=== PATIENT | male | born 1970 | race Caucasian/White ===

== ENCOUNTER 2020-02-14 10:33 | Emergency (ER) | payer MEDICAID, SELFPAY ==
[2020-02-14] VITALS (7 sets, daily range): BP systolic 137–175; BP diastolic 82–101; PULSE 62–85; RESP 18–20; TEMP 36.4; O2SAT 97–99; BMI 35.7
[2020-02-14] MEDS: sodium chloride 0.9% 1,000 ML 999 ML IV (11:02)
--- NOTE | 2020-02-14 11:11 | XR_ITS ---
WS: [id number] PORTABLE CHEST HISTORY: cough COMPARISON: None available. Lungs are clear and well expanded. No pleural effusion or pneumothorax. Cardiac size: Normal. Mediastinum/Aorta: Normal mediastinum. No osseous abnormality seen. XR/XR chest 1V portable [id number] IMPRESSION: Unremarkable portable chest.
--- NOTE | 2020-02-14 11:11 | CT_ITS ---
WS: [id number] CT ABDOMEN AND PELVIS WITH CONTRAST HISTORY: Abdominal pain TECHNIQUE: Imaging performed of the abdomen and pelvis with IV contrast. Single phase imaging of the abdomen. Coronal and sagittal reformats are submitted. All CT scans at [facility] use at least one of these dose optimization techniques: automated exposure control; mA and/or kV adjustment per patient size (includes targeted exams where dose is matched to clinical indication); or iterativ e reconstruction. IV CONTRAST: Visipaque 320; 95 mL IV. Oral contrast: No DLP: 1578.79 mGy.cm COMPARISON: None available. Lower thorax: Lung bases are clear. Heart is normal size. Small hiatal hernia. Liver/biliary system: Normal size liver with mild hepatic steatosis. No metastatic lesions. No intrah epatic dilatation. Gallbladder: Prior cholecystectomy. Pancreas: Normal. Spleen: Normal. Adrenal glands: Normal. Right kidney: Horseshoe shaped kidney. No obstruction or mass. Left kidney: Horseshoe shaped kidney with no obstruction or mass. Aorta: A few scattered calcified plaques within the aorta. No aneurysm. Bilateral accessory renal art eries. Several accessory renal arteries on the RIGHT. Lymphadenopathy: None. Free fluid: None. GI tract: Moderate fecal retention throughout the entire colon. The appendix is normal. There are sev eral sigmoid diverticula without acute diverticulitis. Motion artifact in the RIGHT colon obscuring d etail. May be from peristalsis. There are several overlapping loops of colon. Abdominal wall: Abdominal hernia repair with mesh attachment. No recurrent hernia. Pelvis: Well-distended urinary bladder. Bladder diverticulum from the posterior LEFT urinary bladder measures 13 mm in the ureter may insert into the diverticulum. Bones: Unremarkable. CT/CT abdomen pelvis w con* [id number] IMPRESSION: 1. No acute abdominal or pelvic abnormalities are identified. 2. Diffuse constipation. 3. Horseshoe-shaped kidneys. 4. Normal appendix. 5. Sigmoid diverticulosis without acute diverticulitis. 6. Small hiatal hernia. 7. Posterior LEFT lateral urinary bladder diverticulum.
--- NOTE | 2020-02-14 11:15 | W.ED.ABDPA2 ---
HPI - Abdominal Pain General: Chief Complaint: Abdominal Pain Stated Complaint: ABDOMINAL SWELLING AND MESH ISSUES Time Seen by Provider: 02/14/20 11:06 History of Present Illness: HPI narrative: Mr. Arteaga is a nice 49-year-old male who comes in complaining of prolonged abdominal pain. He is a difficult historian and has a hard time answering questions directly. He has a tendency to want to ramble off all of his total medical problems and has a hard time focusing on answering the questions I have asked. What I can gather is he has had a prolonged issue with abdominal pain, multiple abdominal surgeries and because of his ongoing abdominal pain his surgeon in [facility] is requesting that he have some outpatient lab work and a CT scan. He states he has had a prolonged problem with constipation and may not be vomiting as well. He denies any urinary symptoms, fever, chest pain, shortness of breath or other issues. Associated Symptoms: Reports nausea and vomiting; Denies chills, coffee ground emesis, GI cramping, diarrhea, dysuria, fever(s), heartburn, hematochezia, hematuria, hematemesis, melena and syncope Review of Systems Const: Denies: fever(s), chills, body aches, fatigue, malaise, night sweats or diaphoresis Eyes: Denies: change in vision, blurry vision or blind spots ENMT: Denies: throat pain, odynophagia, hoarseness, ear or mastoid pain, ear discharge, change in hearing or nasal discharge Card: Denies: chest pain, palpitations, irregular heart rhythm, lightheadedness, syncope, pre-syncope, dyspnea on exertion or orthopnea Resp: Denies: dyspnea, productive cough, non-productive cough, wheezing, hemoptysis or chest congestion GI: Reports: abdominal pain, nausea and vomiting; Denies: hematemesis, coffee ground emesis, heartburn, diarrhea, GI cramping, hematochezia or melena : Denies: flank pain, dysuria, urinary frequency, urinary urgency, oliguria, urinary incontinence or hematuria Musc: Denies: neck pain, back pain, extremity pain, extremity swelling, joint pain, joint swelling, joint redness, joint warmth or joint stiffness Skin/Breast: Denies: rash, pruritus, erythema, skin tenderness or jaundice Neuro: Denies: headache(s), numbness in extremities, weakness in extremities, sensory changes, lack of coordination, difficulty walking, dizziness, vertigo, confusion or Slurred speech present Endo: Denies: polyuria, polydipsia, tired all the time, cold intolerance, excessive sweating, flushing, hot flashes or heat intolerance Jordin/Lymph: Denies: easy bruising, easy bleeding, petechiae, purpura or enlarged lymph nodes All/Imm: Denies: urticaria, throat swelling, tongue swelling, facial swelling or acute wheezing PFSH ED PFSH: Medical History COPD (chronic obstructive pulmonary disease) Degenerative disc disease Hypertension Obstructive sleep apnea Rheumatoid arthritis Surgical History (Updated 02/14/20 @ 11:18 by Angie Rodriguez) H/O abdominal surgery H/O colonoscopy H/O sinus surgery History of esophagogastroduodenoscopy (EGD) Social History Smoking and tobacco status: never smoked Physical Exam Const: COMMON NORMALS: no acute distress, patient oriented x3, no limitations, healthy appearing and well nourished EXAM LIMITATIONS: no altered mental status GENERAL APPEARANCE: cooperative, well kempt and well developed HENMT: COMMON NORMALS: normocephalic, atraumatic, hearing grossly normal bilaterally, external ears normal, EAC's normal, Normal external nose present and moist oral mucous membranes HEAD & SCALP: normal to inspection, normocephalic and atraumatic FACE & SINUS: normal facial exam and face symmetric NOSE: Normal external nose present and Normal nares present EXTERNAL EAR: Yes external ears normal EXTERNAL AUDITORY CANAL: EAC's normal MOUTH: Normal oral and palatal mucosa present, lip normal and tongue normal Eye: COMMON NORMALS: Equal, round and reactive pupils present, EOMs intact bilaterally, conjunctivae normal and no scleral icterus GENERAL EYE: appearance normal, both eyes and all related structures and normal light reflex ALIGNMENT: Yes alignment normal PERIORBITAL: periorbital findings normal EYELID: eyelids normal CONJUNCTIVA: Yes conjunctivae normal SCLERA: sclerae normal PUPIL: Yes Equal, round and reactive pupils present DIRECT OPHTHALMOSCOPY: Yes normal light reflex Neck/C-Spine: COMMON NORMALS: full ROM, no lymphadenopathy, supple, no meningeal signs and no JVD GENERAL: Yes normal visual inspection and Yes trachea midline CERVICAL SPINE: Yes cervical ROM normal Chest: COMMONS NORMALS: normal inspection of the chest and normal palpation of entire chest wall Resp: COMMON NORMALS: normal respiratory effort, No retractions and No use of accessory muscles EFFORT & INSPECTION: Yes able to speak in complete sentences and Yes audible wheezes AUSCULTATION: no crackles, no rales, no rhonchi and wheezes Cardio: COMMON NORMALS: no JVD, regular rate, regular rhythm, S1 normal heart sound present, S2 normal heart sound present, No gallops present (Cardio), No clicks present (Cardio), No murmurs present (Cardio) and No rub (Cardio) RATE: regular rate RHYTHM: regular rhythm HEART SOUNDS: S1 normal heart sound present, S2 normal heart sound present, no click, no gallops, no murmurs and no rubs GI: COMMON NORMALS: Soft to palpation, No hepatosplenomegaly present and no masses PALPATION: Yes Soft to palpation, Yes Tenderness to palpation present (GI) (Mild diffusely without rebound, guarding or rigidity.), No Guarding due to palpation present (GI), No Rigid due to palpation, Yes No hepatosplenomegaly present, No Hernia present, No Palpable mass present and No Pulsatile mass present : COMMON NORMALS: Yes no CVA tenderness BLADDER/KIDNEY EXAM: Yes no CVA tenderness Back/Pelvis: COMMON NORMALS: no CVA tenderness, thoracic and lumbar spine normal to inspection, no thoracic nor lumbar tenderness and thoraco-lumbar ROM normal Extremity: COMMON NORMALS: normal to inspection, full ROM, capillary refill normal, no joint enlargement, no clubbing, cyanosis or edema and no calf tenderness Neuro: ARINA COMA SCALE: document GCS findings Shoshoni coma scale eye opening: Spontaneous Shoshoni coma scale verbal response: Orientated Arina coma scale motor response: Obey commands Arina coma scale total score: 15 COMMON NORMALS: patient oriented x3, CN's II-XII intact bilaterally, moves all extremities, no focal motor deficits and no sensory deficits noted MENINGEAL SIGNS: Yes no meningeal signs SPEECH: speech normal Psych: COMMON NORMALS: mental status grossly normal, Normal thought process present, cooperative, normal affect, speech normal and activity/motor behavior normal APPEARANCE: Yes well kempt SPEECH: Yes normal speech THOUGHT PROCESS: Normal thought process present Skin: COMMON NORMALS: no rashes or lesions noted, turgor normal, no jaundice, no petechiae and no mottling GENERAL SKIN EXAM: no rashes or lesions noted and turgor normal Course Vital Signs: Vital signs: Vital Signs Temperature 97.6 F 02/14/20 11:08 Pulse Rate 85 02/14/20 14:00 Respiratory Rate 18 02/14/20 14:00 Blood Pressure 144/93 02/14/20 14:00 Pulse Oximetry 97 02/14/20 14:00 MDM - Abdominal Pain MDM Narrative: Medical decision making narrative: Arrival -Mr. Arteaga is a 49-year-old male he comes in complaining of primarily abdominal pain with associated constipation and vomiting. His vital signs are stable and his exam does not reveal any evidence of a surgical abdomen. Differential is considerable including AAA, bowel obstruction, appendicitis, colitis, ascites among many others. I will proceed with investigation primary toward this but I will also check a chest x-ray and give the patient breathing treatments for his wheezing which I believe his COPD is just mildly exacerbated. He is in no respiratory distress. Discharge -Mr. Gomez CT scan is unremarkable except for constipation. His lactic is negative and by exam he does not have pain out of proportion so believe this rules out mesenteric ischemia. There is no sign of appendicitis. I believe the patient has a long ongoing functional bowel issue. I did discuss the case with his surgeon that he is going to see Wednesday Dr. Miguel, and he agrees with the work-up today and the discharge to follow-up with him. Patient understands to return should his symptoms change or worsen. At this time I see no acute life or limb threatening illness. His lungs are cleared after his breathing treatments. He agrees to follow-up as directed or return if needed. Lab Data: Attestation: I reviewed the patient's lab results. Labs: Lab Results 02/14/20 02/14/20 02/14/20 Range/Units 11:45 11:45 11:45 WBC 6.9 (4.0-10.0) 10^3/ uL RBC 4.52 (4.1-5.3) 10^6/u L Hgb 13.5 (11.7-16.6) g/dL Hct 40.0 L (42.0-52.0) % MCV 88.5 (80-94) fL MCH 29.9 (28.0-34.0) pg MCHC 33.8 (30.0-36.0) g/dL RDW 12.3 (12.1-15.1) % Plt Count 251 (130-400) 10^3/c mm MPV 11.9 H (7.4-10.4) fL Nucleated RBC % (a uto) 0 % Total Counted 100 (0-100) Segmented Neutroph ils 37 % Band Neutrophils 4.0 % Lymphocytes (Manua l) 43 % Monocytes (Manual) 9.0 % Absolute Monocytes 0.6 (0.1-0.6) 10^3/c mm Eosinophils (Manua l) 4 % Absolute Eosinophi ls 0.2 (0.0-0.7) 10^3/c mm Myelocytes 3.0 % Nucleated RBCs # 0.0 /100WBC Platelet Estimate Normal (Normal) Specimen Type Sample Site ABG pH (7.35-7.45) ABG pCO2 (35-45) mmHg ABG HCO3 (22-26) mmol/L ABG Base Excess (-2.0-2.0) mmol/ L David Test Hematocrit (42-52) % O2 Delivery Device O2 Liters/Min % FiO2 % Educational Institution Curator ID Sodium 137 (136-145) mmol/L Potassium 3.8 (3.5-5.1) mmol/L Chloride 102 (98-107) mmol/L Carbon Dioxide 25 (22-29) mmol/L Anion Gap 13.8 (5-19) BUN 6 (6-20) mg/dL Creatinine 0.7 (0.7-1.2) mg/dL GFR Calculation 119.9 (90-130) mL/min Glucose 121 H (65-115) mg/dL Calculated Osmolal ity 281 L (285-295) mOsm/k g Lactic Acid (0.5-2.2) mmol/L Calcium 10.1 (8.5-10.5) mg/dL Magnesium 2.2 (1.7-2.3) mg/dL Total Bilirubin 0.2 (0.15-1.2) mg/dL AST 32 (0-40) U/L ALT 57 H (0-41) U/L Alkaline Phosphata se 65 (40-130) IU/L Troponin T Baselin e (0-15) ng/mL Troponin T 120 Min kashia (0-15) ng/mL Delta Troponin T (0-10) ABS# Total Protein 7.6 (6.6-8.7) g/dL Albumin 4.4 (3.5-5.2) g/dL Globulin 3.2 (1.3-4.6) g/dL Lipase 27 (13-60) U/L Urine Color Yellow (Yellow) Urine Appearance Sl hazy (CLEAR) Urine pH 8 H (5-7) Ur Specific Gravit y 1.010 (1.005-1.030) Urine Protein Neg (Negative) Urine Glucose (UA) Norm (Normal) Urine Ketones Negative (Negative) Urine Blood Neg (Negative) Urine Nitrate Negative (Negative) Urine Bilirubin Neg (NEGATIVE) Urine Urobilinogen Norm (Negative) mg/dL Ur Leukocyte Angeline ase Negative (Negative) Urine RBC None (0-2) /hpf Urine WBC None (0-5) /hpf Ur Squamous Epith Cells 0-4 H (0-5) Urine Bacteria 1+ H (NONE) 02/14/20 02/14/20 02/14/20 Range/Units 11:45 12:20 12:48 WBC (4.0-10.0) 10^3/ uL RBC (4.1-5.3) 10^6/u L Hgb (11.7-16.6) g/dL Hct (42.0-52.0) % MCV (80-94) fL MCH (28.0-34.0) pg MCHC (30.0-36.0) g/dL RDW (12.1-15.1) % Plt Count (130-400) 10^3/c mm MPV (7.4-10.4) fL Nucleated RBC % (a uto) % Total Counted (0-100) Segmented Neutroph ils % Band Neutrophils % Lymphocytes (Manua l) % Monocytes (Manual) % Absolute Monocytes (0.1-0.6) 10^3/c mm Eosinophils (Manua l) % Absolute Eosinophi ls (0.0-0.7) 10^3/c mm Myelocytes % Nucleated RBCs # /100WBC Platelet Estimate (Normal) Specimen Type Not specified Sample Site Radial, right ABG pH 7.37 (7.35-7.45) ABG pCO2 51.3 H (35-45) mmHg ABG HCO3 29.4 H (22-26) mmol/L ABG Base Excess 3.0 H (-2.0-2.0) mmol/ L David Test Pos Hematocrit 39.8 L (42-52) % O2 Delivery Device Nc O2 Liters/Min 1.0 % FiO2 24.0 % Educational Institution Curator ID amh Sodium (136-145) mmol/L Potassium (3.5-5.1) mmol/L Chloride (98-107) mmol/L Carbon Dioxide (22-29) mmol/L Anion Gap (5-19) BUN (6-20) mg/dL Creatinine (0.7-1.2) mg/dL GFR Calculation (90-130) mL/min Glucose (65-115) mg/dL Calculated Osmolal ity (285-295) mOsm/k g Lactic Acid 1.2 (0.5-2.2) mmol/L Calcium (8.5-10.5) mg/dL Magnesium (1.7-2.3) mg/dL Total Bilirubin (0.15-1.2) mg/dL AST (0-40) U/L ALT (0-41) U/L Alkaline Phosphata se (40-130) IU/L Troponin T Baselin e 6 (0-15) ng/mL Troponin T 120 Min kashia (0-15) ng/mL Delta Troponin T (0-10) ABS# Total Protein (6.6-8.7) g/dL Albumin (3.5-5.2) g/dL Globulin (1.3-4.6) g/dL Lipase (13-60) U/L Urine Color (Yellow) Urine Appearance (CLEAR) Urine pH (5-7) Ur Specific Gravit y (1.005-1.030) Urine Protein (Negative) Urine Glucose (UA) (Normal) Urine Ketones (Negative) Urine Blood (Negative) Urine Nitrate (Negative) Urine Bilirubin (NEGATIVE) Urine Urobilinogen (Negative) mg/dL Ur Leukocyte Angeline ase (Negative) Urine RBC (0-2) /hpf Urine WBC (0-5) /hpf Ur Squamous Epith Cells (0-5) Urine Bacteria (NONE) 05/13/20 Range/Units 13:40 WBC (4.0-10.0) 10^3/ uL RBC (4.1-5.3) 10^6/u L Hgb (11.7-16.6) g/dL Hct (42.0-52.0) % MCV (80-94) fL MCH (28.0-34.0) pg MCHC (30.0-36.0) g/dL RDW (12.1-15.1) % Plt Count (130-400) 10^3/c mm MPV (7.4-10.4) fL Nucleated RBC % (a uto) % Total Counted (0-100) Segmented Neutroph ils % Band Neutrophils % Lymphocytes (Manua l) % Monocytes (Manual) % Absolute Monocytes (0.1-0.6) 10^3/c mm Eosinophils (Manua l) % Absolute Eosinophi ls (0.0-0.7) 10^3/c mm Myelocytes % Nucleated RBCs # /100WBC Platelet Estimate (Normal) Specimen Type Sample Site ABG pH (7.35-7.45) ABG pCO2 (35-45) mmHg ABG HCO3 (22-26) mmol/L ABG Base Excess (-2.0-2.0) mmol/ L David Test Hematocrit (42-52) % O2 Delivery Device O2 Liters/Min % FiO2 % Educational Institution Curator ID Sodium (136-145) mmol/L Potassium (3.5-5.1) mmol/L Chloride (98-107) mmol/L Carbon Dioxide (22-29) mmol/L Anion Gap (5-19) BUN (6-20) mg/dL Creatinine (0.7-1.2) mg/dL GFR Calculation (90-130) mL/min Glucose (65-115) mg/dL Calculated Osmolal ity (285-295) mOsm/k g Lactic Acid (0.5-2.2) mmol/L Calcium (8.5-10.5) mg/dL Magnesium (1.7-2.3) mg/dL Total Bilirubin (0.15-1.2) mg/dL AST (0-40) U/L ALT (0-41) U/L Alkaline Phosphata se (40-130) IU/L Troponin T Baselin e (0-15) ng/mL Troponin T 120 Min kashia 6.74 (0-15) ng/mL Delta Troponin T 0.74 (0-10) ABS# Total Protein (6.6-8.7) g/dL Albumin (3.5-5.2) g/dL Globulin (1.3-4.6) g/dL Lipase (13-60) U/L Urine Color (Yellow) Urine Appearance (CLEAR) Urine pH (5-7) Ur Specific Gravit y (1.005-1.030) Urine Protein (Negative) Urine Glucose (UA) (Normal) Urine Ketones (Negative) Urine Blood (Negative) Urine Nitrate (Negative) Urine Bilirubin (NEGATIVE) Urine Urobilinogen (Negative) mg/dL Ur Leukocyte Angeline ase (Negative) Urine RBC (0-2) /hpf Urine WBC (0-5) /hpf Ur Squamous Epith Cells (0-5) Urine Bacteria (NONE) Imaging Data ^: CT Abd/Pel: Radiologist's impression: [place] [address] CT Scan Report Signed Patient: OMAR GOMEZ Unit #: [id number] : 1970 Age/Sex: 49 / M ADM Date: 02/14/20 Loc: ER Room/Bed: Attending Dr: Ordering Provider/Ordering MD: Angie Rodriguez DO Date of Service: 02/14/20 Procedure(s): CT abdomen pelvis w con* [id number] Accession Number(s): [id number] Report Number: [id number] WS: [id number] CT ABDOMEN AND PELVIS WITH CONTRAST HISTORY: Abdominal pain TECHNIQUE: Imaging performed of the abdomen and pelvis with IV contrast. Single phase imaging of the abdomen. Coronal and sagittal reformats are submitted. All CT scans at [facility] use at least one of these dose optimization techniques: automated exposure control; mA and/or kV adjustment per patient size (includes targeted exams where dose is matched to clinical indication); or iterative reconstruction. IV CONTRAST: Visipaque 320; 95 mL IV. Oral contrast: No DLP: 1578.79 mGy.cm COMPARISON: None available. Lower thorax: Lung bases are clear. Heart is normal size. Small hiatal hernia. Liver/biliary system: Normal size liver with mild hepatic steatosis. No metastatic lesions. No intrahepatic dilatation. Gallbladder: Prior cholecystectomy. Pancreas: Normal. Spleen: Normal. Adrenal glands: Normal. Right kidney: Horseshoe shaped kidney. No obstruction or mass. Left kidney: Horseshoe shaped kidney with no obstruction or mass. Aorta: A few scattered calcified plaques within the aorta. No aneurysm. Bilateral accessory renal arteries. Several accessory renal arteries on the RIGHT. Lymphadenopathy: None. Free fluid: None. GI tract: Moderate fecal retention throughout the entire colon. The appendix is normal. There are several sigmoid diverticula without acute diverticulitis. Motion artifact in the RIGHT colon obscuring detail. May be from peristalsis. There are several overlapping loops of colon. Abdominal wall: Abdominal hernia repair with mesh attachment. No recurrent hernia. Pelvis: Well-distended urinary bladder. Bladder diverticulum from the posterior LEFT urinary bladder measures 13 mm in the ureter may insert into the diverticulum. Bones: Unremarkable. CT/CT abdomen pelvis w con* [id number] IMPRESSION: 1. No acute abdominal or pelvic abnormalities are identified. 2. Diffuse constipation. 3. Horseshoe-shaped kidneys. 4. Normal appendix. 5. Sigmoid diverticulosis without acute diverticulitis. 6. Small hiatal hernia. 7. Posterior LEFT lateral urinary bladder diverticulum. Dictated By: Cindy Coates DO Signed By: Cindy Coates DO Signed Date/Time: 02/14/20 1250 DD/ 1243 EKG Data ^: EKG 1: Attestation: I personally reviewed and interpreted this EKG as follows: EKG interpretation date: 02/14/20 EKG interpretation time: 13:52 Interpretation: Normal sinus rhythm at 76 beats a minute, no blocks, normal intervals, no acute ST or T wave changes. Discharge Plan Discharge Patient Disposition: Home, Self-Care Clinical Impression: Abdominal pain Qualifiers: Abdominal location: generalized Qualified Code(s): R10.84 - Generalized abdominal pain Constipation Qualifiers: Constipation type: unspecified constipation type Qualified Code(s): K59.00 - Constipation, unspecified Condition: Stable Prescriptions: New Zofran 4 mg tablet 4 mg PO Q6H PRN (Reason: nausea and vomiting) Qty: 20 RF: 0 lactulose 20 gram packet 20 gm PO DAILY Qty: 30 RF: 0 No Action ipratropium-albuterol 0.5 mg-3 mg(2.5 mg base)/3 mL Solution For Nebulization 3 ml INHALATION TID PRN (Reason: Shortness Of Breath) RF: 0 Topamax 25 mg Tablet 25 mg PO BID RF: 0 omeprazole 40 mg Capsule,Delayed Release(Dr/Ec) 40 mg PO DAILY RF: 0 sildenafil 100 mg Tablet 100 mg PO DAILY PRN (Reason: Sexual Activity) RF: 0 meloxicam 7.5 mg Tablet 7.5 mg PO DAILY RF: 0 alprazolam 0.5 mg Tablet 0.5 mg PO TID PRN (Reason: Anxiety) RF: 0 Flomax 0.4 mg Capsule 0.4 mg PO DAILY RF: 0 amlodipine 10 mg Tablet 10 mg PO DAILY RF: 0 esomeprazole magnesium 40 mg Capsule,Delayed Release(Dr/Ec) 40 mg PO DAILY RF: 0 promethazine 25 mg Tablet 25 mg PO Q6H PRN (Reason: Nausea) RF: 0 DOK 100 mg Capsule 100 mg PO BID RF: 0 albuterol sulfate 90 mcg/actuation Hfa Aerosol Inhaler 2 puff INHALATION TID PRN (Reason: Shortness Of Breath) RF: 0 metoclopramide HCl 10 mg Tablet 10 mg PO DAILY RF: 0 hydroxyzine pamoate 25 mg Capsule 25 mg PO TID PRN (Reason: Anxiety) RF: 0 tizanidine 4 mg Capsule 4 mg PO Q6H PRN (Reason: Muscle Pain) RF: 0 Symbicort 80-4.5 mcg/actuation Hfa Aerosol Inhaler 2 puff INHALATION BID RF: 0 Mucinex 1,200 mg Tablet Extended Release 12hr 1,200 mg PO BID RF: 0 Butrans 7.5 mcg/hour Patch Weekly 1 patch TRANSDERMAL Q7D RF: 0 Discharge Orders: Discharge Order (Routine); Ordered 02/14/20 Ordered By: Angie Rodriguez Discharge Diet: Advance as tolerated and Clear Liquid Discharge Activity: Resume usual activity Patient Instructions: Abdominal Pain (ED) Activity Restrictions/Additional Instructions: Please return to the ER immediately for any of the signs or symptoms listed on your discharge instruction sheets, worsening/changing of your symptoms, you are not getting better as quickly as expected, or for ANY other cause or concerns. Return tomorrow to get a copy of your medical records. Take these with you to your appointment on Wednesday with Dr. Miguel. If your pain becomes worse, you develop a fever, you began to vomit, or have any other problems please return to the ER immediately for recheck. Coding Level of Care Code ED Clothes Separator for Rob Fwd Exam Comprehensive
[2020-02-14] MEDS: ondansetron 2 mg/ML SDV 2 mL 4 MG IVP (11:35)
[2020-02-14] MEDS: sodium chloride 0.9% 1,000 ML 100 ML IV (11:35)
[2020-02-14 12:09] LABS: Hemoglobin 13.5 g/dL (11.7-16.6); Mean Corpuscular HGB Conc 33.8 g/dL (30.0-36.0); Mean Corpuscular Hemoglobin 29.9 pg (28.0-34.0); Mean Corpuscular Volume 88.5 fL (80-94); Mean Platelet Volume 11.9 fL (7.4-10.4); Nucleated Red Blood Cells % 0 %; Platelet Count 251 10^3/cmm (130-400); Red Blood Count 4.52 10^6/uL (4.1-5.3); Red Cell Distribution Width 12.3 % (12.1-15.1); White Blood Count 6.9 10^3/uL (4.0-10.0)
[2020-02-14] MEDS: iodixanol 320 mg/mL 100mL Btl IV (12:16)
[2020-02-14] MEDS: ipratropium-albuterol 3 mL Neb 9 ML INHALATION (12:21)
[2020-02-14 12:22] LABS: Alanine Aminotransferase 57 U/L (0-41); Albumin Level 4.4 g/dL (3.5-5.2); Alkaline Phosphatase 65 IU/L (40-130); Anion Gap 13.8 (5-19); Aspartate Amino Transferase 32 U/L (0-40); Blood Urea Nitrogen 6 mg/dL (6-20); Calcium 10.1 mg/dL (8.5-10.5); Carbon Dioxide 25 mmol/L (22-29); Chloride 102 mmol/L (98-107); Creatinine Clr Calc Pharmacy 151.0846; Globulin 3.2 g/dL (1.3-4.6); Glomerular Filtration Rate 119.9 mL/min (90-130); Glucose 121 mg/dL (65-115); Lipase 27 U/L (13-60); Magnesium 2.2 mg/dL (1.7-2.3); Osmolality Calculated 281 mOsm/kg (285-295); Potassium 3.8 mmol/L (3.5-5.1); Sodium 137 mmol/L (136-145); Total Bilirubin 0.2 mg/dL (0.15-1.2); Total Protein 7.6 g/dL (6.6-8.7)
[2020-02-14 12:31] LABS: Urine Appearance SL Hazy (CLEAR); Urine Color Yellow (Yellow)
[2020-02-14 12:31] LABS: ABG PCO2 51.3 mmHg (35-45); ABG PH Result 7.37 (7.35-7.45); Arterial Blood Gas Hematocrit 39.8 % (42-52); Blood Gas Allen Test Pos; Blood Gas Operator Identificat amh; Blood Gas Sample Site Radial, right; HCO3 ABG 29.4 mmol/L (22-26); Oxygen Device NC; PO2 ABG 39.6 mmHg (80.0-100.0)
[2020-02-14 12:32] LABS: Blood Gas Sample Type Not specified
[2020-02-14 12:32] LABS: pH Urine 8 (5-7)
[2020-02-14 12:33] LABS: Bilirubin Urine Neg (NEGATIVE); Blood Urine Neg (Negative); Glucose Urine UA Norm (Normal); Ketones Urine Negative (Negative); Leukocyte Esterase Urine Negative (Negative); Nitrate Urine Negative (Negative); Protein Urine Neg (Negative); Urobilinogen Urine Norm (Negative)
--- NOTE | 2020-02-14 12:33 | ECG_ITS ---
Measurements Intervals [place] Rate: 73 P: 62 NV: 181 QRS: -5 QRSD: 106 T: 14 QT: 398 QTc: 440 SINUS RHYTHM No previous ECG available for comparison Electronically Signed On 02-14-2020 20:33:17 CDT by Sharlene Becerra M.D. [email or web address]
[2020-02-14 12:34] LABS: Bacteria Urine 1+; Squamous Epithelial Cell Urine 0-4 (0-5)
[2020-02-14 12:35] LABS: Add Urine Culture? No
[2020-02-14 13:06] LABS: Lactic Sepsis W/Reflex 1.2 mmol/L (0.5-2.2)
[2020-02-14 13:06] LABS: Slide Review Slide Review Perform; Troponin(5th) Baseline 6 ng/mL (0-15)
[2020-02-14 13:09] LABS: Absolute Eosinophils 0.2 10^3/cmm (0.0-0.7); Absolute Segmented Neutrophil 2.5 10/cmm (1.6-7.1); Band Neutrophils Absolute 0.3 10^3/cmm (0.0-1.2); Eosinophils 4 %; Lymphocytes 43 %; Monocytes Absolute 0.6 10^3/cmm (0.1-0.6); Platelet Estimate Normal (Normal); Segmented Neutrophils 37 %; Total Cells Counted 100 (0-100)
[2020-02-14 14:04] LABS: Troponin 5 2HR 6.74 ng/mL (0-15); Troponin 5 2HR Delta 0.74 ABS# (0-10)
[2020-02-14] MEDS: metoclopramide 5 mg/mL SDV 2 mL 10 MG IV (14:10)
== END 2020-02-14 15:02 | disposition home or self-care (01) ==
PROVIDERS: Emergency Provider Emergency Medicine
DX: K59.00 Constipation, unspecified (principal); J44.9 Chronic obstructive pulmonary disease, unspecified; I10 Essential (primary) hypertension; M06.9 Rheumatoid arthritis, unspecified
CPT/HCPCS: 12345; 36415; 36600; 71045; 74177; 80053; 81001; 82803; 83605; 83690; 83735; 84484; 85007; 85025; 93005; 94640; 96361; 96374; 96375; 96376; 99284; J0131; J2405; J2765; J7030; Q9967

== ENCOUNTER 2020-06-03 08:59 | Outpatient (CLI) | payer MEDICAID, SELFPAY ==
--- NOTE | 2020-06-03 09:05 | US_ITS ---
WS: [id number] Complete ABDOMINAL ULTRASOUND HISTORY: CARCINOMA R GROIN/ABD PAIN/N/V/COLON CA/PROSTATE CA COMPARISON: 02/14/2020 Disc examination is significantly limited by body habitus. Liver: 18.7 cm in length. Moderate enlargement with hepatic steatosis. No mass identified. No bile du ct dilatation. Gallbladder: Prior cholecystectomy. Pancreas: Hypoechoic area near the pancreatic head. The entire pancreas is poorly visualized. This hy poechoic area may impart be related to the IVC, portal vein or stomach. Patient's body habitus makes this examination is adequate. CBD: 0.3 cm. Right kidney: 11.4 cm x 5.7 cm x 5.1 cm. No mass, cortical thickening or hydronephrosis. Patient has a known horseshoe kidney. Left kidney: 10.6 cm x 3.9 cm x 5.5 cm. No mass, cortical thickening or hydronephrosis. Spleen: Normal size and echogenicity. Aorta and IVC are not well visualized. No ascites. US/US abdomen complete* [id number] IMPRESSION: 1. Technically very limited evaluation of the abdominal structures due to body habitus. 2. Prior cholecystectomy. 3. Horseshoe kidney. 4. Abnormal appearance of the pancreas. Pancreas is poorly visualized. Recent CT from 02/14/2020 demonstrated a normal pancreas. May need follow-up imaging of the pancreas and abdominal structures by CT with contrast to better evaluate f or abnormalities. 5. Hepatic steatosis and hepatomegaly. 6. No ascites.
== END 2020-06-03 09:00 | disposition home or self-care (01) ==
LOC: RAD 08:59
PROVIDERS: PCP Nurse Practitioner Family; Visit Provider Nurse Practitioner Family
DX: C76.3 Malignant neoplasm of pelvis (principal); R10.9 Unspecified abdominal pain; C18.9 Malignant neoplasm of colon, unspecified; C61 Malignant neoplasm of prostate; Q63.1 Lobulated, fused and horseshoe kidney; K76.0 Fatty (change of) liver, not elsewhere classified; R16.0 Hepatomegaly, not elsewhere classified
CPT/HCPCS: 76700

== ENCOUNTER 2020-11-02 20:37 | Observation (INO) | payer MEDICAID, SELFPAY ==
[2020-11-02 20:56] VITALS: BP 152/81; PULSE 94; RESP 14; TEMP 36.6; O2SAT 98; BMI 33.1
[2020-11-02 21:15] VITALS: BP 141/81; PULSE 88; RESP 18; O2SAT 98
--- NOTE | 2020-11-02 21:15 | ECG_ITS ---
[facility] Test Date: 2020-11-02 Pat Name: Paco Escobedo Department: Room: 103 Gender: Male Clinical Pharmacologist: JAZZY CAMPBELLB: 1970 Requested By: Kimani Rowe Order Number: [id number] Shawna MD: Darwin Hand M.D. Measurements Intervals [place] Rate: 89 P: 48 AL: 157 QRS: -14 QRSD: 106 T: 59 QT: 355 QTc: 433 Interpretive Statements SINUS RHYTHM Compared to ECG 02/14/2020 13:51:14 No significant changes Electronically Signed On 11-03-2020 17:03:58 ROLL PLUGGER MACHINE OPERATOR by Darwin Hand M.D. [id number]
--- NOTE | 2020-11-02 21:15 | XRR_ITS ---
PROCEDURE INFORMATION: Exam: XR Chest, 1 View Exam date and time: 11/02/2020 9:19 PM Age: 50 years old Clinical indication: Chest pain; Additional info: Cp TECHNIQUE: Imaging protocol: XR of the chest Views: 1 view. COMPARISON: CR XR chest 1V portable [id number] 02/14/2020 11:53 AM FINDINGS: Lungs: Unremarkable. No consolidation. Pleural spaces: Unremarkable. No pleural effusion. No pneumothorax. Heart/Mediastinum: Unremarkable. No cardiomegaly. Bones/joints: Unremarkable. XR/XR chest 1V portable [id number] IMPRESSION: No acute findings.
[2020-11-02 21:37] VITALS: BP 154/81; PULSE 108; RESP 18; O2SAT 97
[2020-11-02 21:37] LABS: Basophils # 0.1 10^3/uL (0.0-0.1); Basophils % 0.6 %; Eosinophils # 0.3 10^3/uL (0.0-0.8); Eosinophils % 3.3 %; Hematocrit 41.3 % (42.0-52.0); Hemoglobin 13.7 g/dL (11.7-16.6); Lymphocytes # 2.8 10^3/uL (0.8-4.8); Lymphocytes % 33.5 %; Mean Corpuscular HGB Conc 33.2 g/dL (30.0-36.0); Mean Corpuscular Hemoglobin 29.5 pg (28.0-34.0); Mean Corpuscular Volume 88.8 fL (80-94); Mean Platelet Volume 11.1 fL (7.4-10.4); Monocytes # 0.6 10^3/uL (0.2-0.9); Monocytes % 6.8 %; Neutrophils # 4.67 10^3/uL (1.8-7.7); Neutrophils % 55.2 %; Nucleated Red Blood Cells % 0 %; Platelet Count 275 10^3/cmm (130-400); Red Blood Count 4.65 10^6/uL (4.1-5.3); Red Cell Distribution Width 13.1 % (12.1-15.1); White Blood Count 8.5 10^3/uL (4.0-10.0)
[2020-11-02 21:50] LABS: D Dimer <= 0.27 ug/mIFEU (0-0.59)
[2020-11-02] MEDS: aspirin 81 mg Chew Tablet 324 MG PO (21:54)
[2020-11-02 21:55] LABS: Troponin(5th) Baseline 8 ng/L (0-15)
[2020-11-02 21:59] LABS: Add Urine Microscopic? NO
[2020-11-02 22:00] VITALS: BP 114/49; PULSE 91; RESP 18; O2SAT 98
[2020-11-02 22:03] LABS: Alanine Aminotransferase 43 U/L (0-41); Albumin Level 4.4 g/dL (3.5-5.2); Alkaline Phosphatase 74 IU/L (40-130); Anion Gap 14.4 (5-19); Aspartate Amino Transferase 27 U/L (0-40); Blood Urea Nitrogen 18 mg/dL (6-20); Calcium 9.6 mg/dL (8.5-10.5); Carbon Dioxide 24 mmol/L (22-29); Chloride 103 mmol/L (98-107); Globulin 2.4 g/dL (1.3-4.6); Glomerular Filtration Rate 89.3 mL/min (90-130); Glucose 119 mg/dL (65-115); NT Pro B Type Natriuretic Pept 8 pg/mL (0-125); Osmolality Calculated 289 mOsm/kg (285-295); Potassium 3.4 mmol/L (3.5-5.1); Sodium 138 mmol/L (136-145); Total Bilirubin 0.4 mg/dL (0.15-1.2); Total Protein 6.8 g/dL (6.6-8.7)
[2020-11-02 22:38] LABS: Bilirubin Urine Neg (Negative); Blood Urine Neg (Negative); Glucose Urine UA Norm (Normal); Ketones Urine 1+ (Negative); Leukocyte Esterase Urine Negative (Negative); Nitrate Urine Negative (Negative); Protein Urine Neg (Negative); Urine Appearance Clear (CLEAR); Urine Color Yellow (Yellow); Urobilinogen Urine 1 mg/dL (Negative); pH Urine 5 (5-7)
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
[2020-11-02 23:00] VITALS: BP 103/56; PULSE 79; RESP 18; O2SAT 98
--- NOTE | 2020-11-02 23:15 | ECG_ITS ---
[facility] Test Date: 2020-11-02 Pat Name: Paco Escobedo Department: Room: 103 Gender: Male Wall And Floor Tiler: : 1970 Requested By: Kimani Rowe Order Number: [id number] Matos MD: Darwin Hand M.D. Measurements Intervals [place] Rate: 78 P: 55 MI: 171 QRS: -18 QRSD: 100 T: 51 QT: 392 QTc: 447 Interpretive Statements SINUS RHYTHM INCOMPLETE RIGHT BUNDLE BRANCH BLOCK [90+ ms QRS DURATION, TERMINAL R IN V1/V2, 40+ ms S IN I/aVL/V4/V5/V6] Compared to ECG 02/14/2020 13:51:14 Incomplete right bundle-branch block now present Electronically Signed On 11-03-2020 17:06:48 PSYCHIATRIC RN by Darwin Hand M.D. [id number]
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
[2020-11-02] MEDS: nitroglycerin 0.4 mg sublingual Tablet SUBLINGUAL (23:48)
[2020-11-03] VITALS (60 sets, daily range): BP systolic 118–142; BP diastolic 54–89; PULSE 62–95; RESP 14–25; TEMP 36.7; O2SAT 95–99
[2020-11-03 00:16] LABS: Troponin 5 2HR 7.54 ng/L (0-15)
[2020-11-03] MEDS: acetaminophen 325 mg Tablet 650 MG PO (00:19)
[2020-11-03 00:26] LABS: Troponin 5 2HR Delta -0.46 ABS# (0-10)
[2020-11-03] MEDS: LORazepam 0.5 mg Tablet PO (01:10)
[2020-11-03] MEDS: LORazepam 1 mg Tablet PO (02:33)
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
--- NOTE | 2020-11-03 03:15 | ECG_ITS ---
[facility] Test Date: 2020-11-03 Pat Name: Paco Escobedo Department: Room: 103 Gender: Male Process Consultant: keyon KILPATRICK: 1970 Requested By: Kimani Rowe Order Number: [id number] Shawna MD: Darwin Hand M.D. Measurements Intervals [place] Rate: 77 P: 45 NV: 148 QRS: -27 QRSD: 112 T: 52 QT: 400 QTc: 454 Interpretive Statements SINUS RHYTHM BORDERLINE LEFT AXIS DEVIATION [QRS AXIS < -20] INCOMPLETE RIGHT BUNDLE BRANCH BLOCK [90+ ms QRS DURATION, TERMINAL R IN V1/V2, 40+ ms S IN I/aVL/V4/V5/V6] Compared to ECG 11/02/2020 23:34:21 No significant changes Electronically Signed On 11-03-2020 17:05:46 SHOVELER by Darwin Hand M.D. [id number]
--- NOTE | 2020-11-03 03:22 | USCV_ITS ---
Paco Escobedo Age: 50 Gender: M : 1970 Exam Date: 11/03/2020 06:54 Ordering Phys: Raphael Brandon MD Technologist: Zoey Saini Exam Location: [facility] [place] Indication: Angina BP: 137 / 89 HR: 69 Rhythm: Sinus Technical Quality: Adequate MEASUREMENTS (Male / Female) Normal Values 2D ECHO LV Diastolic Diameter PLAX 4.0 cm 4.2 - 5.9 / 3.9 - 5.3 cm LV Systolic Diameter PLAX 2.4 cm LV Chamber Size 4.4 cm IVS Diastolic Thickness 1.7 cm 0.6 - 1.0 / 0.6 - 0.9 cm IVS Systolic Thickness 1.9 cm LVPW Diastolic Thickness 1.3 cm 0.6 - 1.0 / 0.6 - 0.9 cm LVPW Systolic Thickness 2.0 cm RV Chamber Size 2.7 cm LVOT Diameter 2.1 cm LV Ejection Fraction 2D Teich 70.5 % LV Ejection Fraction MOD 2C 66.4 % LV Ejection Fraction 2C AL 70.9 % LA Diameter 3.2 cm LA Width 3.2 cm LA Height 4.2 cm RA Width 2.5 cm RA Height 4.5 cm Aorta at Sinotubular Diameter 3.4 cm M-MODE LV Diastolic Diameter MM 5.3 cm 4.2 - 5.9 / 3.9 - 5.3 cm LV Systolic Diameter MM 3.5 cm LV Ejection Fraction MM Teich 62.7 % IVS Diastolic Thickness MM 1.1 cm 0.6 - 1.0 / 0.6 - 0.9 cm IVS Systolic Thickness MM 1.5 cm LVPW Diastolic Thickness MM 1.3 cm 0.6 - 1.0 / 0.6 - 0.9 cm LVPW Systolic Thickness MM 1.9 cm RV Diastolic Diameter MM 1.4 cm Aortic Annulus Diameter 3.6 cm LA Ao Ratio MM 1.1 MV E Point Septal Separation 0.6 cm DOPPLER AV Peak Velocity 123.0 cm/s LVOT Peak Velocity 93.0 cm/s AV Area Cont Eq vti 3.3 cm squared AV Area Cont Eq pk 2.7 cm squared MV Area PHT 3.5 cm squared Mitral E to A Ratio 1.3 MV E' Velocity 51.5 cm/s Mitral E to MV E' Ratio 12.0 Mitral E to LV E' Lateral Ratio 12.2 Mitral E to LV E' Septal Ratio 11.9 TR Peak Velocity 219.0 cm/s TR Peak Gradient 19.2 mmHg TV Peak E Velocity 82.0 cm/s Right Atrial Pressure 3.0 mmHg Pulmonary Artery Systolic Pressu 22.2 mmHg PV Peak Velocity 75.0 cm/s RV Acceleration Time 0.1 s RV Ejection Time 0.3 s RV AcT/ET 0.3 FINDINGS Left Ventricle Normal left ventricular size and systolic function with no regional wall motion abnormalities. LVEF is 60 to 65%. Normal diastolic filling pattern. Right Ventricle The right ventricle is normal in size and function. Right Atrium The right atrium is normal in size. Left Atrium The left atrium is normal in size. Mitral Valve Structurally normal mitral valve without significant stenosis or prolapse. There is trace mitral regurgitation. Aortic Valve Structurally normal aortic valve without significant sclerosis or stenosis. There is no aortic regurgitation. Tricuspid Valve Structurally normal tricuspid valve without significant stenosis or regurgitation. Insufficient TR jet to calculate RVSP. Pulmonic Valve Structurally normal pulmonic valve without significant stenosis. There is no pulmonic regurgitation. Pericardium Trivial pericardial effusion is seen. Aorta Normal ascending aorta dimension. CONCLUSIONS LV systolic function is normal with EF of 60 to 65%. Normal diastolic function Trace mitral regurgitation is seen. Trivial pericardial effusion is seen. No comparison studies are available. Darwin Hand MD (Electronically Signed) Final Date: 03 November 2020 17:13 S
[2020-11-03] MEDS: enoxaparin 40 mg/0.4 mL Syringe SUBCUT (03:38)
[2020-11-03] MEDS: ondansetron 2 mg/ML SDV 2 mL 4 MG IVP (03:38)
--- NOTE | 2020-11-03 03:44 | PC.NURSE ---
Patient continues to complain of chest pain at this time however he continues to refuse to take the sublingual nitroglcerin.
[2020-11-03] MEDS: pantoprazole DR 40 mg Tablet PO (09:15)
[2020-11-03] MEDS: tamsulosin 0.4 mg Capsule PO (09:15)
[2020-11-03] MEDS: amlodipine 10 mg Tablet PO (09:15)
[2020-11-03] MEDS: ALPRAZolam 0.5 mg Tablet PO (09:15)
[2020-11-03] MEDS: ipratropium-albuterol 3 mL Neb INHALATION (10:01)
[2020-11-03 10:09] LABS: Chol HDL Ratio 5.87 mg/dL (1.0-5.00); Cholesterol 229 mg/dL (0-200); HDL Cholesterol 39 mg/dL (60-100); LDL Cholesterol Calculated 152 mg/dL (50-129); Triglycerides 191 mg/dL (0-150); VLDL Cholestrol Calculation 38 mg/dL (0-30)
[2020-11-03 10:23] LABS: Amphetamines Screen Urine Negative (Negative); Barbiturates Screen Urine Negative (Negative); Benzodiazepines Screen Urine Negative (Negative); Cocaine Screen Urine Negative (Negative); Opiate Screen Urine Negative (Negative); PCP Screen Urine Negative (Negative); THC Screen Urine Positive (Negative)
[2020-11-03 10:48] LABS: Estmated Average Glucose 103; Hemoglobin A1C 5.2 % (4.0-6.0)
[2020-11-03 10:55] LABS: Troponin T (5th) Once 6 ng/L (0-15)
[2020-11-03] MEDS: metoprolol tartrate 25 mg Tablet PO (11:29)
[2020-11-03] MEDS: aspirin 81 mg EC Tablet PO (11:29)
[2020-11-03] MEDS: topiramate 25 mg Tablet PO (11:29)
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
--- NOTE | 2020-11-03 14:08 | PC.NURSE ---
discharge instructions given and explained.pt verb understanding of instructions.discharged via w/c to exit.medicaid transport to drive pt home.
--- NOTE | 2020-11-04 16:08 | PC.RESP ---
Pulmonary Rehab information sent to patient.
== END 2020-11-03 14:11 | disposition home or self-care (01) ==
LOC: ER 23:48 → CSU 11-03 00:45
PROVIDERS: Admitting Provider Internal Medicine; Emergency Provider Family Medicine; PCP Family Medicine; Visit Provider Student in an Organized Health Care Education/Training Program
DX: R07.89 Other chest pain (principal); F41.9 Anxiety disorder, unspecified; F15.11 Other stimulant abuse, in remission; F12.21 Cannabis dependence, in remission; F19.21 Other psychoactive substance dependence, in remission; J44.9 Chronic obstructive pulmonary disease, unspecified; G47.33 Obstructive sleep apnea (adult) (pediatric); M19.90 Unspecified osteoarthritis, unspecified site; Z85.01 Personal history of malignant neoplasm of esophagus; I10 Essential (primary) hypertension; Z85.048 Personal history of other malignant neoplasm of rectum, rectosigmoid junction, and anus; Z85.828 Personal history of other malignant neoplasm of skin; N40.0 Benign prostatic hyperplasia without lower urinary tract symptoms; K21.9 Gastro-esophageal reflux disease without esophagitis
CPT/HCPCS: 12345; 36415; 71045; 80053; 80061; 80306; 81003; 83036; 83880; 84484; 85025; 85378; 93005; 93306; 94640; 96372; 96374; 99283; 99285; G0378; J1650; J2405

== ENCOUNTER 2020-11-12 14:25 | Emergency (ER) | payer MEDICAID, SELFPAY ==
[2020-11-12 14:38] VITALS: BP 183/97; PULSE 85; RESP 18; TEMP 37; O2SAT 97; BMI 32.8
[2020-11-12 15:05] VITALS: BP 162/110; PULSE 84; O2SAT 99
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
--- NOTE | 2020-11-12 15:17 | XRR_ITS ---
PROCEDURE INFORMATION: Exam: XR Left Shoulder Exam date and time: 11/12/2020 3:28 PM Age: 50 years old Clinical indication: Pain; Shoulder; Left TECHNIQUE: Imaging protocol: XR Left shoulder. Views: 2 or more views. COMPARISON: No relevant prior studies available. FINDINGS: Bones/joints: No fractures. Unremarkable joint alignment. Mild osseous spurring across the acromioclavicular articulation. No aggressive bone lesion. Soft tissues: Normal. XR/XR shoulder LT min 2V* [id number] IMPRESSION: Negative for acute left shoulder abnormality.
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
--- NOTE | 2020-11-12 15:26 | PC.PHAR ---
PT STATES HE HAS HOME HEALTH WITH [facility]. I CALLED THEM AND THEY STATED THAT THEY DO NOT HAVE A CURRENT MEDICATION LIST. THE PT STATE HE DOES TAKE ALL THESE MEDICATIONS, BUT ISN'T SURE WHETHER HE TAKES THEM IN THE MORNING OR EVENING. I AM GOING BY HIS MEDICATION HISTORY AND PHARMACY LIST.
[2020-11-12 15:44] LABS: Add Urine Microscopic? NO
[2020-11-12 15:50] LABS: Basophils # 0.1 10^3/uL (0.0-0.1); Basophils % 0.8 %; Eosinophils # 0.2 10^3/uL (0.0-0.8); Eosinophils % 2.6 %; Hematocrit 40.5 % (42.0-52.0); Hemoglobin 13.8 g/dL (11.7-16.6); Lymphocytes % 27.2 %; Mean Corpuscular HGB Conc 34.1 g/dL (30.0-36.0); Mean Corpuscular Hemoglobin 29.5 pg (28.0-34.0); Mean Corpuscular Volume 86.5 fL (80-94); Mean Platelet Volume 11.1 fL (7.4-10.4); Monocytes # 0.6 10^3/uL (0.2-0.9); Monocytes % 7.5 %; Neutrophils # 4.51 10^3/uL (1.8-7.7); Neutrophils % 61.5 %; Nucleated Red Blood Cells % 0 %; Platelet Count 262 10^3/cmm (130-400); Red Blood Count 4.68 10^6/uL (4.1-5.3); Red Cell Distribution Width 12.8 % (12.1-15.1); White Blood Count 7.3 10^3/uL (4.0-10.0)
[2020-11-12 16:03] VITALS: BP 146/98; PULSE 81; RESP 14; O2SAT 98
[2020-11-12 16:08] LABS: Bilirubin Urine Neg (Negative); Blood Urine Neg (Negative); Glucose Urine UA Norm (Normal); Ketones Urine Negative (Negative); Leukocyte Esterase Urine Negative (Negative); Nitrate Urine Negative (Negative); Protein Urine Neg (Negative); Specific Gravity, Urine 1.005 (1.005-1.030); Urine Appearance Clear (CLEAR); Urine Color Yellow (Yellow); Urobilinogen Urine Norm (Negative); pH Urine 6.5 (5-7)
[2020-11-12 16:19] LABS: Anion Gap 12.8 (5-19); Blood Urea Nitrogen 12 mg/dL (6-20); Calcium 9.5 mg/dL (8.5-10.5); Carbon Dioxide 25 mmol/L (22-29); Chloride 108 mmol/L (98-107); Glomerular Filtration Rate 142.6 mL/min (90-130); Glucose 90 mg/dL (65-115); Osmolality Calculated 293 mOsm/kg (285-295); Potassium 3.8 mmol/L (3.5-5.1); Sodium 142 mmol/L (136-145)
== END 2020-11-12 16:04 | disposition home or self-care (01) ==
PROVIDERS: Emergency Provider Family Medicine; PCP Family Medicine
DX: S06.0X9A Concussion with loss of consciousness of unspecified duration, initial encounter (principal); Y04.8XXA Assault by other bodily force, initial encounter; J44.9 Chronic obstructive pulmonary disease, unspecified; Z85.01 Personal history of malignant neoplasm of esophagus; I10 Essential (primary) hypertension; Z85.048 Personal history of other malignant neoplasm of rectum, rectosigmoid junction, and anus
CPT/HCPCS: 12345; 70450; 72125; 73030; 80048; 81003; 85025; 99281; 99283

== ENCOUNTER 2021-09-22 20:00 | Outpatient (CLI) | payer MEDICAID, SELFPAY | END 2021-09-22 20:01 | disposition home or self-care (01) | LOC: SLEEP 09-23 06:33 | PROVIDERS: PCP Family Medicine; Visit Provider Family Medicine | DX: G47.39 Other sleep apnea (principal) | CPT/HCPCS: 95811 ==

== ENCOUNTER 2021-10-07 16:39 | Emergency (ER) | payer MEDICAID, SELFPAY ==
[2021-10-07 16:47] VITALS: BP 156/116; PULSE 60; RESP 16; TEMP 36.7; O2SAT 97
--- NOTE | 2021-10-07 16:53 | XRR_ITS ---
PROCEDURE INFORMATION: Exam: XR Right Hand Exam date and time: 10/07/2021 4:53 PM Age: 51 years old Clinical indication: Pain and injury or trauma; Other: Metal beam fell on hand; Blunt trauma (contusions or hematomas); Injury details: Reports metal beam falling on right hand 4-5th digits unable to move and hand swelling; Additional info: Pain, trauma TECHNIQUE: Imaging protocol: XR Right hand. Views: 3 or more views. COMPARISON: No relevant prior studies available. FINDINGS: Bones/joints: There is minimally displaced oblique fracture of the distal right 5th metacarpal. Soft tissues: Soft tissue swelling. XR/XR hand RT min 3V* [id number] IMPRESSION: Fracture distal right 5th metacarpal.
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
[2021-10-07] MEDS: ondansetron 4 MG Tablet PO (18:17)
[2021-10-07] MEDS: HYDROcodone-acetaminophen 7.5-325 mg Tablet 1 TAB PO (18:17)
[2021-10-07 18:43] VITALS: PULSE 77; RESP 16; O2SAT 97
--- NOTE | 2021-10-08 09:33 | DCPLANNER ---
telemarketing manager had message to schedule a follow up appointment for patient with ortho. telemarketing manager called the ortho clinic, spoke with [facility], gave clinic patients information. telemarketing manager was told that patients information would be printed and reviewed. Clinic will call patient with appointment information.
--- NOTE | 2021-10-16 09:04 | DCPLANNER ---
Patient had a follow up appointment scheduled for 10.09.21 with Orlin BAUTISTA at ortho - patient did attend appointment.
== END 2021-10-07 18:44 | disposition home or self-care (01) ==
PROVIDERS: Emergency Provider Physician Assistant; PCP Family Medicine
DX: S62.396A Other fracture of fifth metacarpal bone, right hand, initial encounter for closed fracture (principal); J44.9 Chronic obstructive pulmonary disease, unspecified; I10 Essential (primary) hypertension; Z85.01 Personal history of malignant neoplasm of esophagus; Z85.048 Personal history of other malignant neoplasm of rectum, rectosigmoid junction, and anus; Z85.828 Personal history of other malignant neoplasm of skin; Z87.891 Personal history of nicotine dependence; W22.8XXA Striking against or struck by other objects, initial encounter
CPT/HCPCS: 29125; 73130; 99283; Q0162

== ENCOUNTER → 2021-10-10 10:44 | Outpatient (BNVA) | payer MEDICAID, SELFPAY | PROVIDERS: PCP Family Medicine; Visit Provider Family Medicine | DX: Z01.812 Encounter for preprocedural laboratory examination (principal); Z20.822 Contact with and (suspected) exposure to COVID-19 | CPT/HCPCS: 87635 ==

== ENCOUNTER 2021-10-15 14:30 | Outpatient (CLI) | payer MEDICAID, SELFPAY ==
--- NOTE | 2021-10-15 14:56 | PFTS_ITS ---
Date of Study:10/15/21 Date of Dictation: MECHANICS: Forced vital capacity (FVC) is reduced. Forced expiratory volume in one second (FEV1) is reduced. FEV1/FVC is reduced. FLOW VOLUME LOOP: Reduced lateral lung volumes. LUNG VOLUMES: Not measured DIFFUSING CAPACITY FOR CARBON MONOXIDE: Not measured. INTERPRETATION: The postbronchodilator spirometry is consistent with moderate airflow obstruction. There is a significant postbronchodilator response. A component of restriction cannot be ruled out in the absence of lung volume assessment. Gastric change was not measured. MTDD
== END 2021-10-15 14:31 | disposition home or self-care (01) ==
LOC: RT 14:32
PROVIDERS: PCP Family Medicine; Visit Provider Family Medicine
DX: J44.9 Chronic obstructive pulmonary disease, unspecified (principal); J45.909 Unspecified asthma, uncomplicated
CPT/HCPCS: 94060; J7611

== ENCOUNTER → 2021-10-21 14:31 | Outpatient (BNVA) | payer MEDICAID, SELFPAY | PROVIDERS: PCP Family Medicine; Visit Provider Physician Assistant | DX: S62.306A Unspecified fracture of fifth metacarpal bone, right hand, initial encounter for closed fracture (principal); W19.XXXA Unspecified fall, initial encounter; M25.522 Pain in left elbow; M19.022 Primary osteoarthritis, left elbow | CPT/HCPCS: 73080; 73120 ==

== ENCOUNTER 2021-10-24 13:38 | Outpatient (CLI) | payer MEDICAID, SELFPAY ==
--- NOTE | 2021-10-24 13:49 | USCV_ITS ---
Paco Escobedo Age: 51 Gender: M : 1970 Exam Date: 10/24/2021 13:59 Ordering Phys: Cecil Flood MD Technologist: KORIN Exam Location: [facility] [place] Indication: Trauma / RT Leg pain HISTORY: Trauma/ RT Leg pain PROCEDURES: Venous duplex imaging was performed in only the right lower extremity. The following venous structures were evaluated: common femoral vein, profunda vein, proximal portion of the greater saphenous vein, superficial femoral vein, and the popliteal vein. In addition, the posterior tibial and peroneal trunk were evaluated. Serial compression, augmentation maneuvers, and spectral Doppler flow evaluation were performed. FINDINGS: Normal 2-D Doppler and augmentation and compressibility throughout the lower extremity venous structures. Additional imaging through the proximal calf veins also reveals no thrombus. Limited evaluation of the greater saphenous vein is patent with no thrombus. CONCLUSIONS No DVT right lower extremity. Dr. Cindy Coates DO (Electronically Signed) Final Date: 24 October 2021 15:48 S
--- NOTE | 2021-10-24 14:02 | CT_ITS ---
WS: [id number] CT HEAD NONCONTRAST HISTORY: HEADACHE TECHNIQUE: Contiguous axial imaging performed through the brain in 2.5 mm imaging. Bone and soft tiss ue windows. Sagittal and coronal reformats reviewed. All CT scans at [facility] use at least one of these dose optimization techniques: automated exposure control; mA and/or kV adjustment per pa tient size (includes targeted exams where dose is matched to clinical indication); or iterative recon struction. DLP: 823.79 mGy.cm COMPARISON: 11/12/2020 No acute intracranial hemorrhage, midline shift or mass effect. No atrophy or prior infarcts or herniation. Ventricles: Normal size with no hydrocephalus. No inferior displacement of cerebellar tonsils. There is asymmetric soft tissue in the RIGHT supracli noid region. The distal RIGHT intracranial ICA is a slightly more bulbous as compared to the LEFT. Th is area should be further evaluated for possible aneurysm. Paranasal sinuses: There is extensive mucoperiosteal thickening throughout the sinus cavities, greate st involving the ethmoid and maxillary sinuses. Mastoid air cells: Well pneumatized. Calvarium and scalp: Skull is intact with no soft tissue edema or swelling. Small scalp lipoma over t he RIGHT frontal bone. CT/CT head wo con* [id number] IMPRESSION: 1. No acute intracranial hemorrhage or edema. 2. Asymmetric soft tissue in the RIGHT supraclinoid region with a bulbous tip of the distal RIGHT ICA. Ectatic artery versus aneurysm. Recommend follow-up CT angiogram or MR angiogram of the cerebral arteries. 3. Extensive paranasal sinus disease.
== END 2021-10-24 13:39 | disposition home or self-care (01) ==
PROVIDERS: Visit Provider Family Medicine
DX: M79.604 Pain in right leg (principal); R51.9 Headache, unspecified
CPT/HCPCS: 70450; 93971

== ENCOUNTER → 2021-11-11 14:25 | Outpatient (BNVA) | payer MEDICAID, SELFPAY | PROVIDERS: PCP Family Medicine; Visit Provider Physician Assistant | DX: S62.396D Other fracture of fifth metacarpal bone, right hand, subsequent encounter for fracture with routine healing (principal); X58.XXXD Exposure to other specified factors, subsequent encounter | CPT/HCPCS: 73130 ==

== ENCOUNTER 2021-12-10 15:46 | Outpatient (CLI) | payer MEDICAID, SELFPAY ==
--- NOTE | 2021-12-10 15:52 | US_ITS ---
NOTE: Report was unsigned for reason: Ordering provider was edited. Original Signature date and time was: 12/10/21 @ 4691 WS: [id number] SCROTAL ULTRASOUND EXAMINATION CLINICAL INFORMATION: TESTICULAR PAIN, UNSPECIFIED COMPARISON: None. FINDINGS: TESTES Normal in size and echotexture, without focal lesion. Color Doppler: Normal color Doppler flow pattern. Right testes size: 4.3 cm x 3.4 cm x 2.6 cm. Left testes size: 4.2 cm x 3.4 cm x 2.3 cm. EPIDIDYMIDES Enlarged RIGHT epididymis measuring measuring 4.1 x 1.1 x 0.6 cm although normal vascularity. Color Doppler: Normal color Doppler flow pattern. Right epididymis size: 4.1 cm x 0.6 cm x 1.1 cm. Left epididymitis size: 2.8 cm x 0.7 cm x 0.7 cm. HYDROCELE Bilateral hydroceles. VARICOCELE None. OTHER FINDINGS Prominent lymph nodes in both groins likely reactive. [facility] US/US scrotum [id number] IMPRESSION: 1. Normal testicular echotexture and vascularity to both testicles. 2. Small bilateral hydroceles. 3. Enlarged RIGHT epididymis although no increased vascularity. Recommend atilio elation for epididymitis. 4. Prominent lymph nodes in both groins with normal persistent fatty abimbola, non specific but likely reactive.
== END 2021-12-10 15:47 | disposition home or self-care (01) ==
LOC: RAD 15:48
PROVIDERS: PCP Family Medicine; Visit Provider Social Worker Clinical
DX: N50.819 Testicular pain, unspecified (principal); N43.3 Hydrocele, unspecified; N45.1 Epididymitis
CPT/HCPCS: 76870

== ENCOUNTER 2021-12-18 08:40 | Outpatient (CLI) | payer MEDICAID, SELFPAY ==
--- NOTE | 2021-12-18 09:01 | US_ITS ---
WS: [id number] ABDOMINAL ULTRASOUND REASON FOR EXAM: abd pain TECHNIQUE: Grayscale and Doppler ultrasound examination of the abdomen. FINDINGS: Pancreas: Not well seen. No abnormality identified. Abdominal aorta and IVC: Normal Liver: Liver measures 16.4 cm in length. Significantly increased echogenicity. No focal lesion. Gallbladder: Surgically absent HORSESHOE KIDNEY: Left kidney: Left kidney measures 10.4 cm x 5.5 cm x 6.2 cm. No mass, calculus, or hydronephrosis. Right kidney: Right kidney measures 12.1 cm x 6.4 cm x 5.5 cm. No mass, calculus, or hydronephrosis. Spleen: Spleen measures spleen is 11.7 cm in maximum length. No focal lesion. No ascites. US/US abdomen complete* [id number] IMPRESSION: No significant abnormality.
--- NOTE | 2021-12-18 09:02 | USCV_ITS ---
Paco Escobedo Age: 51 Gender: M : 1970 Exam Date: 12/18/2021 09:10 Ordering Phys: LAKEISHA SMITH Technologist: Kelly eRn [place] [facility] [place]: ESSENTIAL HTN BP: 170 / 85 HR: 61 Rhythm: Sinus Technical Quality: Adequate MEASUREMENTS (Male / Female) Normal Values 2D ECHO LV Diastolic Diameter PLAX 4.8 cm 4.2 - 5.9 / 3.9 - 5.3 cm LV Systolic Diameter PLAX 3.5 cm LV Chamber Size 4.0 cm IVS Diastolic Thickness 1.2 cm 0.6 - 1.0 / 0.6 - 0.9 cm IVS Systolic Thickness 1.9 cm LVPW Diastolic Thickness 1.1 cm 0.6 - 1.0 / 0.6 - 0.9 cm LVPW Systolic Thickness 1.9 cm RV Chamber Size 2.8 cm LVOT Diameter 2.0 cm LV Ejection Fraction 2D Teich 54.4 % LV Ejection Fraction MOD 2C 40.1 % LV Ejection Fraction 2C AL 39.9 % LA Diameter 3.1 cm LA Width 3.3 cm LA Height 4.0 cm RA Width 4.0 cm RA Height 3.6 cm Aorta at Sinotubular Diameter 2.8 cm M-MODE Aortic Annulus Diameter 4.0 cm LA Ao Ratio MM 0.9 MV E Point Septal Separation 0.6 cm DOPPLER AV Peak Velocity 130.0 cm/s LVOT Peak Velocity 82.0 cm/s AV Area Cont Eq vti 2.0 cm squared AV Area Cont Eq pk 2.0 cm squared MV Area PHT 3.1 cm squared Mitral E to A Ratio 1.2 MV E' Velocity 45.5 cm/s Mitral E to MV E' Ratio 9.6 Mitral E to LV E' Lateral Ratio 8.9 Mitral E to LV E' Septal Ratio 10.4 TR Peak Velocity 227.7 cm/s TR Peak Gradient 20.7 mmHg TR Mean Velocity 190.2 cm/s TR Mean Gradient 16.8 mmHg TR Velocity Time Integral 76.3 cm TV Peak E Velocity 70.0 cm/s Right Atrial Pressure 3.0 mmHg Pulmonary Artery Systolic Pressu 23.7 mmHg PV Peak Velocity 53.0 cm/s RV Acceleration Time 0.1 s RV Ejection Time 0.4 s RV AcT/ET 0.4 FINDINGS Left Ventricle Normal left ventricular size. LV systolic function is normal with EF of 55-60%. No regional wall motion abnormalities. Diastolic function is normal. Right Ventricle The right ventricle is normal in size and function. Right Atrium The right atrium is normal in size. Left Atrium The left atrium is normal in size. Mitral Valve Structurally normal mitral valve without significant stenosis or prolapse. There is no mitral regurgitation. Aortic Valve Structurally normal aortic valve without significant sclerosis or stenosis. There is no aortic regurgitation. Tricuspid Valve Structurally normal tricuspid valve without significant stenosis or regurgitation. Pulmonary artery systolic pressure is normal. Pulmonic Valve Structurally normal pulmonic valve without significant stenosis. There is no pulmonic regurgitation. Pericardium Normal pericardium without effusion. Aorta Normal ascending aorta dimension. CONCLUSIONS LV systolic function is normal with EF of 55-60% Diastolic function is normal No significant valvular heart disease Compared to prior echocardiogram from 11/03/2020, no significant changes are seen Darwin Hand MD (Electronically Signed) Final Date: 30 December 2021 12:11 S
--- NOTE | 2021-12-18 09:02 | US_ITS ---
WS: [id number] PELVIC ULTRASOUND REASON FOR VISIT: PELVIC PAIN TECHNIQUE: Grayscale and Doppler transabdominal ultrasound of the pelvis. FINDINGS: The bladder appears to have a somewhat thickened wall. No focal lesion. Hutch diverticulum demonstrat ed on CT scan of 02/14/2020 not demonstrated on the current ultrasound. No mass or adenopathy. The prostate gland is not significantly enlarged. 2.94 x 3.23 x 2.62 cm. This approximates the prosta te size on the previous CT scan of 02/14/2020. US/US pelvic complete* [id number] IMPRESSION: No significant focal abnormality identified.
== END 2021-12-18 08:41 | disposition home or self-care (01) ==
PROVIDERS: PCP Family Medicine; Visit Provider Emergency Medicine
DX: I10 Essential (primary) hypertension (principal); R10.9 Unspecified abdominal pain; R10.2 Pelvic and perineal pain
CPT/HCPCS: 76700; 76856; 93306

== ENCOUNTER 2021-12-22 13:41 | Outpatient (CLI) | payer MEDICAID, SELFPAY ==
[2021-12-22] MEDS: iohexol 300 mg/mL 50 mL Btl PO (13:57)
[2021-12-22] MEDS: iohexol 300 mg/mL 100 mL Btl IV (15:27)
--- NOTE | 2021-12-22 15:30 | CT_ITS ---
WS: [id number] CT ABDOMEN AND PELVIS WITH CONTRAST HISTORY: R10.9 - Unspecified abdominal pain TECHNIQUE: Imaging performed of the abdomen and pelvis with IV contrast. Single phase imaging of the abdomen. Coronal and sagittal reformats are submitted. All CT scans at [facility] use at [address] one of these dose optimization techniques: automated exposure control; mA and/or kV adjustment per patient size (includes targeted exams where dose is matched to clinical indication); or iterative re construction. IV CONTRAST: Omnipaque 300; 95 mL IV. Oral contrast: Yes. DLP: 1429.73 mGy.cm COMPARISON: 02/14/2020 Lower thorax: Limited evaluation due to motion and breathing artifact. Hyperinflated lungs from emphy sema. Heart is normal size. Moderate-sized hiatal hernia. Liver/biliary system: Mildly enlarged liver. No mass. Normal duct dilatation. Normal portal vein. Gallbladder: Status post cholecystectomy. Pancreas: Normal size pancreas and pancreatic duct. No adjacent inflammation. Spleen: Normal size spleen. No mass or infarct. Adrenal glands: Normal. Kidneys: Horseshoe kidneys. Anterior rotated kidneys which communicated anterior to the aorta. There is no obstruction of either kidney. There is a tiny cortical cyst in the upper pole RIGHT kidney. Nei ther ureter is dilated. Aorta: Normal. Lymphadenopathy: None. Free fluid: None. GI tract: Marked distention of the stomach with food and oral contrast. No small bowel obstruction. T here is extensive moderate constipation. The appendix is normal. No GI tract obstruction. Several div erticula are noted in the sigmoid colon. No acute diverticulitis. Abdominal wall: Status post ventral abdominal hernia repair with mesh. No recurrent hernia is identif ied. Pelvis: Well-distended urinary bladder. There is a small bladder diverticulum extending from the post erior LEFT urinary bladder closely associated with the ureteral orifice. Bones: Unremarkable. CT/CT abdomen pelvis w con* [id number] IMPRESSION: 1. Moderate-sized hiatal hernia. 2. Horseshoe kidneys. 3. Moderate diffuse fecal retention, greatest involving the RIGHT colon with t ortuosity throughout the colon. There are a few scattered diverticula with no a cute diverticulitis. 4. Posterior and LEFT lateral urinary bladder diverticulum. 5. Prior cholecystectomy.
== END 2021-12-22 13:42 | disposition home or self-care (01) ==
LOC: RAD 13:42
PROVIDERS: PCP Family Medicine; Visit Provider Surgery
DX: K44.9 Diaphragmatic hernia without obstruction or gangrene (principal); Q63.1 Lobulated, fused and horseshoe kidney; Z90.49 Acquired absence of other specified parts of digestive tract; N32.3 Diverticulum of bladder
CPT/HCPCS: 74177; 87635

== ENCOUNTER 2021-12-25 08:32 | Day surgery (SDC) | payer MEDICAID, SELFPAY ==
[2021-12-23 15:14] VITALS: BMI 28.3
--- NOTE | 2021-12-25 08:41 | P.ANESASSM_ITS ---
Pre-Anesthetic Assessment Height/Weight: Height 1.75 m Weight 87.09 kg Operation Date: 12/25/21 09:45 Proposed Procedures p Colonoscopy [id number]/k92.0/k62.5(Not Applicable) - Juan Farrar MD s EGD(Not Applicable) - Juan Farrar MD Familial anesthetic complications: None Was Beta Ze taken within 24 hours: Yes Was Clonidine taken within 24 hours: Yes Last intake: > 8hrs Social No alcohol and No tobacco Exam alert, oriented x 3, clear to auscultation bilaterally and regular rate & rhythm Airway Mallampati: Class IV Dentition: other (no teeth) Comments: Comments: large tongue, sánchez Pulmonary Asthma, Chronic Obstructive Pulmonary Disease and Sleep Apnea CV/HEM Hypertension and Myocardial Infarction None reported horseshoe kidney Hepatic None reported GI Gastroesophageal Reflux Disease Metabolic None reported Musc/skel Lower Back Pain, Osteoarthritis/DJD and Rheumatoid Arthritis osteoporosis Neuropsych Seizure (historical - last one years ago) Anesthetic Plan ASA status: 3 Anesthesia: MAC Risk of > 500 ml blood loss (7ml/kg in children): No Medications/Allergies Home Medications Medication Instructions Recorded Confirmed Last Taken Type albuterol sulfate 90 mcg/actuation 2 puff INHALATION TID PRN 02/14/20 12/23/21 11/12/20 History aerosol inhaler budesonide-formoterol HFA 80 2 puff INHALATION BID 02/14/20 12/23/21 11/11/20 History mcg-4.5 mcg/actuation aerosol inhaler (Symbicort) ipratropium 0.5 mg-albuterol 3 mg 3 ml INHALATION TID PRN 02/14/20 12/23/21 02/13/20 History (2.5 mg base)/3 mL nebulization soln ondansetron HCl 4 mg tablet 4 mg PO Q6H PRN #20 tab 02/14/20 12/23/21 Unknown Rx (Zofran) promethazine 25 mg tablet 25 mg PO Q6H PRN 02/14/20 12/23/21 Unknown History tamsulosin 0.4 mg capsule (Flomax) 0.4 mg PO DAILY #90 cap 11/28/20 12/23/21 Unknown Rx esomeprazole magnesium 40 mg 40 mg PO DAILY #90 cap 12/02/20 12/23/21 Unknown Rx capsule,delayed release dicyclomine 10 mg capsule 10 mg PO QID #120 cap 12/06/20 12/23/21 Unknown Rx docusate sodium 100 mg capsule 100 mg PO BID #60 cap 12/06/20 12/23/21 Unknown Rx (DOK) metoprolol succinate 25 mg 25 mg PO DAILY #30 tab 12/06/20 12/23/21 Unknown Rx tablet,extended release 24 hr topiramate 25 mg tablet (Topamax) 25 mg PO BID #60 tab 12/06/20 12/23/21 Unknown Rx Allergies Allergy/AdvReac Type Severity Reaction Status Date / Time tramadol Allergy Intermediate Unknown Verified 12/22/21 08:21 Penicillins Allergy Unknown Unknown Verified 12/22/21 08:21 Quinolones Allergy Unknown Unknown Verified 12/22/21 08:21 acetaminophen [From Tylenol] Allergy Rash Verified 12/22/21 08:21 [facility] Anesthesia Medical History (Updated 12/22/21 @ 08:23 by Pool Jean Baptiste) Anxiety COPD (chronic obstructive pulmonary disease) Degenerative disc disease Esophageal cancer Hypertension Lymphadenopathy Obstructive sleep apnea Rectal cancer Rheumatoid arthritis Skin cancer Surgical History H/O abdominal surgery H/O colonoscopy H/O sinus surgery History of colon surgery History of esophageal surgery History of esophagogastroduodenoscopy (EGD) Family History Unknown No problems noted. Family/Other Cancer Family history of breast cancer, colon cancer especially maternal side Social History Smoking and tobacco status: never smoked Alcohol intake: former Former alcohol use details: 15 years Data Anesthesia Cardiac Studies: Echocardiogram Ultrasound 11/03/20
[2021-12-25 09:05] VITALS: BP 142/95; PULSE 81; RESP 16; TEMP 36.6; O2SAT 98
[2021-12-25] MEDS: sodium chloride 0.9% 1,000 ML 30 ML IV (09:19)
--- NOTE | 2021-12-25 09:19 | W.PM.OPSUD ---
Surgery/Procedure H&P Update DATE OF PROCEDURE: December 25, 2021 DATE H&P PERFORMED: 12/03/21 H&P UPDATE INFORMATION: I have reviewed H&P completed within last 30 days and No changes to prior documentation CHANGES TO PREVIOUS DOCUMENTATION: CT scan of the abdomen pelvis was done that showed: 1.? Moderate-sized hiatal hernia. 2.? Horseshoe kidneys. 3.? Moderate diffuse fecal retention, greatest involving the RIGHT colon with tortuosity throughout the colon. There are a few scattered diverticula with no acute diverticulitis. 4.? Posterior and LEFT lateral urinary bladder diverticulum. 5.? Prior cholecystectomy. ? PREOP DIAGNOSIS: Bleeding per rectum PRIMARY INDICATION FOR PROCEDURE: The same Patient understands that I may abort the colonoscopy part particularly if his colon anatomy is challenging for patient's safety and a complementary barium enema may be obtained. This discussion took place in the presence of caring nursing staff Dominguez and patient's son Flo. Patient agreed to proceed accordingly. PLANNED PROCEDURE: Operation Date: 12/25/21 09:45 Proposed Procedures p Colonoscopy [id number]/k92.0/k62.5(Not Applicable) - Juan Farrar MD s EGD(Not Applicable) - Juan Farrar MD
[2021-12-25] MEDS: ondansetron 2 mg/ML SDV 2 mL 4 MG IVP (09:21)
[2021-12-25 10:58] VITALS: BP 158/100; PULSE 66; RESP 16; TEMP 36.5; O2SAT 97
[2021-12-25 11:18] VITALS: BP 167/80; PULSE 68; RESP 16; TEMP 36.6; O2SAT 99
--- NOTE | 2021-12-25 11:38 | PC.NURSE ---
PATIENT REPORTS HE HAS PAIN, THATS A 10, NOT FROM THIS PROCEDURE, BUT FROM AN INJURY IN THE [place]. REQUESTING PAIN MEDICATION. DR. AGUILA NOTIFIED. PHYSICIAN SPOKE WITH PATIENT. SEE ORDERS
[2021-12-25] MEDS: HYDROcodone-acetaminophen 5-325 mg Tablet 1 TAB PO (11:52)
== END 2021-12-25 12:09 | disposition home or self-care (01) ==
PROVIDERS: PCP Family Medicine; Visit Provider Surgery
PROC: 0DJD8ZZ Inspection of Lower Intestinal Tract, Via Natural or Artificial Opening Endoscopic (ICD-10-PCS; CPT 45378; principal; 2021-12-25 09:45)
PROC: 0DJ08ZZ Inspection of Upper Intestinal Tract, Via Natural or Artificial Opening Endoscopic (ICD-10-PCS; CPT 43235; 2021-12-25 09:45)
DX: K62.5 Hemorrhage of anus and rectum (principal); K92.0 Hematemesis; K44.9 Diaphragmatic hernia without obstruction or gangrene; Q63.1 Lobulated, fused and horseshoe kidney; K59.00 Constipation, unspecified; D12.5 Benign neoplasm of sigmoid colon; K57.30 Diverticulosis of large intestine without perforation or abscess without bleeding; N32.3 Diverticulum of bladder; Z90.49 Acquired absence of other specified parts of digestive tract; J44.9 Chronic obstructive pulmonary disease, unspecified; G47.30 Sleep apnea, unspecified; I10 Essential (primary) hypertension; I25.2 Old myocardial infarction; M06.9 Rheumatoid arthritis, unspecified; M19.90 Unspecified osteoarthritis, unspecified site; F41.9 Anxiety disorder, unspecified; G47.33 Obstructive sleep apnea (adult) (pediatric)
CPT/HCPCS: 43239; 45385; 88305; 96374; J2405; J2704; J7030

== ENCOUNTER → 2021-12-30 09:39 | Outpatient (BNVA) | payer MEDICAID, SELFPAY | PROVIDERS: PCP Family Medicine; Visit Provider Urology | DX: N50.819 Testicular pain, unspecified (principal); N42.81 Prostatodynia syndrome; N40.1 Benign prostatic hyperplasia with lower urinary tract symptoms | CPT/HCPCS: 81003 ==

== ENCOUNTER → 2022-01-07 09:12 | Outpatient (BNVA) | payer MEDICAID, SELFPAY | PROVIDERS: PCP Family Medicine; Visit Provider Surgery | DX: K44.9 Diaphragmatic hernia without obstruction or gangrene (principal); K57.31 Diverticulosis of large intestine without perforation or abscess with bleeding; K63.5 Polyp of colon; K29.70 Gastritis, unspecified, without bleeding | CPT/HCPCS: 99213 ==

== ENCOUNTER 2022-01-17 23:50 | Emergency (ER) | payer MEDICAID, SELFPAY ==
[2022-01-17 23:53] VITALS: BP 183/111; PULSE 84; RESP 18; TEMP 36.4; O2SAT 97; BMI 32.5
--- NOTE | 2022-01-17 23:57 | ECG_ITS ---
[facility] Test Date: 2022-01-18 Pat Name: Paco Escobedo Department: Room: Gender: Male Hand Lacer: : 1970 Requested By: Lori Galeana Order Number: [id number] Shawna MD: Aniyah Wagoner M.D. Measurements Intervals [place] Rate: 72 P: 53 SC: 132 QRS: -23 QRSD: 122 T: 28 QT: 420 QTc: 460 Interpretive Statements SINUS RHYTHM BORDERLINE LEFT AXIS DEVIATION [QRS AXIS < -20] RIGHT BUNDLE BRANCH BLOCK [120+ ms QRS DURATION, UPRIGHT V1, 40+ ms S IN I/aVL/V4/V5/V6] Compared to ECG 11/03/2020 04:14:05 Right bundle-branch block now present Incomplete right bundle-branch block no longer present Electronically Signed On 01-18-2022 16:11:05 CDT by Aniyah Wagoner M.D. [id number]
--- NOTE | 2022-01-17 23:57 | CTR_ITS ---
PROCEDURE INFORMATION: Exam: CT Head Without Contrast Exam date and time: 01/18/2022 12:27 AM Age: 51 years old Clinical indication: Altered mental status/memory loss; Confusion or disorientation; Patient HX: AMS - combative - non compliant TECHNIQUE: Imaging protocol: Computed tomography of the head without contrast. Radiation optimization: All CT scans at this facility use at least one of these dose optimization techniques: automated exposure control; mA and/or kV adjustment per patient size (includes targeted exams where dose is matched to clinical indication); or iterative reconstruction. COMPARISON: CT head wo con* [id number] 10/24/2021 2:34 PM RADIATION DOSE METRICS: Total DLP (mGy-cm): 855 FINDINGS: Brain: Normal. No hemorrhage. Unremarkable white matter. No mass effect. Cerebral ventricles: No ventriculomegaly. Paranasal sinuses: Status post bilateral medial wall maxillary antrectomies. Mucosal thickening is seen within the maxillary sinuses bilaterally and within the frontal sinuses bilaterally. Mastoid air cells: There is partial opacification of the mastoid sinuses on the left. Bones/joints: Unremarkable. No acute fracture. Soft tissues: There is a fat attenuation convexity seen in the soft tissues of the forehead on the right adjacent to the frontal bone compatible with a lipoma. This was present on 10/24/2021. CT/CT head wo con* [id number] IMPRESSION: There are no acute intracranial findings.
--- NOTE | 2022-01-17 23:57 | XRR_ITS ---
PROCEDURE INFORMATION: Exam: XR Chest Exam date and time: 01/18/2022 12:10 AM Age: 51 years old Clinical indication: Sternal or substernal pain; Additional info: Cp TECHNIQUE: Imaging protocol: XR of the chest. Views: 1 view. COMPARISON: CR XR chest 1V portable [id number] 11/02/2020 9:47 PM FINDINGS: Lungs: There is a background of emphysema and mild pulmonary fibrosis. Some linear opacities are seen superimposed over the left hemidiaphragm likely representing atelectasis. Pleural spaces: Unremarkable. No pleural effusion. No pneumothorax. Heart/Mediastinum: Unremarkable. No cardiomegaly. Bones/joints: Unremarkable. XR/XR chest 1V portable [id number] IMPRESSION: 1. Background emphysema and mild pulmonary fibrosis. 2. Linear opacities superimposed over the left hemidiaphragm likely represents atelectasis.
[2022-01-18] VITALS (11 sets, daily range): BP systolic 110–189; BP diastolic 64–132; PULSE 60–83; RESP 18–26; O2SAT 95–98
--- NOTE | 2022-01-18 00:17 | ED.C_ITS ---
HPI - Psych General: Chief Complaint: Psychiatric Symptoms Stated Complaint: Anxiety, Combative Time Seen by Provider: 01/17/22 23:51 Source: EMS Mode of arrival: EMS Limitations: altered mental status History of Present Illness: 51-year-old male who is here by EMS. EMS states that police were called to his residence for domestic dispute. He stated when police got there he complained of chest pain and fell to the force they called EMS EMS arrived and states when they try to get him in the EMS he became severely combative with them. They have had to give him a total of 450 mg of ketamine IM due to his combativeness. They state that he never said he is suicidal homicidal but he was just getting very angry. Patient is now sedated from the ketamine are not able to get any history from him at this time. Review of Systems General: Reports: ROS unobtainable due to mental status PFS ED PFSH: Medical History Anxiety COPD (chronic obstructive pulmonary disease) Degenerative disc disease Esophageal cancer Helicobacter pylori gastritis History of tumor Removed from Groin Hypertension Lymphadenopathy Obstructive sleep apnea Rectal cancer Rheumatoid arthritis Skin cancer Testicular pain Surgical History H/O abdominal surgery H/O colonoscopy H/O sinus surgery History of colon surgery History of esophageal surgery History of esophagogastroduodenoscopy (EGD) History of umbilical hernia repair Multi Family History Unknown No problems noted. Family/Other Cancer Family history of breast cancer, colon cancer especially maternal side Father CAD (coronary artery disease) Hyperlipidemia Hypertension Cancer prostate Mother Hypertension Social History Smoking and tobacco status: never smoked Alcohol intake: former Former alcohol use details: 15 years Marital status: Current occupational status: disabled History of recent travel: No Physical Exam Const: COMMON NORMALS: negative for patient oriented x3 HENMT: COMMON NORMALS: normocephalic and atraumatic HEAD & SCALP: normocephalic and atraumatic Eye: COMMON NORMALS: Equal, round and reactive pupils present and EOMs intact bilaterally PUPIL: Yes Equal, round and reactive pupils present Neck/C-Spine: COMMON NORMALS: full ROM and supple Chest: COMMONS NORMALS: normal inspection of the chest and normal palpation of entire chest wall Resp: COMMON NORMALS: normal respiratory effort, No retractions, No use of accessory muscles and clear to auscultation bilaterally AUSCULTATION: clear to auscultation bilaterally Cardio: COMMON NORMALS: regular rate, regular rhythm and No murmurs present (Cardio) RATE: regular rate RHYTHM: regular rhythm GI: COMMON NORMALS: Normal to inspection, nondistended, normoactive bowel sounds present, Soft to palpation, non-tender and no masses PALPATION: Yes Soft to palpation Extremity: COMMON NORMALS: normal to inspection and full ROM Neuro: COMMON NORMALS: moves all extremities and no focal motor deficits; negative for patient oriented x3 Psych: COMMON NORMALS: negative for mental status grossly normal Skin: COMMON NORMALS: no rashes or lesions noted and no wounds GENERAL SKIN EXAM: no rashes or lesions noted Course Vital Signs: Vital signs: Vital Signs Temperature 97.6 F 01/17/22 23:53 Pulse Rate 78 01/18/22 03:02 Respiratory Rate 18 01/18/22 03:02 Blood Pressure 159/98 01/18/22 03:02 Pulse Oximetry 96 01/18/22 03:02 MDM - Psych Medical Decision Making Patient presents with agitation he was given ketamine in route patient's been observed here he has been awake answering all my questions appropriately and O x4 he has no suicidal no homicidal thoughts he has no psychosis or hallucinations he is stable for discharge son is coming to get him. Lab Data : 01/18/22 00:45 01/18/22 00:45 Radiology Impressions Chest X-Ray 01/17/22 23:57 IMPRESSION: 1. Background emphysema and mild pulmonary fibrosis. 2. Linear opacities superimposed over the left hemidiaphragm likely represents atelectasis. Head CT 01/17/22 23:57 IMPRESSION: There are no acute intracranial findings. Laboratory Results WBC 12.2 10^3/uL (4.0-10.0) H 01/18/22 00:45 RBC 4.74 10^6/uL (4.1-5.3) 01/18/22 00:45 Hgb 14.2 g/dL (11.7-16.6) 01/18/22 00:45 Hct 41.7 % (42.0-52.0) L 01/18/22 00:45 MCV 88.0 fl (80-94) 01/18/22 00:45 MCH 30.0 pg (28.0-34.0) 01/18/22 00:45 MCHC 34.1 g/dL (30.0-36.0) 01/18/22 00:45 RDW 12.2 % (12.1-15.1) 01/18/22 00:45 Plt Count 218 10^3/cmm (130-400) 01/18/22 00:45 MPV 12.0 fL (7.4-10.4) H 01/18/22 00:45 Neut % (Auto) 70.4 % 01/18/22 00:45 Lymph % (Auto) 22.3 % 01/18/22 00:45 [place] % (Auto) 6.1 % 01/18/22 00:45 Eos % (Auto) 0.6 % 01/18/22 00:45 Baso % (Auto) 0.3 % 01/18/22 00:45 Neut # (Auto) 8.57 10^3/uL (1.8-7.7) H 01/18/22 00:45 Lymph # (Auto) 2.7 10^3/uL (0.8-4.8) 01/18/22 00:45 [place] # (Auto) 0.7 10^3/uL (0.2-0.9) 01/18/22 00:45 Eos # (Auto) 0.1 10^3/uL (0.0-0.8) 01/18/22 00:45 Baso # (Auto) 0.0 10^3/uL (0.0-0.1) 01/18/22 00:45 Nucleated RBC % (auto) 0 % 01/18/22 00:45 Nucleated RBCs # 0.0 /100WBC 01/18/22 00:45 Sodium 141 mmol/L (136-145) 01/18/22 00:45 Potassium 3.5 mmol/L (3.5-5.1) 01/18/22 00:45 Chloride 105 mmol/L (98-107) 01/18/22 00:45 Carbon Dioxide 24 mmol/L (22-29) 01/18/22 00:45 Anion Gap 15.5 (5-19) 01/18/22 00:45 BUN 10 mg/dL (6-20) 01/18/22 00:45 Creatinine 0.6 mg/dL (0.7-1.2) L 01/18/22 00:45 GFR Calculation 142.0 mL/min (90-130) H 01/18/22 00:45 Glucose 141 mg/dL (65-115) H 01/18/22 00:45 POC Glucose 124 mg/dL (70-110) H 01/18/22 00:42 Calculated Osmolality 293 mOsm/kg (285-295) 01/18/22 00:45 Calcium 8.1 mg/dL (8.5-10.5) L 01/18/22 00:45 Total Bilirubin 0.4 mg/dL (0.15-1.2) 01/18/22 00:45 AST 32 U/L (0-40) 01/18/22 00:45 ALT 30 U/L (0-41) 01/18/22 00:45 Alkaline Phosphatase 64 IU/L (40-130) 04 00:45 Troponin T Baseline 8 ng/L (0-15) 01/18/22 00:45 Total Protein 6.7 g/dL (6.6-8.7) 01/18/22 00:45 Albumin 4.7 g/dL (3.5-5.2) 01/18/22 00:45 Globulin 2.0 g/dL (1.3-4.6) 01/18/22 00:45 Urine Color Yellow (Yellow) 01/18/22 02:58 Urine Appearance Clear (CLEAR) 01/18/22 02:58 Urine pH 6.5 (5-7) 01/18/22 02:58 Ur Specific [place] 1.015 (1.005-1.030) 01/18/22 02:58 Urine Protein Neg (Negative) 01/18/22 02:58 Urine Glucose (UA) Norm (Normal) 01/18/22 02:58 Urine Ketones 1+ (Negative) H 01/18/22 02:58 Urine Blood Neg (Negative) 01/18/22 02:58 Urine Nitrate Negative (Negative) 01/18/22 02:58 Urine Bilirubin Neg (Negative) 01/18/22 02:58 Urine Urobilinogen Norm mg/dL (Negative) 01/18/22 02:58 Ur Leukocyte Esterase Negative (Negative) 01/18/22 02:58 Salicylates < 0.3 mg/dL (3-10) L 01/18/22 00:45 Urine Opiates Screen Negative ng/mL (Negative) 01/18/22 02:58 Acetaminophen < 5.0 ug/mL (10-30) L 01/18/22 00:45 Ur Barbiturates Screen Negative ng/mL (Negative) 01/18/22 02:58 Ur Phencyclidine Scrn Negative ng/mL (Negative) 01/18/22 02:58 Ur Amphetamines Screen Negative ng/mL (Negative) 01/18/22 02:58 U Benzodiazepines Scrn Negative ng/mL (Negative) 01/18/22 02:58 Urine Cocaine Screen Negative ng/mL (Negative) 01/18/22 02:58 U Marijuana (THC) Screen Positive ng/mL (Negative) H 01/18/22 02:58 Ethyl Alcohol < 10 mg/dL (0-10) 01/18/22 00:45 EKG Data EKG 1: I personally reviewed and interpreted this EKG as follows: EKG interpretation date: 01/18/22 EKG interpretation time: 00:20 Interpretation: nsr hr [address] or t wave abnormalities qrs 122 qtc 444 Discharge Plan Discharge Patient Disposition: Home Clinical Impression: Agitation Condition: Stable Prescriptions: No Action alprazolam [Xanax] 0.5 mg tablet 0.5 mg PO DAILY 0RF cyclobenzaprine 10 mg tablet 10 mg PO ONCE PRN0RF tamsulosin [Flomax] 0.4 mg capsule 0.4 mg PO DAILY Qty: 90 0RF doxycycline hyclate 100 mg tablet 100 mg PO BID Qty: 60 4RF glycopyrrolate 1 mg tablet 1 mg PO TID PRN (Reason: muscle spasms) 0RF hydroxyzine HCl 25 mg tablet 25 mg PO TID 0RF atorvastatin 80 mg tablet 80 mg PO DAILY 0RF amlodipine 5 mg tablet 5 mg PO DAILY Qty: 30 4RF esomeprazole magnesium 40 mg capsule,delayed release(DR/EC) 40 mg PO DAILY Qty: 90 1RF metoprolol succinate 25 mg tablet extended release 24 hr 25 mg PO DAILY Qty: 30 0RF dicyclomine 10 mg capsule 10 mg PO QID Qty: 120 0RF docusate sodium [DOK] 100 mg capsule 100 mg PO BID Qty: 60 0RF topiramate [Topamax] 25 mg tablet 25 mg PO BID Qty: 60 0RF ipratropium-albuterol 0.5 mg-3 mg(2.5 mg base)/3 mL Solution For Nebulization 3 ml INHALATION TID PRN (Reason: Shortness Of Breath) 0RF promethazine 25 mg Tablet 25 mg PO Q6H PRN (Reason: Nausea) 0RF albuterol sulfate 90 mcg/actuation Hfa Aerosol Inhaler 2 puff INHALATION TID PRN (Reason: Shortness Of Breath) 0RF budesonide-formoterol [Symbicort] 80-4.5 mcg/actuation Hfa Aerosol Inhaler 2 puff INHALATION BID 0RF ondansetron HCl [Zofran] 4 mg tablet 4 mg PO Q6H PRN (Reason: nausea and vomiting) Qty: 20 0RF Discharge Orders: Discharge ED (Routine); Ordered 01/18/22 Ordered By: Lori Galeana Referrals: Dru Calix MD [Primary Care Provider] - 1-3 days Discharge Diet: Advance as tolerated Discharge Activity: Resume usual activity Patient Instructions: Chest Pain (ED) Coding Level of Care Code ED 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
[2022-01-18 00:45] LABS: Glucose Point of Care 124 mg/dL (70-110)
[2022-01-18] MEDS: sodium chloride 0.9% 1,000 ML 999 ML IV (00:56)
[2022-01-18 01:01] LABS: Basophils % 0.3 %; Eosinophils # 0.1 10^3/uL (0.0-0.8); Eosinophils % 0.6 %; Hematocrit 41.7 % (42.0-52.0); Hemoglobin 14.2 g/dL (11.7-16.6); Lymphocytes # 2.7 10^3/uL (0.8-4.8); Lymphocytes % 22.3 %; Mean Corpuscular HGB Conc 34.1 g/dL (30.0-36.0); Monocytes # 0.7 10^3/uL (0.2-0.9); Monocytes % 6.1 %; Neutrophils # 8.57 10^3/uL (1.8-7.7); Neutrophils % 70.4 %; Nucleated Red Blood Cells % 0 %; Platelet Count 218 10^3/cmm (130-400); Red Blood Count 4.74 10^6/uL (4.1-5.3); Red Cell Distribution Width 12.2 % (12.1-15.1); White Blood Count 12.2 10^3/uL (4.0-10.0)
[2022-01-18] MEDS: ondansetron 2 mg/ML SDV 2 mL 4 MG IVP (01:10)
[2022-01-18 01:27] LABS: Alanine Aminotransferase 30 U/L (0-41); Albumin Level 4.7 g/dL (3.5-5.2); Alkaline Phosphatase 64 IU/L (40-130); Blood Urea Nitrogen 10 mg/dL (6-20); Calcium 8.1 mg/dL (8.5-10.5); Carbon Dioxide 24 mmol/L (22-29); Chloride 105 mmol/L (98-107); Glucose 141 mg/dL (65-115); Osmolality Calculated 293 mOsm/kg (285-295); Sodium 141 mmol/L (136-145); Total Bilirubin 0.4 mg/dL (0.15-1.2); Total Protein 6.7 g/dL (6.6-8.7)
[2022-01-18 01:28] LABS: Acetaminophen < 5.0 ug/mL (10-30); Alcohol Level < 10 mg/dL (0-10); Salicylate < 0.3 mg/dL (3-10); Troponin(5th) Baseline 8 ng/L (0-15)
[2022-01-18 01:29] LABS: Anion Gap 15.5 (5-19); Potassium 3.5 mmol/L (3.5-5.1)
[2022-01-18 01:30] LABS: Aspartate Amino Transferase 32 U/L (0-40)
--- NOTE | 2022-01-18 01:57 | ECG_ITS ---
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 Measurements Intervals [place] Rate: 56 P: 30 WV: 154 QRS: -13 QRSD: 108 T: 12 QT: 438 QTc: 425 Interpretive Statements SINUS BRADYCARDIA Compared to ECG 01/18/2022 00:20:06 Sinus rhythm no longer present Right bundle-branch block no longer present Electronically Signed On 01-18-2022 16:19:10 CDT by Aniyah Wagoner M.D. [id number]
--- NOTE | 2022-01-18 02:58 | PC.NURSE ---
Have called [facility] pt's request for a ride home. messages left and Dr Galeana updated.
[2022-01-18 03:11] LABS: Add Urine Microscopic? NO; Charge for UA Resulting for Rev
[2022-01-18 03:18] LABS: Bilirubin Urine Neg (Negative); Blood Urine Neg (Negative); Glucose Urine UA Norm (Normal); Ketones Urine 1+ (Negative); Leukocyte Esterase Urine Negative (Negative); Nitrate Urine Negative (Negative); Protein Urine Neg (Negative); Specific Gravity, Urine 1.015 (1.005-1.030); Urine Appearance Clear (CLEAR); Urine Color Yellow (Yellow); Urobilinogen Urine Norm (Negative); pH Urine 6.5 (5-7)
[2022-01-18 03:22] LABS: Amphetamines Screen Urine Negative (Negative); Barbiturates Screen Urine Negative (Negative); Benzodiazepines Screen Urine Negative (Negative); Cocaine Screen Urine Negative (Negative); Opiate Screen Urine Negative (Negative); PCP Screen Urine Negative (Negative); THC Screen Urine Positive (Negative)
--- NOTE | 2022-01-18 03:37 | PC.NURSE ---
Pt's son Taz will come to nut picker dad. He is couple hours away
[2022-01-18] MEDS: ondansetron 4 MG Tablet PO (03:56)
== END 2022-01-18 05:30 | disposition home or self-care (01) ==
PROVIDERS: Emergency Provider Emergency Medicine; PCP Family Medicine
DX: R45.1 Restlessness and agitation (principal)
CPT/HCPCS: 36416; 70450; 71045; 80053; 80306; 80307; 81003; 82962; 84484; 85025; 93005; 96361; 96374; 99284; J2405; J7030; Q0162

== ENCOUNTER → 2022-02-11 13:18 | Outpatient (BNVA) | payer MEDICAID, SELFPAY | PROVIDERS: PCP Family Medicine; Visit Provider Internal Medicine Cardiovascular Disease | DX: R06.02 Shortness of breath (principal); R07.9 Chest pain, unspecified; I10 Essential (primary) hypertension; K44.9 Diaphragmatic hernia without obstruction or gangrene; N40.1 Benign prostatic hyperplasia with lower urinary tract symptoms; F41.9 Anxiety disorder, unspecified; Z87.891 Personal history of nicotine dependence | CPT/HCPCS: 99204 ==

== ENCOUNTER 2022-02-12 10:36 | Outpatient (CLI) | payer MEDICAID, SELFPAY ==
--- NOTE | 2022-02-12 11:00 | FL_ITS ---
WS: [id number] FL barium swallow modifd [id number] REASON FOR EXAM: Other dysphagia FLUOROSCOPY TIME: 4.3 # OF SPOT FILMS: 24 FINDINGS: Examination was supervised by the speech therapy department. The swallowing of varying consistencies of barium was performed with the patient in the upright sitti ng position and recorded with be due to fluoroscopy and spot films. The swallowing appeared coordinated without evidence of aspiration. Detailed analysis with report will be rendered by the speech therapy department. The mid and distal esophagus demonstrated normal esophageal motility. There is a small hiatal hernia. At the superior aspect of the hernia there is a stricture in the esop hagus which is band/weblike and difficult to determine true diameter but appears to be significant. P ossibly this narrows 5 mm. Despite the significant stricture the esophagus empties relatively well in the upright position witho ut tertiary contractions or retention of contrast. FL/FL barium swallow modifd [id number] IMPRESSION: Hiatal hernia and distal esophageal stricture. Swallowing report will be rendered by speech therapy department.
== END 2022-02-12 10:37 | disposition home or self-care (01) ==
LOC: RAD 10:37
PROVIDERS: PCP Family Medicine; Visit Provider Surgery
DX: K92.0 Hematemesis (principal); K44.9 Diaphragmatic hernia without obstruction or gangrene; K22.2 Esophageal obstruction
CPT/HCPCS: 74230; 92611

== ENCOUNTER 2022-03-04 19:37 | Emergency (ER) | payer MEDICAID, SELFPAY ==
[2022-03-04 19:45] VITALS: PULSE 56; RESP 16; TEMP 36.7; O2SAT 95
[2022-03-04 20:45] LABS: Basophils # 0.1 10^3/uL (0.0-0.1); Basophils % 0.6 %; Eosinophils # 0.4 10^3/uL (0.0-0.8); Eosinophils % 4.4 %; Hemoglobin 13.4 g/dL (11.7-16.6); Lymphocytes # 2.7 10^3/uL (0.8-4.8); Lymphocytes % 32.3 %; Mean Corpuscular HGB Conc 34.4 g/dL (30.0-36.0); Mean Corpuscular Volume 87.2 fl (80-94); Mean Platelet Volume 11.7 fL (7.4-10.4); Monocytes # 0.5 10^3/uL (0.2-0.9); Monocytes % 6.4 %; Neutrophils # 4.74 10^3/uL (1.8-7.7); Neutrophils % 56.1 %; Nucleated Red Blood Cells % 0 %; Platelet Count 190 10^3/cmm (130-400); Red Blood Count 4.47 10^6/uL (4.1-5.3); Red Cell Distribution Width 12.4 % (12.1-15.1); White Blood Count 8.5 10^3/uL (4.0-10.0)
--- NOTE | 2022-03-04 20:52 | W.ED.GENADLT ---
HPI - General Adult General: Chief complaint: General Medical Stated complaint: High B/P Time Seen by Provider: 03/04/22 20:33 Source: patient Mode of arrival: ambulatory Limitations: no limitations History of Present Illness: 51-year-old male who states that over the last 2 to 3 days been having some back pain along with body aches and muscle cramps also had nausea. States he has been working out in the heat and feels like he is overdone it and became dehydrated. Denies any diarrhea denies any fevers denies any worsening proving factors he states he is felt lightheaded but has not had any syncopal events. Associated symptoms: Reports nausea and vomiting; Deny chest pain, dyspnea, headache(s) or rash Review of Systems Const: Reports: body aches and fatigue Eyes: Denies: blurry vision or eye discomfort ENMT: Denies: throat pain or dental pain Card: Denies: chest pain Resp: Denies: dyspnea GI: Reports: nausea and vomiting : Denies: dysuria Musc: Denies: neck pain or back pain Skin/Breast: Denies: rash Neuro: Denies: headache(s) Psych: Denies: depression Jordin/Lymph: Denies: easy bruising All/Imm: Denies: urticaria PFSH ED PFSH: Medical History Anxiety COPD (chronic obstructive pulmonary disease) Degenerative disc disease Esophageal cancer Helicobacter pylori gastritis Hiatal hernia History of tumor Removed from Groin Hypertension Lymphadenopathy Obstructive sleep apnea Rectal cancer Rheumatoid arthritis Skin cancer Surgical History H/O abdominal surgery H/O colonoscopy H/O sinus surgery History of colon surgery History of esophageal surgery History of esophagogastroduodenoscopy (EGD) History of umbilical hernia repair Multi Family History Family/Other Cancer Family history of breast cancer, colon cancer especially maternal side Father CAD (coronary artery disease) Hyperlipidemia Hypertension Cancer prostate Mother Hypertension Social History Smoking and tobacco status: former smoker Alcohol intake: former Former alcohol use details: 15 years Marital status: Current occupational status: disabled History of recent travel: No Physical Exam Const: COMMON NORMALS: no acute distress, patient oriented x3 and healthy appearing HENMT: COMMON NORMALS: normocephalic and atraumatic HEAD & SCALP: normocephalic and atraumatic Eye: COMMON NORMALS: Equal, round and reactive pupils present and EOMs intact bilaterally PUPIL: Yes Equal, round and reactive pupils present Neck/C-Spine: COMMON NORMALS: full ROM and supple Chest: COMMONS NORMALS: normal inspection of the chest and normal palpation of entire chest wall Resp: COMMON NORMALS: normal respiratory effort, No retractions, No use of accessory muscles and clear to auscultation bilaterally AUSCULTATION: clear to auscultation bilaterally Cardio: COMMON NORMALS: regular rate, regular rhythm and No murmurs present (Cardio) RATE: regular rate RHYTHM: regular rhythm GI: COMMON NORMALS: Normal to inspection, nondistended, normoactive bowel sounds present, Soft to palpation, non-tender and no masses PALPATION: Yes Soft to palpation Extremity: COMMON NORMALS: normal to inspection and full ROM Neuro: COMMON NORMALS: patient oriented x3, moves all extremities and no focal motor deficits Psych: COMMON NORMALS: mental status grossly normal, Normal thought process present and cooperative THOUGHT PROCESS: Normal thought process present Skin: COMMON NORMALS: no rashes or lesions noted and no wounds GENERAL SKIN EXAM: no rashes or lesions noted Course Vital Signs: Vital signs: Vital Signs Temperature 98.0 F 03/04/22 19:45 Pulse Rate 56 L 03/04/22 19:45 Respiratory Rate 20 H 03/04/22 23:07 Pulse Oximetry 95 03/04/22 19:45 [facility] - General Adult Medical Decision Making Patient presents with body aches with dehydration. He feels much improved here after IV fluids. Blood work here is all normal he is stable for discharge is to follow-up with PCP and return if worsening he understands agrees to plan Lab Data : 03/04/22 20:35 03/04/22 21:24 Laboratory Results WBC 8.5 10^3/uL (4.0-10.0) 03/04/22 20:35 RBC 4.47 10^6/uL (4.1-5.3) 03/04/22 20:35 Hgb 13.4 g/dL (11.7-16.6) 03/04/22 20:35 Hct 39.0 % (42.0-52.0) L 03/04/22 20:35 MCV 87.2 fl (80-94) 03/04/22 20:35 MCH 30.0 pg (28.0-34.0) 03/04/22 20:35 MCHC 34.4 g/dL (30.0-36.0) 03/04/22 20:35 RDW 12.4 % (12.1-15.1) 03/04/22 20:35 Plt Count 190 10^3/cmm (130-400) 03/04/22 20:35 MPV 11.7 fL (7.4-10.4) H 03/04/22 20:35 Neut % (Auto) 56.1 % 03/04/22 20: Lymph % (Auto) 32.3 % 03/04/22 20:35 [place] % (Auto) 6.4 % 03/04/22 20: Eos % (Auto) 4.4 % 03/04/22 20:35 Baso % (Auto) 0.6 % 03/04/22 20:35 Neut # (Auto) 4.74 10^3/uL (1.8-7.7) 03/04/22 20:35 Lymph # (Auto) 2.7 10^3/uL (0.8-4.8) 03/04/22 20:35 [place] # (Auto) 0.5 10^3/uL (0.2-0.9) 03/04/22 20:35 Eos # (Auto) 0.4 10^3/uL (0.0-0.8) 03/04/22 20:35 Baso # (Auto) 0.1 10^3/uL (0.0-0.1) 03/04/22 20:35 Nucleated RBC % (auto) 0 % 03/04/22: Nucleated RBCs # 0.0 /100WBC 03/04/22 20:35 Sodium 140 mmol/L (136-145) 03/04/22 21:24 Potassium 3.3 mmol/L (3.5-5.1) L 03/04/22 21:24 Chloride 104 mmol/L (98-107) 03/04/22 21:24 Carbon Dioxide 28 mmol/L (22-29) 03/04/22 21:24 Anion Gap 11.3 (5-19) 03/04/22 21:24 BUN 13 mg/dL (6-20) 03/04/22 21:24 Creatinine 0.7 mg/dL (0.7-1.2) 03/04/22 21:24 GFR Calculation 118.9 mL/min (90-130) 03/04/22 21:24 Glucose 92 mg/dL (65-115) 03/04/22 21:24 Calculated Osmolality 290 mOsm/kg (285-295) 03/04/22 21:24 Calcium 8.6 mg/dL (8.5-10.5) 03/04/22 21:24 Creatine Kinase 243 U/L (39-308) 03/04/22 21:24 Creatine Kinase Cancelled 03/04/22 21:24 EKG Data EKG 1: I personally reviewed and interpreted this EKG as follows: EKG interpretation date: 03/04/22 EKG interpretation time: 19:44 Interpretation: sinus trevor hr [address] or t wave abnormalities qrs 100 qtc 402 Discharge Plan Discharge Patient Disposition: Home Clinical Impression: Dehydration, Heat exposure Condition: Stable Prescriptions: New ondansetron 4 mg tablet,disintegrating 4 mg PO Q6H PRN (Reason: nausea and vomiting) Qty: 14 0RF No Action alprazolam [Xanax] 0.5 mg tablet 0.5 mg PO DAILY 0RF tamsulosin [Flomax] 0.4 mg capsule 0.4 mg PO DAILY Qty: 90 0RF amlodipine 5 mg tablet 10 mg PO DAILY 0RF hydroxyzine HCl 25 mg tablet 25 mg PO TID 0RF atorvastatin 80 mg tablet 80 mg PO DAILY 0RF sulfamethoxazole-trimethoprim [Bactrim DS] 800-160 mg tablet 1 tab PO BID 10 Days Qty: 20 0RF esomeprazole magnesium 40 mg capsule,delayed release(DR/EC) 40 mg PO DAILY Qty: 90 1RF metoprolol succinate 25 mg tablet extended release 24 hr 25 mg PO DAILY Qty: 30 0RF dicyclomine 10 mg capsule 10 mg PO QID Qty: 120 0RF docusate sodium [DOK] 100 mg capsule 100 mg PO BID Qty: 60 0RF topiramate [Topamax] 25 mg tablet 25 mg PO BID Qty: 60 0RF ipratropium-albuterol 0.5 mg-3 mg(2.5 mg base)/3 mL Solution For Nebulization 3 ml INHALATION TID PRN (Reason: Shortness Of Breath) 0RF promethazine 25 mg Tablet 25 mg PO Q6H PRN (Reason: Nausea) 0RF albuterol sulfate 90 mcg/actuation Hfa Aerosol Inhaler 2 puff INHALATION TID PRN (Reason: Shortness Of Breath) 0RF budesonide-formoterol [Symbicort] 80-4.5 mcg/actuation Hfa Aerosol Inhaler 2 puff INHALATION BID 0RF Discharge Orders: Discharge ED (Routine); Ordered 03/04/22 Ordered By: Lori Galeana Referrals: Dru Calix MD [Primary Care Provider] - Discharge Diet: Advance as tolerated Discharge Activity: Resume usual activity Patient Instructions: Dehydration (ED) Coding Level of Care Code ED 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
[2022-03-04 21:56] LABS: Anion Gap 11.3 (5-19); Blood Urea Nitrogen 13 mg/dL (6-20); Calcium 8.6 mg/dL (8.5-10.5); Carbon Dioxide 28 mmol/L (22-29); Chloride 104 mmol/L (98-107); Glomerular Filtration Rate 118.9 mL/min (90-130); Glucose 92 mg/dL (65-115); Osmolality Calculated 290 mOsm/kg (285-295); Potassium 3.3 mmol/L (3.5-5.1); Sodium 140 mmol/L (136-145)
[2022-03-04 22:33] LABS: Creatine Phosphokinase 243 U/L (39-308)
[2022-03-04] MEDS: sodium chloride 0.9% 1,000 ML 999 ML IV (22:39)
[2022-03-04] MEDS: ondansetron 2 mg/ML SDV 2 mL 4 MG IVP ×2 (22:40→23:07)
[2022-03-04 23:07] VITALS: RESP 20
[2022-03-04] MEDS: morphine 4 mg/mL SDV 1 mL IVP (23:07)
[2022-03-05 00:48] LABS: CKMB 3.9 ng/mL (0-10.4)
== END 2022-03-05 00:30 | disposition home or self-care (01) ==
PROVIDERS: Emergency Medicine; Emergency Provider Emergency Medicine; PCP Family Medicine
DX: E86.0 Dehydration (principal); X30.XXXA Exposure to excessive natural heat, initial encounter; R11.2 Nausea with vomiting, unspecified
CPT/HCPCS: 80048; 82550; 82553; 85025; 96361; 96374; 96375; 96376; 99284; J2270; J2405; J7030

== ENCOUNTER → 2022-03-30 17:10 | Outpatient (BNVA) | payer MEDICAID, SELFPAY | PROVIDERS: PCP Family Medicine Adult Medicine; Visit Provider Registered Nurse Neonatal Intensive Care | DX: M25.562 Pain in left knee (principal); M79.641 Pain in right hand | CPT/HCPCS: 73130; 73562 ==

== ENCOUNTER → 2022-04-30 15:58 | Outpatient (BNVA) | payer MEDICAID, SELFPAY | PROVIDERS: PCP Family Medicine Adult Medicine; Visit Provider Family Medicine Adult Medicine | DX: R20.2 Paresthesia of skin (principal); R07.9 Chest pain, unspecified; I10 Essential (primary) hypertension; R39.15 Urgency of urination; G89.21 Chronic pain due to trauma; F41.9 Anxiety disorder, unspecified; G47.33 Obstructive sleep apnea (adult) (pediatric); E78.5 Hyperlipidemia, unspecified; R59.1 Generalized enlarged lymph nodes; R31.9 Hematuria, unspecified | CPT/HCPCS: 80053; 81000; 84443; 84484; 85025 ==

== ENCOUNTER 2022-05-07 14:05 | Emergency (ER) | payer MEDICAID, SELFPAY ==
[2022-05-07 14:17] VITALS: BP 134/74; PULSE 88; RESP 16; TEMP 36.9; O2SAT 95
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
[2022-05-07 17:42] VITALS: RESP 16
[2022-05-07] MEDS: morphine 4 mg/mL SDV 1 mL IM ×2 (17:42→18:49)
[2022-05-07] MEDS: ondansetron 2 mg/ML SDV 2 mL 4 MG IM (17:42)
[2022-05-07 18:49] VITALS: RESP 16
[2022-05-07 19:34] VITALS: BP 137/82; PULSE 71; RESP 18; O2SAT 95
--- NOTE | 2022-05-08 10:18 | DCPLANNER ---
Addendum entered by Sita Parker 05/14/22 14:28: Patient had a follow up appointment scheduled for 05.12.[address] Leyva at ortho - patient did attend appointment. Original Note: online communications manager had message to schedule a follow up appointment for patient with ortho. online communications manager sent patients information to the front office staff at ortho. Patients information will be printed and reviewed. Clinic will call patient with appointment information.
== END 2022-05-07 19:35 | disposition home or self-care (01) ==
PROVIDERS: Emergency Provider Physician Assistant; PCP Family Medicine Adult Medicine
DX: S22.040A Wedge compression fracture of fourth thoracic vertebra, initial encounter for closed fracture (principal); J44.9 Chronic obstructive pulmonary disease, unspecified; Z85.01 Personal history of malignant neoplasm of esophagus; E78.5 Hyperlipidemia, unspecified; I10 Essential (primary) hypertension; Z85.048 Personal history of other malignant neoplasm of rectum, rectosigmoid junction, and anus; Z87.891 Personal history of nicotine dependence; V89.2XXA Person injured in unspecified motor-vehicle accident, traffic, initial encounter
CPT/HCPCS: 70450; 72125; 72128; 72131; 73030; 96372; 99284; J2270; J2405

== ENCOUNTER → 2022-05-12 10:46 | Outpatient (BNVA) | payer SELFPAY | PROVIDERS: PCP Family Medicine Adult Medicine; Visit Provider Orthopaedic Surgery | DX: S22.000A Wedge compression fracture of unspecified thoracic vertebra, initial encounter for closed fracture (principal); V89.2XXA Person injured in unspecified motor-vehicle accident, traffic, initial encounter; M19.122 Post-traumatic osteoarthritis, left elbow | CPT/HCPCS: 72072; 73070; 73560; 73565 ==

== ENCOUNTER → 2022-06-04 09:38 | Outpatient (BNVA) | payer SELFPAY | PROVIDERS: PCP Family Medicine Adult Medicine; Visit Provider Orthopaedic Surgery | DX: S22.000A Wedge compression fracture of unspecified thoracic vertebra, initial encounter for closed fracture (principal); V49.9XXA Car occupant (driver) (passenger) injured in unspecified traffic accident, initial encounter; R20.0 Anesthesia of skin | CPT/HCPCS: 72070 ==

== ENCOUNTER 2022-06-30 11:43 | Outpatient (CLI) | payer MEDICAID, SELFPAY ==
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
== END 2022-06-30 11:44 | disposition home or self-care (01) ==
PROVIDERS: PCP Family Medicine Adult Medicine; Visit Provider Orthopaedic Surgery
DX: Z04.1 Encounter for examination and observation following transport accident (principal); M48.02 Spinal stenosis, cervical region; K44.9 Diaphragmatic hernia without obstruction or gangrene; M40.294 Other kyphosis, thoracic region
CPT/HCPCS: 72141; 72146

== ENCOUNTER → 2022-07-16 09:03 | Outpatient (BNVA) | payer MEDICAID, SELFPAY | PROVIDERS: PCP Family Medicine Adult Medicine; Visit Provider Orthopaedic Surgery | DX: M54.9 Dorsalgia, unspecified (principal); Z87.81 Personal history of (healed) traumatic fracture | CPT/HCPCS: 99213; 99214 ==

== ENCOUNTER 2022-07-28 13:00 | Outpatient (CLI) | payer MEDICAID, SELFPAY ==
--- NOTE | 2022-07-28 | ECG_ITS ---
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 Interpretive Statements NAME OF STUDY: DOBUTAMINE STRESS ECHOCARDIOGRAM INDICATION: Chest Pain PROCEDURE: At the baseline, the blood pressure was 124/66 mmHg with a heart rate of 55 bpm. The electrocardiogram showed sinus bradycardia, normal axis. Normal ST and T's. The dobutamine was infused over a period of 24 minutes 58 seconds. The maximum heart rate obtained was 138 bpm (82% of the maximum predicted heart rate). The blood pressure at that time was 137/69 mmHg. The patient did not have any chest pain or any significant electrocardiogram changes with the dobutamine infusion. No arrhythmias were seen on the monitor. Patient developed aggressive dry heaves pain and became diaphoretic. During the recovery phase, the patient did not have any specific symptoms. The blood pressure at the end of the recovery phase was 128/87 mmHg with a heart rate of 91 beats per minute. CONCLUSION: 1. Patient reached 82% of maximum predicted heart rate. Target HR not acheived in spite of receiving atropine 0.5 mg during the study. Test stopped at 24 min 58 sec due to pt unable to tolerate dobutamine at that time. Patient developed aggressively dry heaving, diaphoretic. 2. No EKG changes during dobutamine infusion. 3. Echo images at peak infusion and recovery could not be obtained due to patient's nausea and vomiting. Electronically Signed On 08-03-2022 13:08:00 CDT by Aniyah Wagoner M.D. [id number]
[2022-07-28 13:03] VITALS: BMI 26.7
--- NOTE | 2022-07-28 13:04 | USCV_ITS ---
Paco Escobedo Age: 52 Gender: M : 1970 Exam Date: 07/28/2022 13:15 Ordering Phys: Aniyah Wagoner MD ([email or web address]) Technologist: RAJANI Exam Location: [facility] – [place] Indication: CHEST PAIN BP: 127 / 74 HR: 65 Rhythm: Sinus Technical Quality: Adequate MEASUREMENTS (Male / Female) Normal Values 2D ECHO LVOT Diameter 2.0 cm LV Ejection Fraction MOD 2C 72.3 % LV Ejection Fraction 2C AL 73.2 % Aorta at Sinotubular Diameter 2.8 cm DOPPLER AV Peak Velocity 147.0 cm/s LVOT Peak Velocity 101.0 cm/s AV Area Cont Eq vti 2.1 cm squared AV Area Cont Eq pk 2.2 cm squared MV Area PHT 3.9 cm squared Mitral E to A Ratio 1.2 MV E' Velocity 82.0 cm/s FINDINGS Left Ventricle Normal left ventricular size, systolic function and wall thickness, with no regional wall motion abnormalities. Left ventricular ejection fraction is estimated at 65 %. Right Ventricle Normal right ventricular size and systolic function. Right Atrium Normal right atrial size. Left Atrium Normal left atrial size. Mitral Valve Structurally normal mitral valve. Aortic Valve Structurally normal trileaflet aortic valve. No aortic valve stenosis. Tricuspid Valve Structurally normal tricuspid valve. Pulmonic Valve Structurally normal pulmonic valve. Pericardium No pericardial effusion. Aorta Normal size aortic root and proximal ascending aorta. IVC Inferior vena cava not visualized. CONCLUSIONS 1. Patient did not meet target heart rate for stress echo. 2. Normal left ventricular size and systolic function with no regional wall motion abnormality. Left ventricular ejection fraction estimated at 65%. 3. Normal right ventricular size and systolic function. Aniyah Wagoner MD (Electronically Signed) Final Date: 29 July 2022 21:13 S
--- NOTE | 2022-07-28 13:42 | PC.NURSE ---
Pt unable to complete exercise stress echo due to limitations of lower back to left leg dragging. Test aborted due to patient close to fall off of treadmill . Dr. Wagoner notified of event and received verbal orders to change to dobutamine stress echo.
--- NOTE | 2022-07-28 13:49 | USCV_ITS ---
Paco Escobedo Age: 52 Gender: M : 1970 Exam Date: 07/28/2022 13:56 Ordering Phys: Aniyah Wagoner MD ([email or web address]) Technologist: RAJANI [place] [facility] [place]: CHEST PAIN Rhythm: Sinusbrady Patient History: HTN, Hyperlipidemia, Former Smoker Cardiac Medications: Amlodipine 5mg Daily, Metoprolol 25mg Daily Medications in past 24 hours: No Contrast: Stress Results Protocol: Vargas Total dose(mL): Exercise Duration (min:sec): 24:58 METS: 1.0 Resting HR: 55 Resting BP: 124 / 66 Peak HR: 138 Peak BP: 153 / 87 Max Predicted HR: 168 82 % Max Predicted HR Target HR: 143 Double Product: [id number] Stress Summary: Dobutmaine Stess Echo. 0.5mg IV atropine given 18 minutes after start of dobutamine. Dobutamine dose reached 70mcg/kg/min. Pt did not tolerate dobutamine infusion. Did not meet target HR BP Response: Normal Reason for Termination: Intolerance of Dobutamine, unable to acheive target HR 25 minutes into procotol Cardiac Symptoms: Diaphoresis, Nausea ECG Analysis Resting ECG: Stress ECG: Arrhythmia: MEASUREMENTS (Male/Female) Normal Values FINDINGS 1. At the baseline, the patient's blood pressure was 124/66 mmHg with a heart rate of 55 beats per minute. The electrocardiogram showed normal sinus rhythm with normal ST-Ts. 2. The Dobutamine was infused over 25 minutes. The patient was given a total of 0.5 mg of IV atropine for better heart rate response. The maximum heart rate obtained was 138 beats per minute. The patient attained 82% of the maximum predicted heart rate. The blood pressure at the end of the infusion was 153/87 mmHg. Patient did not have any chest pain or any significant electrocardiogram changes with the Dobutamine infusion. No arrhythmias were seen on the monitor. 3. At the baseline, the patient's echocardiogram revealed normal cardiac chamber sizes with normal LV ejection fraction of 60%. Segmental wall motion analysis revealed no regional wall motion abnormality. There were no intracardiac masses. No significant pericardial effusion. Aortic root appears to be upper limits of normal size. 4. With the low Dobutamine infusion, there was good augmentation of all the segments with no Dobutamine-induced wall motion abnormalities. 5. During the recovery phase, the patient did not have any symptoms or any EKG changes. 6. The echocardiogram during the peak dobutamine infusion and recovery phase could not be obtained due to significant nausea and vomiting that patient developed at peak infusion. CONCLUSIONS 1. Normal electrocardiogram response to Dobutamine infusion. 2. Patient did not achieve target heart rate. It seems like dobutamine peak dose was increased to 70 mcg/kg/min with side effect of significant nausea and vomiting. 3. No Dobutamine-induced chest pain or cardiac arrhythmia. 4. Peak dobutamine infusion and recovery echo images could not be obtained. 5. Alternate modality of pharmacological stress testing is recommended. Aniyah Wagoner MD (Electronically Signed) Final Date: 03 August 2022 13:19 S
[2022-07-28] MEDS: DOBUTtamine 200 MG in sodium chloride 0.9% 34 ML 12 MG IV (14:00)
[2022-07-28] MEDS: atropine 0.1 mg/mL Syr 10 mL 0.5 MG IVP (14:19)
[2022-07-28] MEDS: ondansetron 2 mg/ML SDV 2 mL 4 MG IVP ×2 (14:27→14:42)
--- NOTE | 2022-07-28 14:35 | PC.NURSE ---
Dobutamine Echo Target HR was not achieved with dobutamine protocol. Exercise time into protocol was 25 minutes, with dose of dobutamine being 70mcg/kg/min with 0.5mg of atropine. At minute 25 patient started to aggressively dry heave. Pt diaphoretic , demanding to stop. Dobutamine stopped at this time. Pt now anxious frequently positioning himself, fast unpredictable movements all over bed to become comfortable, reporting he doesn't feel good . See MAR for medication administrations. Dr. Wagoner notified of event and inability to meet target HR, orders to send images and reports of what was obtained even though target HR was not acheived, no further orders received. 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
[2022-07-28 14:57] VITALS: BP 134/80; PULSE 92
--- NOTE | 2022-07-28 15:08 | PC.NURSE ---
Discharge Pt HR and BP back to baseline. Pt reports feeling better followed by I'm gonna go light up a big dubie and eat a cheeseburger . Asks internal communications writer if Herb would have anything to do with it and reports use of medical marijuana. Patient escorted to front door by wheelchair and Shuttle service called for patient.
== END 2022-07-28 13:01 | disposition home or self-care (01) ==
LOC: CDL 13:02
PROVIDERS: PCP Family Medicine Adult Medicine; Visit Provider Internal Medicine Cardiovascular Disease
DX: R07.9 Chest pain, unspecified (principal)
CPT/HCPCS: 93017; 93308; 93350; 99214; J0461; J1250; J2405; J7050

== ENCOUNTER → 2022-08-04 13:20 | Outpatient (BNVA) | payer MEDICAID, SELFPAY | PROVIDERS: PCP Family Medicine Adult Medicine; Visit Provider Orthopaedic Surgery | DX: R06.02 Shortness of breath (principal); I10 Essential (primary) hypertension; E78.5 Hyperlipidemia, unspecified; G47.33 Obstructive sleep apnea (adult) (pediatric); K21.9 Gastro-esophageal reflux disease without esophagitis; N40.1 Benign prostatic hyperplasia with lower urinary tract symptoms; F41.9 Anxiety disorder, unspecified; Z87.891 Personal history of nicotine dependence; S22.049D Unspecified fracture of fourth thoracic vertebra, subsequent encounter for fracture with routine healing; V89.2XXD Person injured in unspecified motor-vehicle accident, traffic, subsequent encounter; M47.22 Other spondylosis with radiculopathy, cervical region; R53.1 Weakness | CPT/HCPCS: 72070; 99214 ==

== ENCOUNTER → 2022-08-10 09:08 | Outpatient (BNVA) | payer MEDICAID, SELFPAY | PROVIDERS: PCP Family Medicine Adult Medicine; Visit Provider Anesthesiology Pain Medicine | DX: G89.29 Other chronic pain (principal); M54.16 Radiculopathy, lumbar region; M47.814 Spondylosis without myelopathy or radiculopathy, thoracic region; M50.90 Cervical disc disorder, unspecified, unspecified cervical region; M54.12 Radiculopathy, cervical region; M79.604 Pain in right leg; M79.605 Pain in left leg; Z87.891 Personal history of nicotine dependence | CPT/HCPCS: 99205 ==

== ENCOUNTER → 2022-08-13 13:58 | Outpatient (BNVA) | payer MEDICAID, SELFPAY | PROVIDERS: PCP Family Medicine Adult Medicine; Visit Provider Family Medicine Adult Medicine | DX: R39.9 Unspecified symptoms and signs involving the genitourinary system (principal); R59.0 Localized enlarged lymph nodes | CPT/HCPCS: 81000 ==

== ENCOUNTER 2022-09-01 08:16 | Outpatient (CLI) | payer MEDICAID, SELFPAY ==
--- NOTE | 2022-09-01 08:00 | MR_ITS ---
WS: [id number] MRI LUMBAR SPINE NONCONTRAST HISTORY: pain, bilateral leg pain and numbness. COMPARISON: Prior CT lumbar spine 05/07/2022 TECHNIQUE: Sagittal and axial multisequence imaging is submitted. Mild increase in the thoracic kyphosis. Very slight straightening of the normal lumbar lordosis. No vertebral body fracture or marrow edema. There is a small amount of edema in the LEFT L4 inferior articular facet. Small amount of adjacent so ft tissue edema. Disc spaces are otherwise mildly desiccated but well-preserved. Conus terminates normally at L1-2 disc level. L1-L2: Normal. L2-L3: Normal. L3-L4: Mild ligamentum flavum and facet arthritis. L4-L5: Mild facet joint arthritis. No high-grade stenosis. Very slight asymmetric disc bulging to the LEFT foramen. L5-S1: Mild disc bulging. Central disc protrusion not contacting the S1 nerve roots. There is a very small RIGHT foraminal disc protrusion minimally contacting but not displacing the exiting RIGHT L5 ne rve root. Mild atherosclerosis in the abdominal aorta. Horseshoe kidneys. MR/MR lumbar spine wo con* [id number] IMPRESSION: 1. No high-grade central stenosis or acute vertebral fracture. 2. Small amount of marrow edema LEFT L4 inferior facet with a small amount of edema in the soft tissues. Mild synovitis. 3. No high-grade central stenosis. 4. Small central disc protrusion at L5-S1. 5. Very minimal RIGHT foraminal disc protrusion at L5-S1. Very minimal contact on the exiting RIGHT L5 nerve root. 6. Horseshoe kidneys.
== END 2022-09-01 08:17 | disposition home or self-care (01) ==
LOC: RAD 08:16
PROVIDERS: PCP Family Medicine Adult Medicine; Visit Provider Orthopaedic Surgery
DX: Q63.1 Lobulated, fused and horseshoe kidney (principal); M51.27 Other intervertebral disc displacement, lumbosacral region
CPT/HCPCS: 72148; 99205

== ENCOUNTER 2022-09-03 17:33 | Emergency (ER) | payer MEDICAID, SELFPAY ==
[2022-09-03 17:47] VITALS: BP 139/79; PULSE 96; RESP 14; TEMP 37.4; O2SAT 97; BMI 26.7
[2022-09-03] MEDS: sodium chloride 0.9% 1,000 ML 999 ML IV (19:30)
[2022-09-03] MEDS: ondansetron 2 mg/ML SDV 2 mL 4 MG IVP ×2 (19:39→22:22)
[2022-09-03 19:43] LABS: Basophils % 0.7 %; Eosinophils # 0.1 10^3/uL (0.0-0.8); Eosinophils % 1.3 %; Hematocrit 44.7 % (42.0-52.0); Lymphocytes # 1.3 10^3/uL (0.8-4.8); Lymphocytes % 28.1 %; Mean Corpuscular HGB Conc 33.6 g/dL (30.0-36.0); Mean Corpuscular Hemoglobin 29.9 pg (28.0-34.0); Monocytes # 0.6 10^3/uL (0.2-0.9); Monocytes % 12.3 %; Neutrophils # 2.61 10^3/uL (1.8-7.7); Neutrophils % 57.2 %; Nucleated Red Blood Cells % 0 %; Platelet Count 213 10^3/cmm (130-400); Red Blood Count 5.02 10^6/uL (4.1-5.3); White Blood Count 4.6 10^3/uL (4.0-10.0)
[2022-09-03 19:58] LABS: Alanine Aminotransferase 39 U/L (0-41); Alkaline Phosphatase 83 U/L (40-130); Anion Gap 13.7 (5-19); Aspartate Amino Transferase 30 U/L (0-40); Blood Urea Nitrogen 9 mg/dL (6-20); Calcium 9.2 mg/dL (8.5-10.5); Carbon Dioxide 26 mmol/L (22-29); Chloride 100 mmol/L (98-107); Globulin 3.5 g/dL (1.3-4.6); Glomerular Filtration Rate 118.4 mL/min (90-130); Glucose 71 mg/dL (65-115); Osmolality Calculated 279 mOsm/kg (285-295); Potassium 3.7 mmol/L (3.5-5.1); Sodium 136 mmol/L (136-145); Total Bilirubin 0.3 mg/dL (0.15-1.2); Total Protein 7.5 g/dL (6.6-8.7)
[2022-09-03] MEDS: HYDROcodone-acetaminophen 5-325 mg Tablet 1 TAB PO (20:34)
--- NOTE | 2022-09-03 20:56 | ED_ITS ---
HPI - Fever General: Chief Complaint: Fever Stated Complaint: Sore Throat\Body Cramps\V\Dehydrated Time Seen by Provider: 09/03/22 19:05 History of Present Illness: Patient reports that he has been feeling terrible x2 days. He reports fever, chills, body aches, sore throat, vomiting. He does report that he is coughing every now and then per day. He reports that he has vomited more than 10 times today cannot keep anything down. He is only drank 2 bottles of Sprite in the past 2 days. He reports that he is currently on doxycycline antibiotic for a lymph node in his groin. He reports a history of tumor there and previous surgery. He reports he has not peed all day. He sta robyn that he does not feel the need to pee but he has some lower bladder pressure. Associated symptoms: Reports chills, nasal congestion, nausea and vomiting; Deny abdominal pain, flank pain, chest pain or dysuria Review of Systems Const: Reports: fever(s), chills, body aches and fatigue ENMT: Reports: throat pain, nasal discharge and nasal congestion Card: Denies: chest pain or palpitations Resp: Reports: productive cough and wheezing (Intermittent chronic. Patient reports COPD); Denies: dyspnea or non-productive cough GI: Reports: nausea and vomiting; Denies: abdominal pain : Reports: difficulty urinating; Denies: flank pain or dysuria PFSH ED PFSH: Medical History Anxiety PTSD and Panic Arm paresthesia, right Boxer's metacarpal fracture, neck, closed Chest pain Chronic pain due to injury Colon polyps Conversion disorder COPD (chronic obstructive pulmonary disease) Degenerative disc disease Diverticulosis large intestine w/o perforation or abscess w/bleeding Esophageal cancer Fibromyalgia GERD (gastroesophageal reflux disease) Helicobacter pylori gastritis Hematuria Hiatal hernia Hiatal hernia History of tumor Removed from Groin Hyperlipidemia Hypertension Jock itch LAD (lymphadenopathy), inguinal Obstructive sleep apnea 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 sides of body Photosensitization due to sunlight PUD (peptic ulcer disease) Rectal cancer Not clear, no records Sebaceous cyst Seizure disorder Ventral hernia Surgical History H/O abdominal surgery H/O colonoscopy with Polypectomy H/O sinus surgery History of colon surgery History of esophageal surgery History of esophagogastroduodenoscopy (EGD) History of umbilical hernia repair History of vasectomy S/P carpal tunnel release Rt side in 2019 and again 03/25/2022 Family History Family/Other Cancer Family history of breast cancer, colon cancer especially maternal side Father CAD (coronary artery disease) Hyperlipidemia Hypertension Cancer prostate Mother Hypertension Social History Smoking and tobacco status: former smoker Second hand smoke exposure: No Alcohol intake: former Former alcohol use details: 15 years Desire information about alcohol rehabilitation?: No Desire information about substance/drug rehabilitation?: No Marital status: Current occupational status: disabled History of recent travel: No Physical Exam Const: COMMON NORMALS: patient oriented x3 and alert OTHER: Ill-appearing male, nontoxic HENMT: COMMON NORMALS: TM's normal bilaterally TYMPANIC MEMBRANE: TM's no rmal bilaterally THROAT: posterior oropharynx normal and postnasal drainage Neck/C-Spine: COMMON NORMALS: no JVD Resp: COMMON NORMALS: normal respiratory effort and No use of accessory muscles AUSCULTATION: wheezes expiratory wheezes and throughout Cardio: COMMON NORMALS: no JVD, regular rate, regular rhythm, S1 normal heart sound present, S2 normal heart sound present and No murmurs present (Cardio) RATE: regular rate RHYTHM: regular rhythm HEART SOUNDS: S1 normal heart sound present and S2 normal heart sound present GI: COMMON NORMALS: Normal to inspection, nondistended, normoactive bowel sounds present, Soft to palpation and non-tender PALPATION: Yes Soft to palpation Neuro: COMMON NORMALS: patient oriented x3 SENSORIUM/ORIENTATION: Yes alert Course Vital Signs: Vital signs: Vital Signs Temperature 99.3 F 09/03/22 17:47 Pulse Rate 96 09/03/22 17:47 Respiratory Rate 14 09/03/22 17:47 Blood Pressure 139/79 09/03/22 17:47 Pulse Oximetry 97 09/03/22 17:47 Oxygen Delivery Me thod 09/03/22 17:47 MDM - Fever Medical Decision Making Consider influenza, dehydration, gastroenteritis, urinary tract infection. Patient is ill-appearing nontoxic. He is vomiting Zofran helps control the nausea. Patient test positive for influenza. White blood cell count is within normal limits labs are essentially unremarkable. Initially patient was not able to urinate. IV fluid bolus was given x1. Cath UA was obtained. Urine unremarkable except 1+ ketones. Discussed conservative treatments for influenza and dehydration with patient. Patient feels like he can drink water now that he has had Zofran. He does not want to have further IV fluids administered at this time. He is ready to go home. He states that he does not feel like he needs to urinate but he understands the importance of urinating every 3-4 hours at least. Patient is advised that if he is not able to hydrate with use of Zofran and if he is not urinating at least every 3-4 hours that he needs to return to the ER for immediate evaluation. And verbalized understanding. And request to be discharged. Lab Data 09/03/22 19:19 09/03/22 19:19 Laboratory Results WBC 4.6 10^3/uL (4.0-10.0) 09/03/22 19:19 RBC 5.02 10^6/uL (4.1-5.3) 09/03/22 19:19 Hgb 15.0 g/dL (11.7-16.6) 09/03/22 19:19 Hct 44.7 % (42.0-52.0) 09/03/22 19:19 MCV 89.0 fl (80-94) 09/03/22 19:19 MCH 29.9 pg (28.0-34.0) 09/03/22 19:19 MCHC 33.6 g/dL (30.0-36.0) 09/03/22 19:19 RDW 13.0 % (12.1-15.1) 09/03/22 19:19 Plt Count 213 10^3/cmm (130-400) 09/03/22 19:19 MPV 11.0 fL (7.4-10.4) H 09/03/22 19:19 Neut % (Auto) 57.2 % 09/03/22 19:19 Lymph % (Auto) 28.1 % 09/03/22 19:19 [place] % (Auto) 12.3 % 09/03/22 19:19 Eos % (Auto) 1.3 % 09/03/22 19:19 Baso % (Auto) 0.7 % 09/03/22 19:19 Neut # (Auto) 2.61 10^3/uL (1.8-7.7) 09/03/22 19:19 Lymph # (Auto) 1.3 10^3/uL (0.8-4.8) 09/03/22 19:19 [place] # (Auto) 0.6 10^3/uL (0.2-0.9) 09/03/22 19:19 Eos # (Auto) 0.1 10^3/uL (0.0-0.8) 09/03/22 19:19 Baso # (Auto) 0.0 10^3/uL (0.0-0.1) 09/03/22 19:19 Nucleated RBC % (auto) 0 % 09/03/22 19:19 Nucleated RBCs # 0.0 /100WBC 09/03/22 19:19 Sodium 136 mmol/L (136-145) 09/03/22 19:19 Potassium 3.7 mmol/L (3.5-5.1) 09/03/22 19:19 Chloride 100 mmol/L (98-107) 09/03/22 19:19 Carbon Dioxide 26 mmol/L (22-29) 09/03/22 19:19 Anion Gap 13.7 (5-19) 09/03/22 19:19 BUN 9 mg/dL (6-20) 09/03/22 19:19 Creatinine 0.7 mg/dL (0.7-1.2) 09/03/22 19:19 GFR Calculation 118.4 mL/min (90-130) 09/03/22 19:19 Glucose 71 mg/dL (65-115) 09/03/22 19:19 Calculated Osmolality 279 mOsm/kg (285-295) L 09/03/22 19:19 Calcium 9.2 mg/dL (8.5-10.5) 09/03/22 19:19 Total Bilirubin 0.3 mg/dL (0.15-1.2) 09/03/22 19:19 AST 30 U/L (0-40) 09/03/22 19:19 ALT 39 U/L (0-41) 09/03/22 19:19 Alkaline Phosphatase 83 U/L (40-130) 09/03/22 19:19 Total Protein 7.5 g/dL (6.6-8.7) 09/03/22 19:19 Albumin 4.0 g/dL (3.5-5.2) 09/03/22 19:19 Globulin 3.5 g/dL (1.3-4.6) 09/03/22 19:19 Urine Color Yellow (Yellow) 09/03/22 21:30 Urine Appearance Clear (CLEAR) 09/03/22 21:30 Urine pH 6 (5-7) 09/03/22 21:30 Ur Specific [place] 1.015 (1.005-1.030) 09/03/22 21:30 Urine Protein Neg (Negative) 09/03/22 21:30 Urine Glucose (UA) Norm (Normal) 09/03/22 21:30 Urine Ketones 1+ (Negative) H 09/03/22 21:30 Urine Blood Neg (Negative) 09/03/22 21:30 Urine Nitrate Negative (Negative) 09/03/22 21:30 Urine Bilirubin Neg (Negative) 09/03/22 21:30 Urine Urobilinogen Norm mg/dL (Negative) 09/03/22 21:30 Ur Leukocyte Esterase Negative (Negative) 09/03/22 21:30 Influenza Type A Ag positive (Negative) H 09/03/22 20:40 Influenza Type B Ag negative (Negative) 09/03/22 20:40 Discharge Plan Discharge Patient Disposition: Home Clinical Impression: Influenza A, Acute dehydration Condition: Stable Prescriptions: New ondansetron 4 mg tablet,disintegrating 4 mg PO Q8H PRN (Reason: nausea and vomiting) 3 Days Qty: 9 0RF Tamiflu 75 mg capsule 75 mg PO BID Qty: 9 0RF No Action amlodipine 5 mg tablet 10 mg PO DAILY celecoxib 200 mg capsule 200 mg PO BID PRN (Reason: pain) prednisone 20 mg tablet 20 mg PO DAILY Qty: 15 0RF Rx Instructions: 60mg on day 1,2,3 40mg on day 4,5 20mg on day 6,7 hydrocodone-acetaminophen 5-325 mg tablet 1 tab PO Q6H PRN (Reason: pain) 7 Days Qty: 30 0RF acetaminophen 650 mg tablet extended release 650 mg PO Q8H PRN (Reason: pain) Qty: 90 0RF doxycycline hyclate 100 mg capsule 100 mg PO BID Qty: 30 0RF (DME) MARIJUANA 0 .Route .MEDSUPPLY clotrimazole-betamethasone 1-0.05 % cream 1 applic topical BID Qty: 45 1RF Rx Instructions: apply for 3-4 weeks hydrocodone-acetaminophen 5-325 mg tablet 1 tab PO Q8H PRN (Reason: pain) 15 Days Qty: 40 0RF dicyclomine 10 mg capsule 10 mg PO QID Qty: 120 0RF dextromethorphan-guaifenesin 60-1,200 mg tablet extended release 12 hr 1 tab PO Q12H PRN (Reason: cough) Qty: 60 1RF esomeprazole magnesium 40 mg capsule,delayed release(DR/EC) 40 mg PO DAILY Qty: 90 1RF budesonide-formoterol [Symbicort] 80-4.5 mcg/actuation HFA aerosol inhaler 2 puff INHALATION BID Qty: 10.2 5RF albuterol sulfate 90 mcg/actuation HFA aerosol inhaler 2 puff INHALATION TID PRN (Reason: Shortness Of Breath) Qty: 8.5 3RF isosorbide mononitrate 30 mg tablet extended release 24 hr 30 mg PO QAM Qty: 90 1RF metoprolol succinate 25 mg tablet extended release 24 hr 25 mg PO DAILY Qty: 30 5RF mirtazapine [Remeron] 15 mg tablet 15 mg PO DAILY Qty: 90 1RF ondansetron 4 mg tablet,disintegrating 4 mg PO Q8H PRN (Reason: nausea and vomiting) Qty: 30 1RF tamsulosin [Flomax] 0.4 mg capsule 0.4 mg PO DAILY Qty: 90 1RF ipratropium-albuterol 0.5 mg-3 mg(2.5 mg base)/3 mL solution for nebulization 3 ml INHALATION TID PRN (Reason: Shortness Of Breath) Qty: 180 1RF cyclobenzaprine 10 mg tablet 10 mg PO TID PRN (Reason: muscle spasm) Qty: 90 1RF docusate sodium [DOK] 100 mg capsule 100 mg PO BID Qty: 60 5RF promethazine 25 mg tablet See Rx Instructions .ROUTE .COMPLEX Qty: 30 2RF Dose Instruction: TAKE 1 TABLET BY MOUTH EVERY 6 HOURS NEEDED FOR NAUSEA Rx Instructions: TAKE 1 TABLET BY MOUTH EVERY 6 HOURS NEEDED FOR NAUSEA clonazepam [Klonopin] 0.5 mg tablet 0.5 mg PO .qhs PRN (Reason: Anxiety & PTSD) 30 Days Qty: 45 3RF Rx Instructions: 1/2 tab in am & 1 tab hs prn, refill on or after 30-day interval gemfibrozil 600 mg tablet See Rx Instructions .ROUTE .COMPLEX Qty: 30 5RF Dose Instruction: TAKE 1 TABLET BY MOUTH AT BEDTIME FOR HIGH CHOLESTEROL Rx Instructions: TAKE 1 TABLET BY MOUTH AT BEDTIME FOR HIGH CHOLESTEROL Discharge Orders: Discharge ED (Routine); Ordered 09/03/22 Ordered By: Sravanthi New Referrals: Qamar Perez MD [Primary Care Provider] - Discharge Diet: Advance as tolerated Discharge Activity: Increase activity as tolerated Patient Instructions: Influenza (ED) Activity Restrictions/Additional Instructions: Start Tamiflu tomorrow your first dose was given in ER tonight. Make sure that you are staying hydrated. Use Zofran to help control the nausea and vomiting so that you are able to drink. Follow-up with primary care provider as needed. Return to ER for new or worsening symptoms. Coding Level of Care Code ED [employer] for [employer] Fwd Exam Detailed
[2022-09-03 20:58] LABS: Influenza A by IFA positive (Negative); Influenza B by IFA negative (Negative)
[2022-09-03 21:51] LABS: Add Urine Microscopic? NO; Charge for UA Resulting for Rev
[2022-09-03 22:31] LABS: Bilirubin Urine Neg (Negative); Blood Urine Neg (Negative); Glucose Urine UA Norm (Normal); Ketones Urine 1+ (Negative); Leukocyte Esterase Urine Negative (Negative); Nitrate Urine Negative (Negative); Protein Urine Neg (Negative); Specific Gravity, Urine 1.015 (1.005-1.030); Urine Appearance Clear (CLEAR); Urine Color Yellow (Yellow); Urobilinogen Urine Norm (Negative); pH Urine 6 (5-7)
[2022-09-03] MEDS: oseltamivir phosphate 75 mg Capsule PO (23:12)
== END 2022-09-04 | disposition home or self-care (01) ==
PROVIDERS: Emergency Provider Nurse Practitioner Family; PCP Family Medicine Adult Medicine
DX: J10.1 Influenza due to other identified influenza virus with other respiratory manifestations (principal); E86.0 Dehydration; R11.2 Nausea with vomiting, unspecified; J44.9 Chronic obstructive pulmonary disease, unspecified; Z87.891 Personal history of nicotine dependence
CPT/HCPCS: 80053; 81003; 85025; 87804; 96361; 96374; 99284; J2405; J7030

== ENCOUNTER → 2022-09-10 14:46 | Outpatient (BNVA) | payer MEDICAID, SELFPAY | PROVIDERS: PCP Family Medicine Adult Medicine; Visit Provider Orthopaedic Surgery | DX: M48.062 Spinal stenosis, lumbar region with neurogenic claudication (principal) | CPT/HCPCS: 99214 ==

== ENCOUNTER 2022-09-16 14:35 | Emergency (ER) | payer MEDICAID, SELFPAY ==
[2022-09-16 14:44] VITALS: BP 149/96; PULSE 81; RESP 16; TEMP 36.8; O2SAT 96; BMI 28.0
--- NOTE | 2022-09-16 15:00 | PC.NURSE ---
PT REPORTS TO THE ED REPORTING THAT HE FELL 8 FT OFF OF SCAFFOLDING PT LANDED ON HIS RIGHT SIDE WITH LADDER LANDING ON TOP OF HIM. PT REPORTS FEELING POPPING IN HIS WRIST FOREARM AND BICEP. PT CANNOT MOVE ARM IN ANY DIRECTION OR OPEN AND CLOSE HIS HAND. PT REPORTS NOT BEING ABLE TO MOVE HIS HEAD LEFT OR RIGHT. PT DID NOT LOSE CONSCIOUSNESS AND WAS AMBULATORY IMMEDIATELY AFTER THE FALL PT IS A/O X4 AT THIS TIME.
--- NOTE | 2022-09-16 15:09 | XRR_ITS ---
PROCEDURE INFORMATION: Exam: XR Right Shoulder Exam date and time: 09/16/2022 3:25 PM Age: 52 years old Clinical indication: Injury or trauma; Fall; Blunt trauma (contusions or hematomas); Shoulder; Right; Additional info: Fall injury TECHNIQUE: Imaging protocol: Radiologic exam of the Right shoulder. Views: 2 or more views. Total images: 1 COMPARISON: CR XR shoulder RT min 2V* [id number] 05/07/2022 4:59 PM FINDINGS: Bones/joints: Normal. Soft tissues: Normal. XR/XR shoulder RT min 2V* [id number] IMPRESSION: No acute findings.
--- NOTE | 2022-09-16 15:09 | XRR_ITS ---
PROCEDURE INFORMATION: Exam: XR Lumbosacral Spine Exam date and time: 09/16/2022 3:32 PM Age: 52 years old Clinical indication: Injury or trauma; Fall; Blunt trauma (contusions or hematomas); Injury details: Patient says he was on a walk board that was about 8 feet in the air. He fell off of board and hit bottom of the ladder. Patient endorses hitting his head but denies any loss of consciousness. He says that he landed mostly on his right arm and felt a pop in his right upper arm and right wrist. ; Additional info: Fall injury with back pain TECHNIQUE: Imaging protocol: Radiologic exam of the lumbosacral spine. Views: 2 or 3 views. COMPARISON: MR lumbar spine wo con* [id number] 09/01/2022 8:26 AM FINDINGS: Bones/joints: Mild L4-L5 and moderate L5-S1 disc space narrowing and minimal facet arthropathy similar to most recent MRI exam. Multilevel minimal endplate spurring. No acute fracture or subluxation. Soft tissues: Unremarkable. Other findings: Three views submitted. XR/XR lumbar spine 2-3V* [id number] IMPRESSION: No acute findings.
--- NOTE | 2022-09-16 15:09 | CTR_ITS ---
PROCEDURE INFORMATION: Exam: CT Cervical Spine Without Contrast Exam date and time: 09/16/2022 3:45 PM Age: 52 years old Clinical indication: Injury or trauma; Fall; Blunt trauma; Additional info: Fall with neck pain TECHNIQUE: Imaging protocol: Computed tomography of the cervical spine without contrast. Radiation optimization: All CT scans at this facility use at least one of these dose optimization techniques: automated exposure control; mA and/or kV adjustment per patient size (includes targeted exams where dose is matched to clinical indication); or iterative reconstruction. COMPARISON: MR cervical spin wo con* [id number] 06/30/2022 1:09 PM RADIATION DOSE METRICS: Total DLP (mGy-cm): 203.57 FINDINGS: Bones/joints: No acute fracture. Normal alignment. C2-C3: No significant disc protrusion. No severe spinal canal stenosis. No significant neural foraminal narrowing. C3-C4: No significant disc protrusion. No severe spinal canal stenosis. No significant neural foraminal narrowing. C4-C5: No significant disc protrusion. No severe spinal canal stenosis. No significant neural foraminal narrowing. C5-C6: No significant disc protrusion. No severe spinal canal stenosis. No significant neural foraminal narrowing. C6-C7: No significant disc protrusion. No severe spinal canal stenosis. No significant neural foraminal narrowing. C7-T1: No significant disc protrusion. No severe spinal canal stenosis. No significant neural foraminal narrowing. Mastoid air cells: Left mastoid air cell partial opacification, similar to prior exam may reflect a mild infectious or inflammatory process. Lungs: Lung apices are normal. Soft tissues: Unremarkable. CT/CT cervical spin wo con* [id number] IMPRESSION: Negative for fracture or dislocation.
--- NOTE | 2022-09-16 15:09 | XRR_ITS ---
PROCEDURE INFORMATION: Exam: XR Right Wrist Exam date and time: 09/16/2022 3:27 PM Age: 52 years old Clinical indication: Injury or trauma; Fall; Blunt trauma (contusions or hematomas); Injury details: Patient says he was on a walk board that was about 8 feet in the air. He fell off of board and hit bottom of the ladder. Patient endorses hitting his head but denies any loss of consciousness. He says that he landed mostly on his right arm and felt a pop in his right upper arm and right wrist. ; Additional info: Fall injury TECHNIQUE: Imaging protocol: Radiologic exam of the Right wrist. Views: 3 or more views. COMPARISON: CR XR hand RT min 3V* [id number] 03/30/2022 5:15 PM FINDINGS: Bones/joints: There is a subtle transverse sclerosis across the distal radius metaphysis which may represent a healing/healed fracture. No discrete lucent fracture line or cortical displacement is otherwise identified. No dislocation. Slight proximal 5th metacarpal deformity may be related to old healed injury. Soft tissues: Normal. Other findings: Three views submitted. XR/XR wrist RT min 3V* [id number] IMPRESSION: 1. Transverse sclerosis at the distal radius. See discussion above. 2. No acute findings otherwise. 3. If there is a clinical concern for scaphoid fracture or other occult injury, followup/additional assessment may also be considered.
--- NOTE | 2022-09-16 15:09 | XRR_ITS ---
PROCEDURE INFORMATION: Exam: XR Right Elbow Exam date and time: 09/16/2022 3:29 PM Age: 52 years old Clinical indication: Injury or trauma; Fall; Blunt trauma (contusions or hematomas); Injury details: Patient says he was on a walk board that was about 8 feet in the air. He fell off of board and hit bottom of the ladder. Patient endorses hitting his head but denies any loss of consciousness. He says that he landed mostly on his right arm and felt a pop in his right upper arm and right wrist. ; Additional info: Fall injury TECHNIQUE: Imaging protocol: Radiologic exam of the Right elbow. Views: 3 or more views. COMPARISON: CR XR wrist RT min 3V* [id number] 09/16/2022 3:27 PM FINDINGS: Bones/joints: A subtle longitudinal lucency is seen in the radial head/neck on the 1st image. This may represent a prominent trabecular channel/normal variant. Nondisplaced fracture is less likely as there is no obvious elbow joint effusion. Otherwise no acute fracture dislocation. Soft tissues: Normal. Other findings: Three views submitted. XR/XR elbow RT min 3V* [id number] IMPRESSION: Lucency in the proximal radius as described. No acute findings otherwise.
--- NOTE | 2022-09-16 15:09 | CTR_ITS ---
PROCEDURE INFORMATION: Exam: CT Head Without Contrast Exam date and time: 09/16/2022 3:41 PM Age: 52 years old Clinical indication: Injury or trauma; Fall; Blunt trauma (contusions or hematomas); Additional info: Fall from 8ft and hit head, denies loc TECHNIQUE: Imaging protocol: Computed tomography of the head without contrast. Radiation optimization: All CT scans at this facility use at least one of these dose optimization techniques: automated exposure control; mA and/or kV adjustment per patient size (includes targeted exams where dose is matched to clinical indication); or iterative reconstruction. COMPARISON: CT head wo con* [id number] 05/07/2022 5:01 PM RADIATION DOSE METRICS: Total DLP (mGy-cm): 1149.18 FINDINGS: Brain: Normal. No hemorrhage. Unremarkable white matter. No mass effect. Cerebral ventricles: No ventriculomegaly. Paranasal sinuses: Paranasal sinus mild mucosal thickening. Mastoid air cells: Left mastoid air cell partial opacification, similar to prior exam may reflect a mild infectious or inflammatory process. Bones/joints: Unremarkable. No acute fracture. Soft tissues: Unremarkable. CT/CT head wo con* [id number] IMPRESSION: 1. Negative for intracranial hemorrhage or mass effect. 2. Paranasal sinus mild mucosal thickening. 3. Left mastoid air cell partial opacification, similar to prior exam may reflect a mild infectious or inflammatory process.
--- NOTE | 2022-09-16 15:11 | W.ED.FALL ---
HPI - Fall General: Chief Complaint: Fall Stated Complaint: fall Time Seen by Provider: 09/16/22 14:55 History of Present Illness: Patient is a 52-year-old male who comes to the ED after a fall. Patient says he was on a walk board that was about 8 feet in the air. He fell off of board and hit bottom of the ladder. Patient endorses hitting his head but denies any loss of consciousness. He says that he landed mostly on his right arm and felt a pop in his right upper arm and right wrist. He was able to stand up on his own and was ambulatory immediately afterwards. He reports feeling a little confused, dizzy and has a headache. He also has some right knee pain as well. He now has 10 out of 10 pain and states that most of his pain is in his right arm. Associated symptoms-after fall: Reports headache(s); Denies abdominal pain, chest pain, hematuria or neck pain Review of Systems Const: Denies: fever(s), chills or fatigue Eyes: Denies: change in vision or eye discomfort ENMT: Denies: throat pain, odynophagia, nasal discharge or nasal congestion Card: Denies: chest pain, palpitations, edema, swelling of feet/ankles, dyspnea on exertion or orthopnea Resp: Denies: dyspnea, productive cough or non-productive cough GI: Denies: abdominal pain, nausea, vomiting, diarrhea, constipation or hematochezia : Denies: flank pain, difficulty urinating, dysuria or hematuria Musc: Reports: extremity pain (right upper arm down to wrist. right knee pain); Denies: neck pain, back pain or extremity swelling Skin/Breast: Denies: rash or new lesions Neuro: Reports: headache(s); Denies: numbness in extremities or weakness in extremities [facility] ED PFSH: Medical History Anxiety PTSD and Panic Arm paresthesia, right Boxer's metacarpal fracture, neck, closed Chest pain Chronic pain due to injury Colon polyps Conversion disorder COPD (chronic obstructive pulmonary disease) Degenerative disc disease Diverticulosis large intestine w/o perforation or abscess w/bleeding Esophageal cancer Fibromyalgia GERD (gastroesophageal reflux disease) Helicobacter pylori gastritis Hematuria Hiatal hernia Hiatal hernia History of tumor Removed from Groin Hyperlipidemia Hypertension Jock itch LAD (lymphadenopathy), inguinal Obstructive sleep apnea 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 sides of body Photosensitization due to sunlight PUD (peptic ulcer disease) Rectal cancer Not clear, no records Sebaceous cyst Seizure disorder Ventral hernia Surgical History H/O abdominal surgery H/O colonoscopy with Polypectomy H/O sinus surgery History of colon surgery History of esophageal surgery History of esophagogastroduodenoscopy (EGD) History of umbilical hernia repair History of vasectomy S/P carpal tunnel release Rt side in 2019 and again 03/25/2022 Family History Family/Other Cancer Family history of breast cancer, colon cancer especially maternal side Father CAD (coronary artery disease) Hyperlipidemia Hypertension Cancer prostate Mother Hypertension Social History Smoking and tobacco status: former smoker Second hand smoke exposure: No Alcohol intake: former Former alcohol use details: 15 years Desire information about alcohol rehabilitation?: No Desire information about substance/drug rehabilitation?: No Marital status: Current occupational status: disabled History of recent travel: No Physical Exam Const: COMMON NORMALS: patient oriented x3 HENMT: COMMON NORMALS: normocephalic HEAD & SCALP: normocephalic MOUTH: Normal oral and palatal mucosa present THROAT: posterior oropharynx normal and uvula midline Eye: COMMON NORMALS: Equal, round and reactive pupils present and EOMs intact bilaterally GENERAL EYE: appearance normal, both eyes and all related structures PUPIL: Yes Equal, round and reactive pupils present Neck/C-Spine: COMMON NORMALS: supple GENERAL: Yes normal visual inspection CERVICAL SPINE: Yes Paracervical muscle tenderness bilateral Lymph: LYMPHATIC: no lymphadenopathy noted Resp: COMMON NORMALS: normal respiratory effort, No retractions, No use of accessory muscles and clear to auscultation bilaterally AUSCULTATION: clear to auscultation bilaterally Cardio: COMMON NORMALS: regular rate, regular rhythm, S1 normal heart sound present, S2 normal heart sound present, No gallops present (Cardio), No clicks present (Cardio), No murmurs present (Cardio) and Peripheral pulses 2+ throughout RATE: regular rate RHYTHM: regular rhythm HEART SOUNDS: S1 normal heart sound present and S2 normal heart sound present PERIPHERAL PULSES: Peripheral pulses 2+ throughout GI: COMMON NORMALS: Normal to inspection, nondistended, normoactive bowel sounds present, Soft to palpation, non-tender and no masses PALPATION: Yes Soft to palpation : COMMON NORMALS: Yes no CVA tenderness BLADDER/KIDNEY EXAM: Yes no CVA tenderness Back/Pelvis: COMMON NORMALS: no CVA tenderness Extremity: NARRATIVE EXTREMITY EXAM: Patient right arm?tenderness over radial aspect of wrist and right upper arm and shoulder. Limited range of motion in wrist and shoulder due to pain. Neurovascular tact distally. No visible deformity noted. GENERAL: Yes normal exam except as noted Neuro: COMMON NORMALS: patient oriented x3, CN's II-XII intact bilaterally, moves all extremities, no focal motor deficits and no sensory deficits noted SENSORY EXAM: Yes extremities (intact) MOTOR EXAM: 5/5 motor strength present throughout Skin: COMMON NORMALS: no rashes or lesions noted GENERAL SKIN EXAM: no rashes or lesions noted and dry skin Course Vital Signs: Vital signs: Vital Signs Temperature 98.2 F 09/16/22 14:44 Pulse Rate 66 09/16/22 16:44 Respiratory Rate 14 09/16/22 17:08 Blood Pressure 146/87 09/16/22 16:44 Pulse Oximetry 96 09/16/22 16:44 Oxygen Delivery Me thod 09/16/22 14:44 MDM - Fall Medical Decision Making Patient is a 52-year-old male who comes to the ED after a fall. Patient says he was on a walk board that was about 8 feet in the air. He fell off of board and hit bottom of the ladder. Patient endorses hitting his head but denies any loss of consciousness. He says that he landed mostly on his right arm and felt a pop in his right upper arm and right wrist. He was able to stand up on his own and was ambulatory immediately afterwards. He reports feeling a little confused, dizzy and has a headache. He also has some right knee pain as well. He now has 10 out of 10 pain and states that most of his pain is in his right arm. Vitals are stable. Neuro exam shows no deficits. Patient right arm?tenderness over radial aspect of wrist and right upper arm and shoulder. Limited range of motion in wrist and shoulder due to pain. Neurovascular tact distally. No visible deformity noted. Right shoulder, right wrist and right elbow x-rays all showed no acute findings or fractures. CT of head and cervical spine showed no acute findings. Given patient's fall injury and exam findings on his right arm, pt placed in a volar splint for the wrist and shoulder sling. Order placed with case management for patient to be referred to Ortho for follow-up. Patient diagnosed with fall with injury, right wrist injury and injury of right upper arm and sent home with a prescription for couple hydrocodone to help with acute pain. Return to ED precautions given. Patient understood and agreed with plan. Lab Data Radiology Impressions Cervical Spine CT 09/16/22 15:09 IMPRESSION: Negative for fracture or dislocation. Elbow X-Ray 09/16/22 15:09 IMPRESSION: Lucency in the proximal radius as described. No acute findings otherwise. Head CT 09/16/22 15:09 IMPRESSION: 1. Negative for intracranial hemorrhage or mass effect. 2. Paranasal sinus mild mucosal thickening. 3. Left mastoid air cell partial opacification, similar to prior exam may reflect a mild infectious or inflammatory process. Lumbar Spine X-Ray 09/16/22 15:09 IMPRESSION: No acute findings. Wrist X-Ray 09/16/22 15:09 IMPRESSION: 1. Transverse sclerosis at the distal radius. See discussion above. 2. No acute findings otherwise. 3. If there is a clinical concern for scaphoid fracture or other occult injury, followup/additional assessment may also be considered. Knee X-Ray 09/16/22 15:16 IMPRESSION: No acute fracture. Discharge Plan Discharge Patient Disposition: Home Clinical Impression: Fall with injury Qualifiers: Encounter type: initial encounter Qualified Code(s): W19.XXXA - Unspecified fall, initial encounter Right wrist injury Qualifiers: Encounter type: initial encounter Qualified Code(s): S69.91XA - Unspecified injury of right wrist, hand and finger(s), initial encounter Injury of right upper arm Qualifiers: Encounter type: initial encounter Qualified Code(s): S49.91XA - Unspecified injury of right shoulder and upper arm, initial encounter Condition: Stable Prescriptions: No Action amlodipine 5 mg tablet 10 mg PO DAILY celecoxib 200 mg capsule 200 mg PO BID PRN (Reason: pain) prednisone 20 mg tablet 20 mg PO DAILY Qty: 15 0RF Rx Instructions: 60mg on day 1,2,3 40mg on day 4,5 20mg on day 6,7 hydrocodone-acetaminophen 5-325 mg tablet 1 tab PO Q6H PRN (Reason: pain) 7 Days Qty: 30 0RF acetaminophen 650 mg tablet extended release 650 mg PO Q8H PRN (Reason: pain) Qty: 90 0RF doxycycline hyclate 100 mg capsule 100 mg PO BID Qty: 30 0RF (DME) MARIJUANA 0 .Route .MEDSUPPLY clotrimazole-betamethasone 1-0.05 % cream 1 applic topical BID Qty: 45 1RF Rx Instructions: apply for 3-4 weeks hydrocodone-acetaminophen 5-325 mg tablet 1 tab PO Q8H PRN (Reason: pain) 15 Days Qty: 40 0RF dicyclomine 10 mg capsule 10 mg PO QID Qty: 120 0RF dextromethorphan-guaifenesin 60-1,200 mg tablet extended release 12 hr 1 tab PO Q12H PRN (Reason: cough) Qty: 60 1RF esomeprazole magnesium 40 mg capsule,delayed release(DR/EC) 40 mg PO DAILY Qty: 90 1RF budesonide-formoterol [Symbicort] 80-4.5 mcg/actuation HFA aerosol inhaler 2 puff INHALATION BID Qty: 10.2 5RF albuterol sulfate 90 mcg/actuation HFA aerosol inhaler 2 puff INHALATION TID PRN (Reason: Shortness Of Breath) Qty: 8.5 3RF isosorbide mononitrate 30 mg tablet extended release 24 hr 30 mg PO QAM Qty: 90 1RF metoprolol succinate 25 mg tablet extended release 24 hr 25 mg PO DAILY Qty: 30 5RF mirtazapine [Remeron] 15 mg tablet 15 mg PO DAILY Qty: 90 1RF ondansetron 4 mg tablet,disintegrating 4 mg PO Q8H PRN (Reason: nausea and vomiting) Qty: 30 1RF tamsulosin [Flomax] 0.4 mg capsule 0.4 mg PO DAILY Qty: 90 1RF ipratropium-albuterol 0.5 mg-3 mg(2.5 mg base)/3 mL solution for nebulization 3 ml INHALATION TID PRN (Reason: Shortness Of Breath) Qty: 180 1RF cyclobenzaprine 10 mg tablet 10 mg PO TID PRN (Reason: muscle spasm) Qty: 90 1RF docusate sodium [DOK] 100 mg capsule 100 mg PO BID Qty: 60 5RF promethazine 25 mg tablet See Rx Instructions .ROUTE .COMPLEX Qty: 30 2RF Dose Instruction: TAKE 1 TABLET BY MOUTH EVERY 6 HOURS NEEDED FOR NAUSEA Rx Instructions: TAKE 1 TABLET BY MOUTH EVERY 6 HOURS NEEDED FOR NAUSEA clonazepam [Klonopin] 0.5 mg tablet 0.5 mg PO .qhs PRN (Reason: Anxiety & PTSD) 30 Days Qty: 45 3RF Rx Instructions: 1/2 tab in am & 1 tab hs prn, refill on or after 30-day interval gemfibrozil 600 mg tablet See Rx Instructions .ROUTE .COMPLEX Qty: 30 5RF Dose Instruction: TAKE 1 TABLET BY MOUTH AT BEDTIME FOR HIGH CHOLESTEROL Rx Instructions: TAKE 1 TABLET BY MOUTH AT BEDTIME FOR HIGH CHOLESTEROL Tamiflu 75 mg capsule 75 mg PO BID Qty: 9 0RF Discharge Orders: Discharge ED (Routine); Ordered 09/16/22 Ordered By: Paco Mondragon Referrals: Qamar Perez MD [Primary Care Provider] - Discharge Diet: Regular Discharge Activity: Limit activity as instructed Patient Instructions: Opioid Safety Activity Restrictions/Additional Instructions: Follow-up with medical provider as directed. Case management should be contacting in the next several days set up an appointment with Ortho for follow-up. Wear sling and keep splint on and dry until seen by Ortho. Take medications as prescribed. Return to the ER or your medical provider if condition worsens. Please read and understand discharge instructions. Thank you for choosing [facility] for your healthcare needs today. Please realize this is an emergency room and that we are providing you with a medical screening exam and this may not be complete and all inclusive of all the testing and or work up that you may need to determine your ailment or severity of your illness. It is very important that you follow up as instructed or that you return to the Emergency Department should you have concerns or if your condition changes or worsens in any way. Coding Level of Care Code ED Cinema Or Theatre Manager for Rob May Exam Comprehensive
--- NOTE | 2022-09-16 15:16 | XRR_ITS ---
PROCEDURE INFORMATION: Exam: XR Right Knee Exam date and time: 09/16/2022 3:36 PM Age: 52 years old Clinical indication: Injury or trauma; Fall; Blunt trauma; Knee; Injury details: Patient says he was on a walk board that was about 8 feet in the air. He fell off of board and hit bottom of the ladder. Patient endorses hitting his head but denies any loss of consciousness. He says that he landed mostly on his right arm and felt a pop in his right upper arm and right wrist. ; Additional info: Fall injury TECHNIQUE: Imaging protocol: Radiologic exam of the Right knee. Views: 3 views. COMPARISON: CR XR knees AP WB w BI lmt ORTH 05/12/2022 11:19 AM FINDINGS: Bones/joints: No acute fracture dislocation. Trace knee joint effusion. Minimal spurring of the patella and medial compartment consistent with early degenerative disease. Well maintained joint spaces on this nonweightbearing exam. Soft tissues: Normal. Other findings: Three views submitted. XR/XR knee RT 3V* [id number] IMPRESSION: No acute fracture.
[2022-09-16 16:05] VITALS: RESP 15
[2022-09-16] MEDS: morphine 4 mg/mL SDV 1 mL IM (16:05)
[2022-09-16] MEDS: ondansetron 2 mg/ML SDV 2 mL 4 MG IM (16:05)
[2022-09-16 16:44] VITALS: BP 146/87; PULSE 66; RESP 14; O2SAT 96
[2022-09-16 17:08] VITALS: RESP 14
[2022-09-16] MEDS: oxyCODONE-APAP 5-325 mg Tablet 1 TAB PO (17:08)
--- NOTE | 2022-09-17 09:50 | DCPLANNER ---
Addendum entered by Sita Parker 09/22/22 12:46: Patient had a follow up appointment scheduled with ortho - patient did attend appointment. Original Note: manager deli had message to schedule a follow up appointment for patient with ortho. manager deli sent patients information to the front office staff at ortho. Patients information will be printed and reviewed. Clinic will call patient with appointment information.
== END 2022-09-16 17:50 | disposition home or self-care (01) ==
PROVIDERS: Emergency Provider Physician Assistant; PCP Family Medicine Adult Medicine
DX: S69.91XA Unspecified injury of right wrist, hand and finger(s), initial encounter (principal); S49.91XA Unspecified injury of right shoulder and upper arm, initial encounter; W17.89XA Other fall from one level to another, initial encounter; Z87.891 Personal history of nicotine dependence; J44.9 Chronic obstructive pulmonary disease, unspecified; Z85.01 Personal history of malignant neoplasm of esophagus; E78.5 Hyperlipidemia, unspecified; I10 Essential (primary) hypertension; Z85.048 Personal history of other malignant neoplasm of rectum, rectosigmoid junction, and anus
CPT/HCPCS: 29125; 70450; 72100; 72125; 73030; 73080; 73110; 73562; 96372; 99285; J2270; J2405

== ENCOUNTER → 2022-09-18 09:14 | Outpatient (BNVA) | payer MEDICAID, SELFPAY | PROVIDERS: PCP Family Medicine Adult Medicine; Referring Provider Physician Assistant; Visit Provider Student in an Organized Health Care Education/Training Program | DX: S49.91XA Unspecified injury of right shoulder and upper arm, initial encounter (principal); W11.XXXA Fall on and from ladder, initial encounter; S69.91XA Unspecified injury of right wrist, hand and finger(s), initial encounter | CPT/HCPCS: 73110 ==

== ENCOUNTER 2022-09-18 10:06 | Outpatient (CLI) | payer MEDICAID, SELFPAY | END 2022-09-18 10:07 | disposition home or self-care (01) | LOC: SPT 10:07 | PROVIDERS: PCP Family Medicine Adult Medicine; Visit Provider Student in an Organized Health Care Education/Training Program | DX: Z46.89 Encounter for fitting and adjustment of other specified devices (principal); S69.91XS Unspecified injury of right wrist, hand and finger(s), sequela; X58.XXXS Exposure to other specified factors, sequela | CPT/HCPCS: 97760; 99204; L3984 ==

== ENCOUNTER 2022-09-30 10:18 | Day surgery (SDC) | payer MEDICAID, SELFPAY ==
[2022-09-23 09:18] VITALS: BMI 27.8
--- NOTE | 2022-09-23 10:10 | ANES.PREANE2 ---
Pre-Anesthetic Assessment Height/Weight: Height 1.75 m Weight 85.729 kg Preop Diagnosis: Bleeding per rectum Operation Date: 09/30/22 09:00 Proposed Procedures p Lumbar Spine Decompression L5/S1/07978(Not Applicable) - Roque Leyva DO Familial anesthetic complications: none Was Beta Ze taken within 24 hours: Yes Was Clonidine taken within 24 hours: N/A Social Tobacco and No alcohol Exam alert, oriented x 3 and regular rate & rhythm Airway Submandibular: within normal limits Cervical ROM: within normal limits Mallampati: Class II Dentition: false Comments: Comments: [facility] Chronic Obstructive Pulmonary Disease and Sleep Apnea CV/HEM Hypertension GI Gastroesophageal Reflux Disease Metabolic Steroids Musc/skel Fibromyalgia, Lower Back Pain and Osteoarthritis/DJD Neuropsych Anxiety, Depression and Seizure Anesthetic Plan ASA status: 3 Anesthesia: General Medications/Allergies Home Medications Medication Instructions Recorded Confirmed Last Taken Type dicyclomine 10 mg capsule 10 mg PO QID #120 caps 12/06/20 09/23/22 09/23/22 Rx amlodipine 5 mg tablet 10 mg PO DAILY 02/11/22 09/18/22 Unknown History celecoxib 200 mg capsule 200 mg PO BID PRN pain 05/05/22 09/23/22 09/23/22 History esomeprazole magnesium 40 mg 40 mg PO DAILY #90 caps 07/07/22 09/23/22 09/23/22 Rx capsule,delayed release albuterol sulfate 90 mcg/actuation 2 puff inhalation TID PRN 07/25/22 09/23/22 09/23/22 Rx aerosol inhaler Shortness Of Breath #8.5 grams budesonide-formoterol HFA 80 2 puff inhalation BID #10.2 grams 07/25/22 09/23/22 09/22/22 Rx mcg-4.5 mcg/actuation aerosol inhaler (Symbicort) ipratropium 0.5 mg-albuterol 3 mg 3 ml inhalation TID PRN Shortness 07/25/22 09/23/22 09/23/22 Rx (2.5 mg base)/3 mL nebulization Of Breath #180 mL soln isosorbide mononitrate 30 mg 30 mg PO QAM chest pain #90 tabs 07/25/22 09/23/22 09/23/22 Rx tablet,extended release 24 hr metoprolol succinate 25 mg 25 mg PO DAILY #30 tabs 07/25/22 09/23/22 09/23/22 Rx tablet,extended release 24 hr mirtazapine 15 mg tablet (Remeron) 15 mg PO DAILY sleep and anxiety 07/25/22 09/23/22 09/22/22 Rx #90 tabs tamsulosin 0.4 mg capsule (Flomax) 0.4 mg PO DAILY #90 caps 07/25/22 09/23/22 09/23/22 Rx prednisone 20 mg tablet 20 mg PO DAILY #15 tabs 08/04/22 09/23/22 09/23/22 Rx MARIJUANA 08/10/22 09/18/22 Unknown History doxycycline hyclate 100 mg capsule 100 mg PO BID groin pain #30 caps 08/13/22 09/23/22 09/23/22 Rx docusate sodium 100 mg capsule 100 mg PO BID #60 caps 08/14/22 09/23/22 09/23/22 Rx (DOK) promethazine 25 mg tablet See Rx Instructions .Route 08/18/22 09/23/22 Unknown Rx .COMPLEX #30 tabs clonazepam 0.5 mg tablet (Klonopin) 0.5 mg PO .qhs PRN Anxiety & PTSD 08/27/22 09/23/22 09/23/22 Rx 30 days #45 tabs clotrimazole-betamethasone 1 1 applic topical BID groin rash 08/28/22 09/23/22 09/16/22 Rx %-0.05 % topical cream #45 grams ondansetron 4 mg disintegrating 4 mg PO Q8H PRN nausea and 09/17/22 09/23/22 09/22/22 Rx tablet vomiting #30 tabs fast form thumb spica #1 ea 09/18/22 09/18/22 Unknown Rx methylprednisolone 4 mg tablets in See Rx Instructions PO PER PKG DIR 09/18/22 09/23/22 09/23/22 Rx a dose pack (Medrol (Harsha)) #21 ea Allergies Allergy/AdvReac Type Severity Reaction Status Date / Time tramadol Allergy Intermediate Unknown Verified 09/23/22 09:05 Penicillins Allergy Unknown Unknown Verified 09/23/22 09:05 ciprofloxacin [From Cipro] Allergy ALGY-Hives Verified 09/23/22 09:05 codeine Allergy ADR-Vomitin Verified 09/23/22 09:05 g [facility] Anesthesia Medical History Anxiety PTSD and Panic Arm paresthesia, right Boxer's metacarpal fracture, neck, closed Chest pain Chronic pain due to injury Colon polyps Conversion disorder COPD (chronic obstructive pulmonary disease) Degenerative disc disease Diverticulosis large intestine w/o perforation or abscess w/bleeding Esophageal cancer Fibromyalgia GERD (gastroesophageal reflux disease) Helicobacter pylori gastritis Hematuria Hiatal hernia Hiatal hernia History of tumor Removed from Groin Hyperlipidemia Hypertension Jock itch LAD (lymphadenopathy), inguinal Obstructive sleep apnea 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 sides of body Photosensitization due to sunlight PUD (peptic ulcer disease) Rectal cancer Not clear, no records Sebaceous cyst Seizure disorder Ventral hernia Surgical History H/O abdominal surgery H/O colonoscopy with Polypectomy H/O sinus surgery History of colon surgery History of esophageal surgery History of esophagogastroduodenoscopy (EGD) History of umbilical hernia repair History of vasectomy S/P carpal tunnel release Rt side in 2019 and again 03/25/2022 Family History Family/Other Cancer Family history of breast cancer, colon cancer especially maternal side Father CAD (coronary artery disease) Hyperlipidemia Hypertension Cancer prostate Mother Hypertension Social History Smoking and tobacco status: former smoker Second hand smoke exposure: No Alcohol intake: former Former alcohol use details: 15 years Desire information about alcohol rehabilitation?: No Desire information about substance/drug rehabilitation?: No Marital status: Current occupational status: disabled History of recent travel: No Data Anesthesia Cardiac Studies: Echocardiogram 12/18/21 Echocardiogram Limited Views 07/28/22 Echocardiogram Ultrasound 11/03/20 Stress Echocardiogram 07/28/22
[2022-09-30] VITALS (15 sets, daily range): BP systolic 98–142; BP diastolic 54–90; PULSE 54–77; RESP 12–18; TEMP 36.3–36.9; O2SAT 92–99
--- NOTE | 2022-09-30 | XR_ITS ---
WS: [id number] Lumbar spine, C-arm fluoroscopy, 09/30/2022 Clinical Data: left sided l5-s1 decompression. OR Pic Comparison: Lumbar spine, 09/16/2022. Findings: Dr. Leyva performed a posterior lumbar decompression. XR/XR lumbar spine 1V [id number] Impression: Posterior lumbar decompression.
[2022-09-30] MEDS: sodium chloride 0.9% 1,000 ML 30 ML IV ×2 (11:43→13:25)
--- NOTE | 2022-09-30 11:58 | P.ANESUD_ITS ---
Pre-Anesthetic Update Pre-Anesthetic Assessment: Date of Surgery/Procedure: 09/30/22 Preop Dasha gnosis: Lumbar stenosis with neurogenic claudication Proposed Procedure: Operation Date: 09/30/22 12:00 Proposed Procedures p Lumbar Spine Decompression L5/S1/62580(Not Applicable) - Roque Leyva, DO Any changes to Pre-Anesthetic Assessment?: No Last Intake: Intake Last Liquid Date 09/29/22 Last Liquid Time 22:00 Last Solid Date 09/29/22 Last Solid Time 22:00 Vitals: Temperature 98.5 F 09/30/22 11:19 Temperature Source Temporal Artery S can 09/30/22 11:19 Pulse Rate 77 09/30/22 11:19 Respiratory Rate 16 09/30/22 11:19 Blood Pressure 142/85 09/30/22 11:19 Blood Pressure Criss n 104 09/30/22 11:19 Pulse Oximetry 96 09/30/22 11:19 Oxygen Delivery Me thod 09/30/22 11:30 Exam: Pre-Anes Outpt Exam: alert, oriented x 3, clear to auscultation bilaterally and regular rate & rhythm Cardiac Studies: Echocardiogram 12/18/21 Echocardiogram Limited Views 07/28/22 Echocardiogram Ultrasound 11/03/20 Stress Echocardiogram 07/28/22
[2022-09-30] MEDS: diphenhydrAMINE 50 mg/mL SDV 1mL 12.5 MG IVP (12:01)
[2022-09-30] MEDS: ondansetron 2 mg/ML SDV 2 mL 4 MG IVP ×2 (12:04→15:09)
[2022-09-30] MEDS: midazolam 1 mg/mL INJ 2 mL 2 MG IVP (12:05)
--- NOTE | 2022-09-30 12:46 | W.PM.OPSUD ---
Surgery/Procedure H&P Update DATE OF PROCEDURE: September 30, 2022 DATE H&P PERFORMED: 09/10/22 H&P UPDATE INFORMATION: I have reviewed H&P completed within last 30 days, I have examined patient prior to procedure and No changes to prior documentation PREOP DIAGNOSIS: Lumbar stenosis with neurogenic claudication PLANNED PROCEDURE: Operation Date: 09/30/22 12:00 Proposed Procedures p Lumbar Spine Decompression L5/S1/15381(Not Applicable) - Roque Leyva DO
[2022-09-30] MEDS: clindamycin 900 MG/50 ML PREMIX 100 MG IV (13:30)
--- NOTE | 2022-09-30 14:33 | PM.OP ---
Operative Report Date of procedure: September 30, 2022 Pre-op diagnosis: Preop Diagnosis Lumbar stenosis with neurogenic claudication Post-op diagnosis: same Procedure done: 1. L5/S1 laminectomy with partial facetectomy Surgeon: Roque Leyva Family Service Caseworker: Orlin Pierson Family Service Caseworker: The rn medical surgical, DENZEL Armijo was needed for his expertise under the microscope. He was important and necessary throughout the procedure to complete in a safe and timely manner. He assisted with patient positioning prepping and draping tissue retraction suctioning of the operative field protection of the dural sac and tissue closure Estimated blood loss (mL): 5 Procedure: 1. L5/S1 laminectomy with partial facetectomy Patient is brought to the operative suite. After undergoing anesthesia they are placed in the prone position. All areas of impingement are well padded. Patient is then prepped and draped in the normal sterile fashion. A skin incision is made over the L5/S1 level. This is confirmed under c-arm guidance. A series of dilators are passed and the tubular retractor is docked on the L5 lamina. A bovie is used to clear the soft tissue off the lamina and the L 5/S1 facet joint. A high speed sagrario is then used to perform the laminectomy and take down the medial aspect of the L 5/S1 facet joint. A kerrison rongeure was then used to take down the remaining lamina and smooth the edge of the laminectomy up to the point where the ligamentum flavum attaches. Attention was then brought to the medial aspect of the facet joint. The remaining medial aspect of the superior and inferior aspect of the facet joint were taken down with the kerrison from the pedicle of L5 to S1. The facet joint had significant hypertrophy. Attention was then brought to the Ligamentum Flavum. The ligament was taken down from the lamina of L5 to S1 and out medially to the remaining facet joint. The ligament was thick. The dura was then exposed. The dura was in good repair. The L5 nerve was then traced with a curette out the L5/S1 foramen and found to be adequately decompressed. The S1 nerve was traced with a curette around the S1 pedicle. The lateral recess was opened with a kerrison helping to further decompress the S1 nerve. Wound is then irrigated copiously with saline and surgiflo is used to stop any bleeding. The tubular retractor is removed and the wound is closed with vicryl and monocryl suture. Glue is then used to protect the wound. A sterile dressing is then placed. Patient was then placed in the supine position and transferred to the PACU in stable condition.
[2022-09-30] MEDS: HYDROcodone-acetaminophen 5-325 mg Tablet 2 TAB PO (15:23)
--- NOTE | 2022-09-30 15:35 | ANE.PACU2 ---
Inpatient post-anesthesia follow up: Airway intact: Yes Vital signs: Temperature 97.6 F Pulse Rate 61 Respiratory Rate 14 Blood Pressure 119/72 Pulse Oximetry 95 Oxygen Delivery Me thod Room Air Oxygen Flow Rate 6 Fraction of Inspir ed Oxygen Hydration adequate: Yes Nausea and vomiting: No Pain level: 1 Mental status: Baseline
--- NOTE | 2022-09-30 15:55 | PC.NURSE ---
Pt states two hydrocodone 5/325 given PO has not decreased his 10/10 pain, Dr. Leyva agreed to pt's requested of an RX change to percocet and ok'd his discharge to home. All vital signs are within normal limits, see associated documentation.
[2022-09-30] MEDS: ondansetron 4 MG Tablet 8 MG PO (16:34)
--- NOTE | 2022-09-30 16:45 | PC.NURSE ---
Per Dr. Leyva, called Rx for Ondansetron 4mg tablet PO q6 hours PRN N/V #30 to [facility] at [facility] and gave pharmacist, Yenifer, verbal order to cancel hydrocodone 5mg-acetaminophen 325 mg RX sent today by Dr. Leyva prior to his sending Percocet RX.
== END 2022-09-30 16:40 | disposition home or self-care (01) ==
PROVIDERS: PCP Family Medicine Adult Medicine; Visit Provider Orthopaedic Surgery
PROC: (CPT 63005; principal; 2022-09-30 11:50)
DX: M48.062 Spinal stenosis, lumbar region with neurogenic claudication (principal); J44.9 Chronic obstructive pulmonary disease, unspecified; G47.30 Sleep apnea, unspecified; I10 Essential (primary) hypertension; K21.9 Gastro-esophageal reflux disease without esophagitis; M79.7 Fibromyalgia; E78.5 Hyperlipidemia, unspecified; Z85.01 Personal history of malignant neoplasm of esophagus; G47.33 Obstructive sleep apnea (adult) (pediatric); Z87.11 Personal history of peptic ulcer disease; Z87.891 Personal history of nicotine dependence
CPT/HCPCS: 63047; 72020; 76000; J0131; J0330; J1100; J1170; J1200; J1720; J2250; J2405; J2704; J3010; J3490; J7030; Q0162

== ENCOUNTER 2022-10-08 12:20 | Outpatient (CLI) | payer MEDICAID, SELFPAY ==
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
== END 2022-10-08 12:21 | disposition home or self-care (01) ==
LOC: RAD 12:21
PROVIDERS: PCP Family Medicine Adult Medicine; Visit Provider Student in an Organized Health Care Education/Training Program
DX: M25.531 Pain in right wrist (principal); W19.XXXA Unspecified fall, initial encounter; R60.0 Localized edema
CPT/HCPCS: 73221

== ENCOUNTER 2022-10-08 12:20 | Outpatient (CLI) | payer MEDICAID, SELFPAY ==
--- NOTE | 2022-10-08 13:45 | MR_ITS ---
WS: [id number] MRI RIGHT SHOULDER NONCONTRAST TECHNIQUE: Sagittal T2, coronal T1, T2 and proton density imaging. Axial gradient PDE imaging. CLINICAL INFORMATION: pain COMPARISON: None. FINDINGS: Moderate edema at the AC joint. Mild widening of the AC joint. Findings suspicious for ligamentous in jury. Edema within the distal clavicle at the AC joint. Mild narrowing of the subacromial space. Slig ht subacromial spurring. Impingement on the distal supraspinatus. Edema within the supraspinatus muscle belly proximal to the AC joint. This is likely due to intrasubs tance muscle belly tear and/or contusion. Small bursal surface tear involving the distal supraspinatu s. Normal infraspinatus and teres minor. Normal subscapularis. Normal biceps tendon in the bicipital groove. Normal biceps labral anchor. Visualized glenoid labrum appears grossly normal. Normal bone marrow signal in the humeral head and glenoid. MR/MR shoulder RT wo con* [id number] IMPRESSION: 1. Moderate edema at the AC joint with widening suspicious for AC joint ligame ntous injury. Small amount of edema in the distal clavicle. 2. Intrasubstance muscle belly tear involving the supraspinatus. Mild chronic thinning of the distal supraspinatus tendon with a small intrasubstance bursal surface tear. 3. Rotator cuff is otherwise normal in appearance. 4. Biceps tendon appears intact within the bicipital groove. Biceps labral anc hor appears intact.
== END 2022-10-08 12:21 | disposition home or self-care (01) ==
LOC: RAD 12:21
PROVIDERS: PCP Family Medicine Adult Medicine; Visit Provider Student in an Organized Health Care Education/Training Program
DX: M25.511 Pain in right shoulder (principal); R60.0 Localized edema
CPT/HCPCS: 73221

== ENCOUNTER 2022-10-12 01:50 | Emergency (ER) | payer MEDICAID, SELFPAY ==
[2022-10-12 01:52] VITALS: BMI 28.0
[2022-10-12 01:58] VITALS: BP 194/118; PULSE 70; RESP 16; TEMP 36.6; O2SAT 98
--- NOTE | 2022-10-12 01:58 | PC.NURSE ---
CCollar placed at this time
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
[2022-10-12 02:08] VITALS: RESP 18
[2022-10-12] MEDS: fentaNYL 50 mcg/mL INJ 2mL 75 MCG IVP ×2 (02:08→02:47)
[2022-10-12] MEDS: iohexol 350 mg/mL 500 mL Btl (per mL) IV (02:13)
[2022-10-12] MEDS: ondansetron 2 mg/ML SDV 2 mL 4 MG IVP (02:14)
[2022-10-12] MEDS: sodium chloride 0.9% 1,000 ML 999 ML IV ×2 (02:15→02:48)
[2022-10-12 02:19] LABS: Add Urine Microscopic? NO; Basophils # 0.1 10^3/uL (0.0-0.1); Basophils % 0.6 %; Charge for UA Resulting for Rev; Eosinophils # 0.2 10^3/uL (0.0-0.8); Hematocrit 40.8 % (42.0-52.0); Hemoglobin 13.7 g/dL (11.7-16.6); Lymphocytes # 2.3 10^3/uL (0.8-4.8); Lymphocytes % 21.4 %; Mean Corpuscular HGB Conc 33.6 g/dL (30.0-36.0); Mean Corpuscular Hemoglobin 29.8 pg (28.0-34.0); Mean Corpuscular Volume 88.9 fl (80-94); Monocytes # 0.7 10^3/uL (0.2-0.9); Monocytes % 6.5 %; Neutrophils # 7.27 10^3/uL (1.8-7.7); Nucleated Red Blood Cells % 0 %; Platelet Count 243 10^3/cmm (130-400); Red Blood Count 4.59 10^6/uL (4.1-5.3); Red Cell Distribution Width 13.3 % (12.1-15.1); White Blood Count 10.5 10^3/uL (4.0-10.0)
[2022-10-12 02:28] LABS: Bilirubin Urine Neg (Negative); Blood Urine Neg (Negative); Glucose Urine UA Norm (Normal); Ketones Urine Negative (Negative); Leukocyte Esterase Urine Negative (Negative); Nitrate Urine Negative (Negative); Protein Urine Neg (Negative); Urine Appearance Clear (CLEAR); Urine Color Light yellow (Yellow); Urobilinogen Urine Neg (Negative); pH Urine 7 (5-7)
[2022-10-12 02:30] LABS: Amphetamines Screen Urine Negative (Negative); Barbiturates Screen Urine Negative (Negative); Benzodiazepines Screen Urine Negative (Negative); Cocaine Screen Urine Negative (Negative); Opiate Screen Urine Negative (Negative); PCP Screen Urine Negative (Negative); THC Screen Urine Positive (Negative)
[2022-10-12 02:37] LABS: Alanine Aminotransferase 21 U/L (0-41); Albumin Level 4.5 g/dL (3.5-5.2); Alkaline Phosphatase 71 U/L (40-130); Anion Gap 14.5 (5-19); Aspartate Amino Transferase 16 U/L (0-40); Blood Urea Nitrogen 14 mg/dL (6-20); Calcium 8.9 mg/dL (8.5-10.5); Carbon Dioxide 23 mmol/L (22-29); Chloride 105 mmol/L (98-107); Globulin 2.5 g/dL (1.3-4.6); Glomerular Filtration Rate 118.4 mL/min (90-130); Glucose 103 mg/dL (65-115); Osmolality Calculated 289 mOsm/kg (285-295); Potassium 3.5 mmol/L (3.5-5.1); Sodium 139 mmol/L (136-145); Total Bilirubin 0.2 mg/dL (0.15-1.2)
[2022-10-12 02:38] LABS: Alcohol Level < 10 mg/dL (0-10)
[2022-10-12 02:45] VITALS: BP 157/88; PULSE 77; RESP 16; O2SAT 97
--- NOTE | 2022-10-12 02:57 | PC.NURSE ---
Report called to Alessia Mccollum
[2022-10-12 03:00] VITALS: BP 155/106; PULSE 72; RESP 18; O2SAT 93
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
== END 2022-10-12 03:25 | disposition short-term general hospital (02) ==
PROVIDERS: Emergency Provider Emergency Medicine; PCP Family Medicine Adult Medicine
DX: S36.114A Minor laceration of liver, initial encounter (principal); Z87.891 Personal history of nicotine dependence; J44.9 Chronic obstructive pulmonary disease, unspecified; Z85.01 Personal history of malignant neoplasm of esophagus; E78.5 Hyperlipidemia, unspecified; I10 Essential (primary) hypertension; Z85.048 Personal history of other malignant neoplasm of rectum, rectosigmoid junction, and anus; V40.5XXA Car driver injured in collision with pedestrian or animal in traffic accident, initial encounter
CPT/HCPCS: 70450; 71260; 72125; 73090; 74177; 80053; 80306; 80307; 81003; 85025; 86850; 86900; 96361; 96374; 96375; 96376; 99285; J2405; J3010; J7030; Q9967

== ENCOUNTER → 2022-10-15 13:47 | Outpatient (BNVA) | payer MEDICAID, SELFPAY | PROVIDERS: PCP Family Medicine Adult Medicine; Visit Provider Orthopaedic Surgery | DX: Z47.89 Encounter for other orthopedic aftercare (principal); M48.07 Spinal stenosis, lumbosacral region | CPT/HCPCS: 72100; 99024 ==

== ENCOUNTER → 2022-10-20 11:20 | Outpatient (BNVA) | payer MEDICAID, SELFPAY | PROVIDERS: PCP Family Medicine Adult Medicine; Visit Provider Family Medicine Adult Medicine | DX: S36.113A Laceration of liver, unspecified degree, initial encounter (principal); X58.XXXA Exposure to other specified factors, initial encounter; I10 Essential (primary) hypertension; R10.9 Unspecified abdominal pain | CPT/HCPCS: 80053; 83690; 85025 ==

== ENCOUNTER → 2022-11-17 10:09 | Outpatient (BNVA) | payer MEDICAID, SELFPAY | PROVIDERS: PCP Family Medicine Adult Medicine; Referring Provider Family Medicine Adult Medicine; Visit Provider Orthopaedic Surgery | DX: S13.4XXA Sprain of ligaments of cervical spine, initial encounter (principal); V13.4XXA Pedal cycle driver injured in collision with car, pick-up truck or van in traffic accident, initial encounter | CPT/HCPCS: 99024; 99214 ==

== ENCOUNTER 2022-11-25 14:17 | Emergency (ER) | payer MEDICAID, SELFPAY ==
[2022-11-25 14:24] VITALS: BP 174/93; PULSE 85; RESP 18; TEMP 36.7; O2SAT 95
--- NOTE | 2022-11-25 14:53 | CT_ITS ---
WS: [id number] CT ABDOMEN PELVIS TECHNIQUE: Noncontrast CT of the abdomen and pelvis with coronal and sagittal reformatted images. CLINICAL INFORMATION: Right flank pain COMPARISON: 10/12/22 DLP: 842.[address] scans at [facility] use at least one of these dose optimization techniques: automated e xposure control; mA and/or kV adjustment per patient size (includes targeted exams where dose is matc hed to clinical indication); or iterative reconstruction. FINDINGS: Lung bases are well aerated. Hepatomegaly. Cholecystectomy clips. Small esophageal hiatal hernia. Thi ckened small bowel jejunal loops in the LEFT upper abdomen are similar in appearance compared to prev ious. A few areas of increased intraluminal attenuation in this area can be seen with angiodysplasia . Consider further evaluation with endoscopy/capsule endoscopy to assess for hemorrhage. Noncontrast pancreas is normal. Adrenal glands are normal. Horseshoe kidney. Nonobstructing calyceal tip calculi. No obstructing renal or ureteral calculi. Small ureterocele the LEFT UVJ. No evidence of obstruction. Adrenal glands are normal. Noncontrast pancreas is normal. Cholecystectomy clips. Viktoriya l caliber abdominal aorta. Prostate calcification. Mild sigmoid colon constipation. Normal appendix in the RIGHT lower quadrant. Prior ventral abdominal wall hernia repair. No free fluid in the abdomen or pelvis. Incidental fat-c ontaining LEFT inguinal hernia. Normal lumbar spine. CT/CT abdomen pelvis wo con [id number] IMPRESSION: 1. Horseshoe kidney as previously described. No evidence of hydronephrosis. No obstructing renal or ureteral calculi. A few tiny nonobstructing calyceal tip calculi similar to previous. 2. Small ureterocele at the LEFT UVJ measuring 13 mm. Both ureters are decompr essed. 3. Thickened small bowel loops in the LEFT upper quadrant similar to the prior CT October 12, 2022. A few areas of increased intraluminal attenuation in this area may be due to angiodysplasia. This can be further evaluated with endoscop y or capsule endoscopy. 4. Hepatomegaly. 5. Small esophageal hiatal hernia. 6. Normal sigmoid colon. Notified Rosa Singleton MD at 11/25/2022 4:28 PM.
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
[2022-11-25 15:26] VITALS: RESP 16
[2022-11-25] MEDS: morphine 4 mg/mL SDV 1 mL IVP ×2 (15:26→17:40)
[2022-11-25 15:30] VITALS: BP 159/91; PULSE 73; O2SAT 97
[2022-11-25 15:44] LABS: Basophils # 0.1 10^3/uL (0.0-0.1); Basophils % 0.7 %; Eosinophils # 0.3 10^3/uL (0.0-0.8); Eosinophils % 2.5 %; Hemoglobin 14.2 g/dL (11.7-16.6); Lymphocytes # 2.7 10^3/uL (0.8-4.8); Lymphocytes % 26.7 %; Mean Corpuscular HGB Conc 32.3 g/dL (30.0-36.0); Mean Corpuscular Hemoglobin 28.8 pg (28.0-34.0); Mean Corpuscular Volume 89.2 fl (80-94); Mean Platelet Volume 11.3 fL (7.4-10.4); Monocytes # 0.8 10^3/uL (0.2-0.9); Monocytes % 7.6 %; Neutrophils # 6.14 10^3/uL (1.8-7.7); Neutrophils % 60.3 %; Nucleated Red Blood Cells % 0 %; Platelet Count 241 10^3/cmm (130-400); Red Blood Count 4.93 10^6/uL (4.1-5.3); Red Cell Distribution Width 12.9 % (12.1-15.1); White Blood Count 10.2 10^3/uL (4.0-10.0)
[2022-11-25 16:01] LABS: Alanine Aminotransferase 41 U/L (0-41); Albumin Level 4.1 g/dL (3.5-5.2); Alkaline Phosphatase 77 U/L (40-130); Aspartate Amino Transferase 15 U/L (0-40); Blood Urea Nitrogen 12 mg/dL (6-20); Calcium 8.8 mg/dL (8.5-10.5); Carbon Dioxide 28 mmol/L (22-29); Chloride 103 mmol/L (98-107); Globulin 2.6 g/dL (1.3-4.6); Glomerular Filtration Rate 118.4 mL/min (90-130); Glucose 84 mg/dL (65-115); Osmolality Calculated 289 mOsm/kg (285-295); Sodium 140 mmol/L (136-145); Total Bilirubin 0.2 mg/dL (0.15-1.2); Total Protein 6.7 g/dL (6.6-8.7)
[2022-11-25] MEDS: ondansetron 2 mg/ML SDV 2 mL 4 MG IVP (16:04)
[2022-11-25 16:07] VITALS: BP 191/121; PULSE 68; O2SAT 97
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
--- NOTE | 2022-11-25 16:15 | PC.NURSE ---
Entered room 16 to answer call light and found patient in the floor, patient advised that he crawled out of bed to use the urinal and while urinating he became dizzy and could not get back in bed. I advised the nurse of this patient what had happened
[2022-11-25 16:33] LABS: Bilirubin Urine Neg (Negative); Blood Urine Neg (Negative); Glucose Urine UA Norm (Normal); Ketones Urine Negative (Negative); Leukocyte Esterase Urine Negative (Negative); Nitrate Urine Negative (Negative); Protein Urine Neg (Negative); Specific Gravity, Urine 1.015 (1.005-1.030); Urine Appearance Cloudy (CLEAR); Urine Color Yellow (Yellow); Urobilinogen Urine Neg (Negative); pH Urine 7 (5-7)
[2022-11-25 16:34] LABS: Add Urine Culture? No; Add Urine Microscopic? YES; Amorphous Sediment Urine 3+ /hpf; Bacteria Urine TRACE /hpf; Calcium Oxalate Crystals Urine 0-4 /hpf; RBC Urine 0-4 /hpf (0-2); Squamous Epithelial Cell Urine RARE /hpf (0-5); WBC Urine 0-4 /hpf (0-5)
[2022-11-25] MEDS: sodium chloride 0.9% 1,000 ML 999 ML IV (16:45)
[2022-11-25 17:41] VITALS: BP 142/71; PULSE 74; O2SAT 96
== END 2022-11-25 18:50 | disposition home or self-care (01) ==
PROVIDERS: Emergency Provider Family Medicine; PCP Family Medicine Adult Medicine
DX: R10.9 Unspecified abdominal pain (principal); J44.9 Chronic obstructive pulmonary disease, unspecified; E78.5 Hyperlipidemia, unspecified; I10 Essential (primary) hypertension; Z85.048 Personal history of other malignant neoplasm of rectum, rectosigmoid junction, and anus; Z87.891 Personal history of nicotine dependence
CPT/HCPCS: 74176; 80053; 81000; 81001; 85025; 96361; 96374; 96375; 96376; 99285; J2270; J2405; J7030

== ENCOUNTER → 2022-11-26 09:15 | Outpatient (BNVA) | payer MEDICAID, SELFPAY | PROVIDERS: PCP Family Medicine Adult Medicine; Visit Provider Student in an Organized Health Care Education/Training Program | DX: S49.91XA Unspecified injury of right shoulder and upper arm, initial encounter; S69.91XA Unspecified injury of right wrist, hand and finger(s), initial encounter; V89.0XXA Person injured in unspecified motor-vehicle accident, nontraffic, initial encounter; M75.111 Incomplete rotator cuff tear or rupture of right shoulder, not specified as traumatic | CPT/HCPCS: 20610; 99214; J3301 ==

== ENCOUNTER 2022-12-03 06:00 | Outpatient (RCR) | payer MEDICAID, SELFPAY | END 2023-01-01 23:59 | disposition home or self-care (01) | LOC: TPT 06:00 | PROVIDERS: PCP Family Medicine Adult Medicine; Visit Provider Orthopaedic Surgery | DX: Z47.89 Encounter for other orthopedic aftercare (principal) | CPT/HCPCS: 97032; 97110; 97140; 97163 ==

== ENCOUNTER 2022-12-16 10:22 | Outpatient (CLI) | payer MEDICAID, SELFPAY ==
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
== END 2022-12-16 10:23 | disposition home or self-care (01) ==
LOC: RAD 10:25
PROVIDERS: PCP Family Medicine Adult Medicine; Visit Provider Orthopaedic Surgery
DX: M54.2 Cervicalgia (principal); V88.7XXA Person injured in collision between other specified motor vehicle, nontraffic, initial encounter
CPT/HCPCS: 72141

== ENCOUNTER → 2022-12-17 11:50 | Outpatient (BNVA) | payer MEDICAID, SELFPAY | PROVIDERS: PCP Family Medicine Adult Medicine; Visit Provider Student in an Organized Health Care Education/Training Program | DX: S83.8X1A Sprain of other specified parts of right knee, initial encounter (principal); W55.22XA Struck by cow, initial encounter | CPT/HCPCS: 73560; 73565; 99213 ==

== ENCOUNTER 2023-01-02 06:00 | Outpatient (RCR) | payer MEDICAID, SELFPAY | END 2023-01-31 23:59 | disposition home or self-care (01) | LOC: TPT 06:00 | PROVIDERS: PCP Family Medicine Adult Medicine; Visit Provider Orthopaedic Surgery | DX: Z47.89 Encounter for other orthopedic aftercare (principal) | CPT/HCPCS: 97032; 97110 ==

== ENCOUNTER 2023-01-04 20:17 | Emergency (ER) | payer MEDICAID, SELFPAY ==
[2023-01-04 20:18] VITALS: BP 138/112; PULSE 101; RESP 16; TEMP 36.9; O2SAT 92; BMI 29.5
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
[2023-01-04] MEDS: ondansetron 2 mg/ML SDV 2 mL 4 MG IVP (20:55)
[2023-01-04] MEDS: morphine 4 mg/mL SDV 1 mL IVP (20:55)
[2023-01-04] MEDS: HYDROmorphone 1 mg/mL INJ 1 mL IVP (21:51)
[2023-01-04 21:53] VITALS: BP 166/104; PULSE 83; RESP 16; O2SAT 97
--- NOTE | 2023-01-05 11:24 | DCPLANNER ---
Addendum entered by Sita Parker 01/20/23 07:52: Patient had a follow up appointment scheduled with ENT - patient did attend appointment. Addendum entered by Sita Parker 01/08/23 07:35: Patient has a follow up appointment scheduled for Thursday, January 12, 2023 at 3:[address] Alvarado at ENT. Original Note: civil engineering manager had message to schedule a follow up appointment for patient with ENT. civil engineering manager sent patients information to the front office staff at ENT. Patients information will be printed and reviewed. Clinic will call patient with appointment information.
== END 2023-01-04 22:11 | disposition home or self-care (01) ==
PROVIDERS: Emergency Provider Emergency Medicine; PCP Family Medicine Adult Medicine
DX: S02.842A Fracture of lateral orbital wall, left side, initial encounter for closed fracture (principal); S02.40DA Maxillary fracture, left side, initial encounter for closed fracture; Z87.891 Personal history of nicotine dependence; E78.5 Hyperlipidemia, unspecified; I10 Essential (primary) hypertension; Z85.048 Personal history of other malignant neoplasm of rectum, rectosigmoid junction, and anus; Y04.2XXA Assault by strike against or bumped into by another person, initial encounter
CPT/HCPCS: 70450; 70486; 72125; 96374; 96375; 99285; J1170; J2270; J2405

== ENCOUNTER 2023-01-07 08:18 | Outpatient (CLI) | payer MEDICAID, SELFPAY ==
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
== END 2023-01-07 08:19 | disposition home or self-care (01) ==
PROVIDERS: PCP Family Medicine Adult Medicine; Visit Provider Student in an Organized Health Care Education/Training Program
DX: M22.41 Chondromalacia patellae, right knee (principal); M17.11 Unilateral primary osteoarthritis, right knee; Z79.891 Long term (current) use of opiate analgesic; M25.561 Pain in right knee
CPT/HCPCS: 73721; 80307

== ENCOUNTER 2023-01-07 10:05 | Emergency (ER) | payer MEDICAID, SELFPAY ==
[2023-01-07 10:21] VITALS: BP 168/111; PULSE 90; RESP 16; TEMP 36.5; O2SAT 95
[2023-01-07 10:38] VITALS: BP 190/138; O2SAT 95
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
[2023-01-07 11:24] LABS: Basophils # 0.1 10^3/uL (0.0-0.1); Eosinophils # 0.1 10^3/uL (0.0-0.8); Eosinophils % 2.1 %; Hematocrit 45.3 % (42.0-52.0); Hemoglobin 15.1 g/dL (11.7-16.6); Lymphocytes # 1.7 10^3/uL (0.8-4.8); Lymphocytes % 28.1 %; Mean Corpuscular HGB Conc 33.3 g/dL (30.0-36.0); Mean Corpuscular Hemoglobin 29.4 pg (28.0-34.0); Mean Corpuscular Volume 88.1 fl (80-94); Mean Platelet Volume 10.9 fL (7.4-10.4); Monocytes # 0.4 10^3/uL (0.2-0.9); Monocytes % 6.8 %; Neutrophils % 61.4 %; Nucleated Red Blood Cells % 0 %; Platelet Count 209 10^3/cmm (130-400); Red Blood Count 5.14 10^6/uL (4.1-5.3); Red Cell Distribution Width 12.7 % (12.1-15.1); White Blood Count 6.2 10^3/uL (4.0-10.0)
[2023-01-07] MEDS: ondansetron 2 mg/ML SDV 2 mL 4 MG IVP (11:28)
[2023-01-07 11:30] LABS: Add Urine Microscopic? NO; Charge for UA Resulting for Rev
[2023-01-07] MEDS: morphine 4 mg/mL SDV 1 mL 2 MG IVP ×2 (11:30→13:10)
[2023-01-07 11:33] VITALS: BP 138/91; PULSE 84; O2SAT 95
[2023-01-07 11:41] LABS: Alanine Aminotransferase 32 U/L (0-41); Albumin Level 4.3 g/dL (3.5-5.2); Alkaline Phosphatase 70 U/L (40-130); Anion Gap 14.2 (5-19); Aspartate Amino Transferase 23 U/L (0-40); Blood Urea Nitrogen 9 mg/dL (6-20); Calcium 9.3 mg/dL (8.5-10.5); Carbon Dioxide 25 mmol/L (22-29); Chloride 103 mmol/L (98-107); Globulin 2.9 g/dL (1.3-4.6); Glomerular Filtration Rate 141.5 mL/min (90-130); Glucose 106 mg/dL (65-115); Osmolality Calculated 285 mOsm/kg (285-295); Potassium 4.2 mmol/L (3.5-5.1); Sodium 138 mmol/L (136-145); Total Bilirubin 0.4 mg/dL (0.15-1.2); Total Protein 7.2 g/dL (6.6-8.7)
[2023-01-07] MEDS: iohexol 350 mg/mL 500 mL Btl (per mL) IV (11:47)
[2023-01-07 12:02] LABS: Bilirubin Urine Neg (Negative); Blood Urine Neg (Negative); Glucose Urine UA Norm (Normal); Ketones Urine Negative (Negative); Leukocyte Esterase Urine Negative (Negative); Nitrate Urine Negative (Negative); Protein Urine Neg (Negative); Specific Gravity, Urine 1.015 (1.005-1.030); Sulfosalicylic Acid Urine Negative (Negative); Urine Appearance Clear (CLEAR); Urine Color Yellow (Yellow); Urobilinogen Urine Neg (Negative); pH Urine 8 (5-7)
[2023-01-07] MEDS: promethazine 25 mg/mL SDV 1 mL IM (13:29)
[2023-01-07 13:55] VITALS: BP 132/90; PULSE 78; O2SAT 96
--- NOTE | 2023-01-11 14:20 | DCPLANNER ---
logistics and planning manager had message to schedule an outpatient appointment for patient with ENT. logistics and planning manager referred patient to ENT from previous visit - patient has an appointment scheduled for Thursday, January 12, 2023 at 3:30 with ENT. logistics and planning manager also had message to confirm that patient has an lumber spine MRI scheduled - patient has an MRI scheduled for 01.13.23.
== END 2023-01-07 13:56 | disposition home or self-care (01) ==
PROVIDERS: Emergency Provider Family Medicine; PCP Family Medicine Adult Medicine
DX: S02.85XA Fracture of orbit, unspecified, initial encounter for closed fracture (principal); M48.062 Spinal stenosis, lumbar region with neurogenic claudication; Y09 Assault by unspecified means; Z87.891 Personal history of nicotine dependence; J44.9 Chronic obstructive pulmonary disease, unspecified; E78.5 Hyperlipidemia, unspecified; I10 Essential (primary) hypertension; Z85.048 Personal history of other malignant neoplasm of rectum, rectosigmoid junction, and anus
CPT/HCPCS: 74177; 80053; 81003; 85025; 96372; 96374; 96375; 96376; 99285; J2270; J2405; J2550; Q9967

== ENCOUNTER 2023-01-13 07:12 | Outpatient (CLI) | payer MEDICAID, SELFPAY ==
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
== END 2023-01-13 07:13 | disposition home or self-care (01) ==
LOC: RAD 07:14
PROVIDERS: PCP Family Medicine Adult Medicine; Visit Provider Orthopaedic Surgery
DX: M48.062 Spinal stenosis, lumbar region with neurogenic claudication (principal); M51.26 Other intervertebral disc displacement, lumbar region; M54.50 Low back pain, unspecified; M47.22 Other spondylosis with radiculopathy, cervical region
CPT/HCPCS: 72148; 99214

== ENCOUNTER → 2023-01-15 09:41 | Outpatient (BNVA) | payer MEDICAID, SELFPAY | PROVIDERS: PCP Family Medicine Adult Medicine; Visit Provider Otolaryngology | DX: S02.85XA Fracture of orbit, unspecified, initial encounter for closed fracture (principal); S02.40DB Maxillary fracture, left side, initial encounter for open fracture; M26.629 Arthralgia of temporomandibular joint, unspecified side; X58.XXXA Exposure to other specified factors, initial encounter; Y09 Assault by unspecified means; R42 Dizziness and giddiness | CPT/HCPCS: 99204 ==

== ENCOUNTER → 2023-01-25 14:33 | Outpatient (BNVA) | payer MEDICAID, SELFPAY | PROVIDERS: PCP Family Medicine Adult Medicine; Visit Provider Specialist | DX: G43.711 Chronic migraine without aura, intractable, with status migrainosus (principal); F41.9 Anxiety disorder, unspecified; M54.2 Cervicalgia; M54.9 Dorsalgia, unspecified; G89.29 Other chronic pain; R45.4 Irritability and anger; F32.A Depression, unspecified | CPT/HCPCS: 99214 ==

== ENCOUNTER → 2023-01-26 08:39 | Outpatient (BNVA) | payer MEDICAID, SELFPAY | PROVIDERS: PCP Family Medicine Adult Medicine; Visit Provider Orthopaedic Surgery | DX: M47.22 Other spondylosis with radiculopathy, cervical region (principal) | CPT/HCPCS: 99213 ==

== ENCOUNTER → 2023-01-27 15:24 | Outpatient (BNVA) | payer MEDICAID, SELFPAY | PROVIDERS: PCP Family Medicine Adult Medicine; Visit Provider Family Medicine Adult Medicine | DX: R39.9 Unspecified symptoms and signs involving the genitourinary system (principal) | CPT/HCPCS: 81000 ==

== ENCOUNTER 2023-02-01 06:00 | Outpatient (RCR) | payer MEDICAID, SELFPAY ==
[2023-02-01 15:12] LABS: Basophils # 0.1 10^3/uL (0.0-0.1); Basophils % 0.9 %; Eosinophils # 0.2 10^3/uL (0.0-0.8); Hematocrit 42.7 % (42.0-52.0); Hemoglobin 14.4 g/dL (11.7-16.6); Lymphocytes # 2.2 10^3/uL (0.8-4.8); Lymphocytes % 28.4 %; Mean Corpuscular HGB Conc 33.7 g/dL (30.0-36.0); Mean Corpuscular Hemoglobin 29.9 pg (28.0-34.0); Mean Corpuscular Volume 88.8 fl (80-94); Mean Platelet Volume 11.1 fL (7.4-10.4); Monocytes # 0.6 10^3/uL (0.2-0.9); Monocytes % 7.7 %; Neutrophils # 4.58 10^3/uL (1.8-7.7); Neutrophils % 59.4 %; Nucleated Red Blood Cells % 0 %; Platelet Count 222 10^3/cmm (130-400); Red Blood Count 4.81 10^6/uL (4.1-5.3); Red Cell Distribution Width 12.7 % (12.1-15.1); White Blood Count 7.7 10^3/uL (4.0-10.0)
[2023-02-01 15:32] LABS: Anion Gap 14.1 (5-19); Blood Urea Nitrogen 9 mg/dL (6-20); Calcium 9.1 mg/dL (8.5-10.5); Carbon Dioxide 26 mmol/L (22-29); Chloride 102 mmol/L (98-107); Glomerular Filtration Rate 118.4 mL/min (90-130); Glucose 95 mg/dL (65-115); Osmolality Calculated 284 mOsm/kg (285-295); Potassium 4.1 mmol/L (3.5-5.1); Sodium 138 mmol/L (136-145)
== END 2023-03-03 23:59 | disposition home or self-care (01) ==
LOC: TPT 06:00
PROVIDERS: PCP Clinical Nurse Specialist Adult Health; Visit Provider Orthopaedic Surgery
DX: Z47.89 Encounter for other orthopedic aftercare (principal)
CPT/HCPCS: 80048; 85025; 97110; 97164; 97530; 99214

== ENCOUNTER → 2023-02-01 13:18 | Outpatient (BNVA) | payer MEDICAID, SELFPAY | PROVIDERS: PCP Family Medicine Adult Medicine; Visit Provider Internal Medicine Cardiovascular Disease | DX: G43.711 Chronic migraine without aura, intractable, with status migrainosus (principal); M26.629 Arthralgia of temporomandibular joint, unspecified side; E78.5 Hyperlipidemia, unspecified; G47.33 Obstructive sleep apnea (adult) (pediatric); I10 Essential (primary) hypertension | CPT/HCPCS: 80048; 85025; 97164; 99214 ==

== ENCOUNTER 2023-02-10 05:41 | Day surgery (SDC) | payer MEDICAID, SELFPAY ==
[2023-02-04 09:37] VITALS: BMI 29.9
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
[2023-02-10] VITALS (13 sets, daily range): BP systolic 86–151; BP diastolic 50–101; PULSE 51–79; RESP 14–19; TEMP 36.1–36.9; O2SAT 90–100
--- NOTE | 2023-02-10 | XR_ITS ---
WS: [id number] Cervical spine, C-arm fluoroscopy, 02/10/2023 Clinical Data: ACDF c5-6, c6-7 Comparison: None. Findings: Dr. Leyva performed an anterior cervical disc fusion. XR/XR cervical spine 3V* [id number] Impression: Anterior cervical disc fusion.
--- NOTE | 2023-02-10 06:15 | W.PM.OPSUD ---
Surgery/Procedure H&P Update DATE OF PROCEDURE: February 10, 2023 DATE H&P PERFORMED: 01/26/23 H&P UPDATE INFORMATION: I have reviewed H&P completed within last 30 days, I have examined patient prior to procedure and No changes to prior documentation PREOP DIAGNOSIS: Cervical spondylosis with radiculopathy PLANNED PROCEDURE: Operation Date: 02/10/23 07:00 Proposed Procedures p cervical spondylosis with myelopathy,[id number],M47.12(Not Applicable) - Roque Leyva DO
[2023-02-10] MEDS: ondansetron 2 mg/ML SDV 2 mL 4 MG IVP (06:26)
[2023-02-10] MEDS: sodium chloride 0.9% 1,000 ML 30 ML IV (06:26)
[2023-02-10] MEDS: vancomycin 1,000 MG in sodium chloride 0.9% 250 ML 250 MG IV (06:45)
[2023-02-10] MEDS: diphenhydrAMINE 50 mg/mL SDV 1mL 12.5 MG IVP (07:07)
[2023-02-10] MEDS: midazolam 1 mg/mL INJ 2 mL 2 MG IVP (07:08)
[2023-02-10] MEDS: lidocaine-epi 1% 20 mL INJ INJECTION (07:42)
--- NOTE | 2023-02-10 08:05 | P.ANESUD_ITS ---
Pre-Anesthetic Update Pre-Anesthetic Assessment: Date of Surgery/Procedure: 02/10/23 Preop Dasah gnosis: Cervical spondylosis with radiculopathy Proposed Procedure: Operation Date: 02/10/23 07:00 Proposed Procedures p Anterior Cervical Discectomy & Fusion(Not Applicable) - Roque Leyva, DO Any changes to Pre-Anesthetic Assessment?: No Last Intake: Intake Last Liquid Date 02/09/23 Last Liquid Time 20:30 Last Solid Date 02/09/23 Last Solid Time 20:30 Vitals: Temperature 98.1 F 02/10/23 06:13 Temperature Source Temporal Artery S can 02/10/23 06:13 Pulse Rate 76 02/10/23 06:13 Respiratory Rate 18 02/10/23 06:13 Blood Pressure 151/101 02/10/23 06:13 Blood Pressure Criss n 117 02/10/23 06:13 Pulse Oximetry 97 02/10/23 06:13 Oxygen Delivery Me thod Room Air 02/10/23 06:15 Exam: Pre-Anes Outpt Exam: alert, oriented x 3, clear to auscultation bilaterally and regular rate & rhythm Additional Exam Findings (including area of procedure): Very anxious appearing, nauseated and vomiting clear liquid. Cardiac Studies: Echocardiogram 12/18/21 Echocardiogram Limited Views 07/28/22 Echocardiogram Ultrasound 11/03/20 Stress Echocardiogram 07/28/22
--- NOTE | 2023-02-10 08:42 | P.OP_ITS ---
Operative Report Date of procedure: February 10, 2023 Pre-op diagnosis: Preop Diagnosis Cervical spondylosis with radiculopathy Post-op diagnosis: same Procedure done: 1. Anterior diskectomy C5/6 2. Anterior discectomy C6/7 3. Insertion of cage C5/6 4. Insertion of Cage C6/7 5. Instrumentation with anterior plate from C5-C7 6. Use of allograft Surgeon: Roque Leyva [employer] Turbine Powerplant Mechanic Helper: Orlin Pierson [employer] Turbine Powerplant Mechanic Helper: The surgical dental assistant, Orlin Pierson, DENZEL was needed for his expertise under the microscope. He was important and necessary throughout the procedure to complete in a safe and timely manner. He assisted with patient positioning prepping and draping tissue retraction suctioning of the operative field protection of the dural sac and tissue closure Estimated blood loss (mL): 25 Procedure: 1. Anterior diskectomy C5/6 2. Anterior discectomy C6/7 3. Insertion of cage C5/6 4. Insertion of Cage C6/7 5. Instrumentation with anterior plate from C5-C7 6. Use of allograft The patient was taken to the operating room, where he underwent general endotracheal anesthesia without complications. He was then positioned supine on the operating table, and all areas of impingement were well padded. The arms were carefully padded and tucked at his sides. A roll was placed between the shoulder blades.. An x-ray was done to determine the appropriate level for the skin incision. The entire neck was then sterilely prepped and draped in the usual fashion. Neuromonitoring was attached prior to prepping. A transverse skin incision was made and carried down to the platysma muscle. This was then split in line with its fibers. Blunt dissection was carried down medial to the carotid sheath and lateral to the trachea and esophagus until the anterior cervical spine was visualized. A needle was placed into a disc and an x-ray was done to determine its location. The longus colli muscles were then elevated bilaterally with the electrocautery unit. Self-retaining retractors were placed deep to the longus colli muscle. Attention was brought to the C5/6 level that was confirmed on x-ray. A caspar pin was placed into the C5 vertebrae and the C6 vertebrae. The disk space was then distracted. The microscope was then brought in. A radical anterior discectomies were performed at C5/6. This included complete removal of the anterior annulus, nucleus, and posterior annulus. The posterior longitudinal ligament was removed as were the posterior osteophytes. Foraminotomies were then accomplished bilaterally. This was done using a high speed sagrario, kerrison rongeurs and curretes Once all of this was accomplished, the curved currette was used to check for any residual compression. The central canal was wide open as were the foramen. A high-speed bur was used to remove the cartilaginous endplates above and below the interspace. Bleeding cancellous bone was exposed. The disc space were measured and appropriate size cage were placed sterilely onto the field. Allograft graft was packed into the cages. The cage was then placed and there was good juxtaposition against the bleeding decorticated surfaces and good distraction of each interspace. Attention was brought to the next interspace. The Alto pins were removed. Bone wax was used to prevent any bleeding from occurring at the pin sites. Attention was brought to the C6/7 level that was confirmed on x-ray. A caspar pin was placed into the C6 vertebrae and the C7 vertebrae. The disk space was then distracted. The microscope was then brought in. A radical anterior d iscectomies were performed at C6/7. This included complete removal of the anterior annulus, nucleus, and posterior annulus. The posterior longitudinal ligament was removed as were the posterior osteophytes. Foraminotomies were then accomplished bilaterally. This was done using a high speed sagrario, kerrison rongeurs and curretes Once all of this was accomplished, the curved currette was used to check for any residual compression. The central canal was wide open as were the foramen. A high-speed bur was used to remove the cartilaginous endplates above and below the interspace. Bleeding cancellous bone was exposed. The disc space were measured and appropriate size cage were placed sterilely onto the field. Allograft graft was packed into the cages. The cage was then placed and there was good juxtaposition against the bleeding decorticated surfaces and good distraction of each interspace. Attention was brought to the next interspace. The Alto pins were removed. Bone wax was used to prevent any bleeding from occurring at the pin sites. The appropriate size anterior cervical locking plate was chosen and bent into gentle lordosis. Two screws were then placed into each of the vertebral bodies at C5, C6 and C7. There was excellent purchase. A final x-ray was done confirming good position of the hardware and Cages. The locking screws were then applied, also with excellent purchase. Following a final copious irrigation, there was good hemostasis and no dural leaks. The carotid pulse was strong. The wounds were then closed in layers using 2-0 Vicryl suture for the platysma muscle, 2-0 Vicryl suture for the subcutaneous tissue, and 4-0 monocryl suture in a subcuticular skin closure. Glue was placed followed by application of a sterile dressing. The drain was hooked to bulb suction. A soft collar was applied. The patient was then carefully returned to the supine position on his hospital bed where he was reversed and extubated and taken to the recovery room having tolerated the procedure well.
--- NOTE | 2023-02-10 09:12 | ECG_ITS ---
[facility] Test Date: 2023-02-10 Pat Name: Paco Escobedo Department: Room: Gender: Male Crew Member: : 1970 Requested By: Arturo Sun Order Number: [id number] Shawna MD: Sharlene Becerra M.D. Measurements Intervals [place] Rate: 54 P: 52 NE: 166 QRS: -11 QRSD: 102 T: 22 QT: 439 QTc: 416 Interpretive Statements SINUS BRADYCARDIA INCOMPLETE RIGHT BUNDLE BRANCH BLOCK [90+ ms QRS DURATION, TERMINAL R IN V1/V2, 40+ ms S IN I/aVL/V4/V5/V6] NONSPECIFIC T-WAVE ABNORMALITY Compared to ECG 01/18/2022 01:36:01 Incomplete right bundle-branch block now present T-wave abnormality now present Electronically Signed On 02-10-2023 21:01:02 CDT by Sharlene Becerra M.D. [id number]
[2023-02-10] MEDS: HYDROcodone-acetaminophen 10-325 mg Tablet 1 TAB PO ×2 (10:10→12:26)
--- NOTE | 2023-02-10 15:36 | ANE.PACU2 ---
Inpatient post-anesthesia follow up: Airway intact: Yes Vital signs: Temperature 98.4 F Pulse Rate 79 Respiratory Rate 18 Blood Pressure 134/66 Pulse Oximetry 92 Oxygen Delivery Me thod Room Air Oxygen Flow Rate 6 Fraction of Inspir ed Oxygen Hydration adequate: Yes Nausea and vomiting: Yes Pain level: 4 Mental status: Baseline
== END 2023-02-10 12:20 | disposition home or self-care (01) ==
PROVIDERS: PCP Clinical Nurse Specialist Adult Health; Visit Provider Orthopaedic Surgery
PROC: 0RB30ZZ Excision of Cervical Vertebral Disc, Open Approach (ICD-10-PCS; CPT 22551; principal; 2023-02-10 07:00)
DX: M47.22 Other spondylosis with radiculopathy, cervical region (principal); J44.9 Chronic obstructive pulmonary disease, unspecified; Z87.891 Personal history of nicotine dependence; I10 Essential (primary) hypertension; K21.9 Gastro-esophageal reflux disease without esophagitis; E78.5 Hyperlipidemia, unspecified; R00.1 Bradycardia, unspecified; I45.10 Unspecified right bundle-branch block
CPT/HCPCS: 20930; 22551; 22552; 22845; 22853 ×2; 72040; 76000; 93005; C1713; C1763; C9359; J0330; J1100; J1200; J1790; J2250; J2370; J2405; J2704; J2710; J3010; J3370; J3490; J3535; J7030; J7050

== ENCOUNTER → 2023-02-11 09:21 | Outpatient (BNVA) | payer MEDICAID, SELFPAY | PROVIDERS: PCP Clinical Nurse Specialist Adult Health; Visit Provider Orthopaedic Surgery | DX: Z47.89 Encounter for other orthopedic aftercare (principal); Z98.1 Arthrodesis status | CPT/HCPCS: 72040; 99024 ==

== ENCOUNTER 2023-02-12 11:16 | Emergency (ER) | payer MEDICAID, SELFPAY ==
[2023-02-12 11:20] VITALS: BP 170/112; PULSE 84; RESP 17; TEMP 37.1; O2SAT 97; BMI 31.3
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
[2023-02-12 11:49] VITALS: BP 172/117; PULSE 89; RESP 16; O2SAT 97
--- NOTE | 2023-02-12 11:52 | CT_ITS ---
WS: [id number] CT NECK TECHNIQUE: Contrast-enhanced CT of the neck with coronal and sagittal reformatted images. CLINICAL INFORMATION: pain, swelling, bleeding, dysphagia COMPARISON: CT cervical January 04, 2023 DLP: 306.[address] scans at [facility] use at least one of these dose optimization techniques: automated e xposure control; mA and/or kV adjustment per patient size (includes targeted exams where dose is matc hed to clinical indication); or iterative reconstruction. FINDINGS: Straightening of the normal cervical lordosis. Recent postoperative changes ACDF C5-C7. Hardware appe ars in good position. No evidence of hardware loosening. Postoperative changes and fluid involving th e RIGHT neck with associated subcutaneous air and induration compatible with recent postoperative aicha nges. Fluid in the prevertebral space with small amount of air likely postoperative considering recen t surgery. Mild indentation of the posterior larynx. Mild focal cord edema likely from recent intubation. Airway is patent. Small amount of subcutaneous air extends to the thoracic inlet and upper mediastinum. No active hemorrhage. CT/CT neck w con* [id number] IMPRESSION: 1. Recent postoperative changes ACF C5-C7. Hardware appears in good position. 2. Fluid and edema with subcutaneous air in the RIGHT neck along the surgical tract. Edema and fluid in the prevertebral space with a small amount of air. Th den findings are likely postoperative considering recent surgery. 3. No evidence of active hemorrhage. 4. No high-grade airway stenosis.
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
[2023-02-12 12:02] VITALS: BP 172/117; PULSE 90; RESP 16; O2SAT 97
[2023-02-12 12:09] LABS: Basophils % 0.4 %; Eosinophils # 0.1 10^3/uL (0.0-0.8); Eosinophils % 0.9 %; Hemoglobin 15.3 g/dL (11.7-16.6); Lymphocytes # 2.2 10^3/uL (0.8-4.8); Lymphocytes % 21.7 %; Mean Corpuscular HGB Conc 32.6 g/dL (30.0-36.0); Mean Corpuscular Volume 89.2 fl (80-94); Mean Platelet Volume 11.2 fL (7.4-10.4); Monocytes # 0.9 10^3/uL (0.2-0.9); Monocytes % 9.2 %; Neutrophils # 6.92 10^3/uL (1.8-7.7); Neutrophils % 67.4 %; Nucleated Red Blood Cells % 0 %; Platelet Count 207 10^3/cmm (130-400); Red Blood Count 5.27 10^6/uL (4.1-5.3); Red Cell Distribution Width 12.2 % (12.1-15.1); White Blood Count 10.3 10^3/uL (4.0-10.0)
[2023-02-12 12:36] LABS: Alanine Aminotransferase 38 U/L (0-41); Albumin Level 4.3 g/dL (3.5-5.2); Alkaline Phosphatase 75 U/L (40-130); Blood Urea Nitrogen 7 mg/dL (6-20); C Reactive Protein 128.7 mg/L (0.0-4.9); Calcium 9.2 mg/dL (8.5-10.5); Carbon Dioxide 28 mmol/L (22-29); Chloride 102 mmol/L (98-107); Globulin 3.4 g/dL (1.3-4.6); Glomerular Filtration Rate 174.6 mL/min (90-130); Glucose 91 mg/dL (65-115); Osmolality Calculated 290 mOsm/kg (285-295); Sodium 141 mmol/L (136-145); Total Bilirubin 0.9 mg/dL (0.15-1.2); Total Protein 7.7 g/dL (6.6-8.7)
[2023-02-12] MEDS: ondansetron 2 mg/ML SDV 2 mL 4 MG IVP (12:37)
[2023-02-12] MEDS: morphine 4 mg/mL SDV 1 mL IVP (12:37)
[2023-02-12 12:38] VITALS: BP 172/117; PULSE 89; RESP 16; O2SAT 96
[2023-02-12 12:41] LABS: Anion Gap 15.7 (5-19); Aspartate Amino Transferase 24 U/L (0-40); Potassium 4.7 mmol/L (3.5-5.1)
[2023-02-12] MEDS: metoprolol tartrate 1 mg/1 mL SDV 5 mL 2.5 MG IVP (12:42)
[2023-02-12] MEDS: sodium chloride 0.9% 1,000 ML 999 ML IV (12:44)
[2023-02-12] MEDS: iohexol 350 mg/mL 500 mL Btl (per mL) IV (12:58)
[2023-02-12 13:24] VITALS: BP 148/55; PULSE 67; RESP 16; O2SAT 94
[2023-02-12 13:41] VITALS: BP 148/97; PULSE 67; RESP 16; O2SAT 95
[2023-02-12] MEDS: dexamethasone 10 mg/mL INJ IVP (14:12)
[2023-02-12] MEDS: pantoprazole DR 40 mg Tablet PO (14:15)
== END 2023-02-12 14:20 | disposition home or self-care (01) ==
PROVIDERS: Nurse Practitioner Family; Emergency Provider Physician Assistant; PCP Clinical Nurse Specialist Adult Health
DX: L03.221 Cellulitis of neck (principal); G89.18 Other acute postprocedural pain; Z87.891 Personal history of nicotine dependence; J44.9 Chronic obstructive pulmonary disease, unspecified; E78.5 Hyperlipidemia, unspecified; I10 Essential (primary) hypertension; Z85.048 Personal history of other malignant neoplasm of rectum, rectosigmoid junction, and anus
CPT/HCPCS: 36415; 70491; 80053; 85025; 86140; 96361; 96374; 96375; 99285; J1100; J2270; J2405; J3490; J7030; Q9967

== ENCOUNTER → 2023-02-18 09:54 | Outpatient (BNVA) | payer MEDICAID, SELFPAY | PROVIDERS: PCP Clinical Nurse Specialist Adult Health; Visit Provider Orthopaedic Surgery | DX: Z47.89 Encounter for other orthopedic aftercare (principal); Z98.1 Arthrodesis status | CPT/HCPCS: 99024 ==

== ENCOUNTER → 2023-02-19 09:39 | Outpatient (BNVA) | payer MEDICAID, SELFPAY | PROVIDERS: PCP Clinical Nurse Specialist Adult Health; Visit Provider Student in an Organized Health Care Education/Training Program | DX: M75.111 Incomplete rotator cuff tear or rupture of right shoulder, not specified as traumatic (principal) | CPT/HCPCS: 99213 ==

== ENCOUNTER 2023-03-05 20:56 | Emergency (ER) | payer MEDICAID, SELFPAY ==
[2023-03-05 21:18] VITALS: PULSE 110; RESP 18; TEMP 36.9; O2SAT 97; BMI 26.6
--- NOTE | 2023-03-05 23:48 | CTR_ITS ---
PROCEDURE INFORMATION: Exam: CT Cervical Spine Without Contrast Exam date and time: 03/05/2023 11:57 PM Age: 52 years old Clinical indication: Prior surgery; Surgery date: <1 month; Surgery type: Cervical fusion two weeks ago; Patient HX: C/O of neck pain after having to pack belongings for a move. ; Additional info: Pain, recent surgery, over exerted self TECHNIQUE: Imaging protocol: Computed tomography of the cervical spine without contrast. Radiation optimization: All CT scans at this facility use at least one of these dose optimization techniques: automated exposure control; mA and/or kV adjustment per patient size (includes targeted exams where dose is matched to clinical indication); or iterative reconstruction. REPORTING DATA: Count of CT and Cardiac NM exams in prior 12 months: This patient has received 15 known CTs and 0 known cardiac nuclear medicine studies in the 12 months prior to the current study. COMPARISON: CT cervical spin wo con* [id number] 01/04/2023 9:24 PM RADIATION DOSE METRICS: Total DLP (mGy-cm): 164.07 FINDINGS: Bones/joints: Cervical hardware seen in place in the spine. C2-C3: No significant disc bulge or herniation. No severe spinal canal stenosis. No significant neural foraminal narrowing. C3-C4: No significant disc bulge or herniation. No severe spinal canal stenosis. No significant neural foraminal narrowing. C4-C5: No significant disc bulge or herniation. No severe spinal canal stenosis. No significant neural foraminal narrowing. C5-C6: No significant disc bulge or herniation. No severe spinal canal stenosis. No significant neural foraminal narrowing. C6-C7: No significant disc bulge or herniation. No severe spinal canal stenosis. No significant neural foraminal narrowing. C7-T1: No significant disc bulge or herniation. No severe spinal canal stenosis. No significant neural foraminal narrowing. Lungs: Lung apices are normal. Soft tissues: Unremarkable. Left mastoid air cell opacifications may reflect a chronic infectious or inflammatory process. CT/CT cervical spin wo con* [id number] IMPRESSION: Negative for fracture or dislocation.
--- NOTE | 2023-03-05 23:48 | CTR_ITS ---
PROCEDURE INFORMATION: Exam: CT Lumbar Spine Without Contrast Exam date and time: 03/05/2023 11:59 PM Age: 52 years old Clinical indication: Patient HX: C/O low back pain after packing belonging for a move. ; Additional info: Pain, HX surgery, over exertion TECHNIQUE: Imaging protocol: Computed tomography of the lumbar spine without contrast. Radiation optimization: All CT scans at this facility use at least one of these dose optimization techniques: automated exposure control; mA and/or kV adjustment per patient size (includes targeted exams where dose is matched to clinical indication); or iterative reconstruction. REPORTING DATA: Count of CT and Cardiac NM exams in prior 12 months: This patient has received 15 known CTs and 0 known cardiac nuclear medicine studies in the 12 months prior to the current study. COMPARISON: MR lumbar spine wo con* [id number] 01/13/2023 7:28 AM RADIATION DOSE METRICS: Total DLP (mGy-cm): 850.88 FINDINGS: Bones/joints: No acute fracture. Normal alignment. L1-L2: No significant disc bulge or herniation. No severe spinal canal stenosis. No significant neural foraminal narrowing. L2-L3: No significant disc bulge or herniation. No severe spinal canal stenosis. No significant neural foraminal narrowing. L3-L4: L3-L4 broad-based disc bulge with mild spinal canal narrowing. L4-L5: L4-L5 broad-based disc bulge with mild spinal canal narrowing. L5-S1: No significant disc bulge or herniation. No severe spinal canal stenosis. No significant neural foraminal narrowing. Kidneys and ureters: Horseshoe kidney, normal variant. Soft tissues: Unremarkable. Other findings: Bilateral punctate non-obstructing calyceal stones. CT/CT lumbar spine wo con* [id number] IMPRESSION: 1. Horseshoe kidney, normal variant. 2. Bilateral punctate non-obstructing calyceal stones. 3. L3-L4 broad-based disc bulge with mild spinal canal narrowing. 4. L4-L5 broad-based disc bulge with mild spinal canal narrowing.
[2023-03-06] MEDS: ondansetron 4 MG Tablet PO (00:48)
[2023-03-06 00:49] VITALS: RESP 18; O2SAT 97
[2023-03-06] MEDS: morphine 4 mg/mL SDV 1 mL IM (00:49)
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
[2023-03-06 01:23] LABS: Amphetamines Screen Urine Negative (Negative); Barbiturates Screen Urine Negative (Negative); Benzodiazepines Screen Urine Positive (Negative); Cocaine Screen Urine Negative (Negative); Opiate Screen Urine Positive (Negative); PCP Screen Urine Negative (Negative); THC Screen Urine Positive (Negative)
[2023-03-06] MEDS: diazePAM 5 mg Tablet PO (01:54)
[2023-03-06 03:01] VITALS: BP 142/88; PULSE 87; RESP 18; O2SAT 97
[2023-03-06 03:03] VITALS: RESP 18; O2SAT 98
[2023-03-06] MEDS: HYDROmorphone 1 mg/mL INJ 1 mL 0.5 MG SUBCUT (03:03)
== END 2023-03-06 03:58 | disposition home or self-care (01) ==
PROVIDERS: Emergency Provider Physician Assistant; PCP Clinical Nurse Specialist Adult Health
DX: M54.2 Cervicalgia (principal); M54.50 Low back pain, unspecified; R11.0 Nausea; Z87.891 Personal history of nicotine dependence; J44.9 Chronic obstructive pulmonary disease, unspecified; E78.5 Hyperlipidemia, unspecified; I10 Essential (primary) hypertension; Z85.048 Personal history of other malignant neoplasm of rectum, rectosigmoid junction, and anus
CPT/HCPCS: 72125; 72131; 80306; 96372; 99284; J1170; J2270; Q0162

== ENCOUNTER → 2023-03-09 15:51 | Outpatient (BNVA) | payer MEDICAID, SELFPAY | PROVIDERS: PCP Clinical Nurse Specialist Adult Health; Visit Provider Orthopaedic Surgery | DX: Z98.1 Arthrodesis status (principal) | CPT/HCPCS: 72040; 99024 ==

== ENCOUNTER → 2023-03-24 14:37 | Outpatient (BNVA) | payer MEDICAID, SELFPAY | PROVIDERS: PCP Family Medicine Adult Medicine; Visit Provider Family Medicine Adult Medicine | DX: R39.9 Unspecified symptoms and signs involving the genitourinary system (principal); J30.9 Allergic rhinitis, unspecified; N20.0 Calculus of kidney | CPT/HCPCS: 81000 ==

== ENCOUNTER → 2023-04-08 15:11 | Outpatient (BNVA) | payer MEDICAID, SELFPAY | PROVIDERS: PCP Family Medicine Adult Medicine; Visit Provider Orthopaedic Surgery | DX: Z98.1 Arthrodesis status (principal) | CPT/HCPCS: 72040; 99024 ==

== ENCOUNTER 2023-05-12 11:57 | Emergency (ER) | payer MEDICAID, SELFPAY ==
--- NOTE | 2023-05-12 | CTR_ITS ---
PROCEDURE INFORMATION: Exam: CT Lumbar Spine With Contrast Exam date and time: 05/12/2023 1:01 PM Age: 53 years old Clinical indication: Low back pain.No history of trauma or recent surgery is provided. TECHNIQUE: Imaging protocol: Computed tomography of the lumbar spine with contrast. Radiation optimization: All CT scans at this facility use at least one of these dose optimization techniques: automated exposure control; mA and/or kV adjustment per patient size (includes targeted exams where dose is matched to clinical indication); or iterative reconstruction. REPORTING DATA: Count of CT and Cardiac NM exams in prior 12 months: This patient has received 13 known CTs and 0 known cardiac nuclear medicine studies in the 12 months prior to the current study. COMPARISON: 1. CT lumbar spine wo con* [id number] 03/05/2023 11:[address] abdomen pelvis w con* [id number] 05/12/2023 1:01 PM 3. MR lumbar spine wo con* [id number] 01/13/2023 7:28 AM RADIATION DOSE METRICS: Total DLP (mGy-cm): As per the technologist's report. FINDINGS: Bones/joints: Osseous alignment is maintained.No interval displaced lumbar fracture or dislocation is appreciated. There is some mild spurring with chronic appearing disc space narrowing at the lumbosacral junction predominantly.Symmetric appearance of the sacral arcuate lines and sacroiliac junctions are appreciated. There is some osseous sacroiliac bridging albeit similar of the superior aspect right more so than left. There is some chronic disc space degenerative appearance at the T10-11 level. There is some vacuum disc phenomenon. There is some mild spurring with chronic appearing disc bulging for example at the L3-L4, L4-L5 and L5-S1 levels. This contributes to some neural foraminal narrowing with [id number] appearance for example including on the right at the L5-S1 level as well as left at the L4-L5 level. Discs/Spinal canal/Neural foramina: No hyperdense spinal canal fluid is appreciated. Soft tissues: No radiopaque foreign body or subcutaneous emphysema is appreciated. Other findings: No other significant interval changes are appreciated. CT/CT lumbar spine recon [id number] IMPRESSION: 1. Osseous alignment is maintained.No interval fracture or dislocation is appreciated. 2. There are some mild chronic appearing disc space degenerative changes relatively similar overall. If there are localized radicular symptoms then consider MRI.
[2023-05-12 12:06] VITALS: BMI 31.3
--- NOTE | 2023-05-12 12:18 | CTR_ITS ---
PROCEDURE INFORMATION: Exam: CT Abdomen And Pelvis With Contrast Exam date and time: 05/12/2023 1:01 PM Age: 53 years old Clinical indication: Abdominal pain; Generalized; Prior surgery; Surgery date: 6+ months; Surgery type: Hernia, colon, prostate; Additional info: R abdominal pain, burning, ecchymosis, previous hernia mesh.No history of trauma or recent surgery is provided. TECHNIQUE: Imaging protocol: Computed tomography of the abdomen and pelvis with contrast. 234image(s) are provided. Radiation optimization: All CT scans at this facility use at least one of these dose optimization techniques: automated exposure control; mA and/or kV adjustment per patient size (includes targeted exams where dose is matched to clinical indication); or iterative reconstruction. Contrast material: OMNI 350; Contrast volume: 100 ml; Contrast route: INTRAVENOUS (IV); Other technique: Axial images are available with sagittal and coronal reconstruction views. Automated dose exposure control is utilized. The DLP is 858.23. REPORTING DATA: Count of CT and Cardiac NM exams in prior 12 months: This patient has received 13 known CTs and 0 known cardiac nuclear medicine studies in the 12 months prior to the current study. COMPARISON: CT abdomen pelvis w con* [id number] 01/07/2023 11:45 AM RADIATION DOSE METRICS: Total DLP (mGy-cm): 858.23 FINDINGS: Tubes, catheters and devices: Pelvic level surgical clip is demonstrated. Lungs: No lobar consolidation is appreciated. There is minimal subsegmental atelectasis versus post inflammatory scarring demonstrated. Liver: There appears to be some mild hepatic steatosis. Gallbladder and bile ducts: Cholecystectomy clips are present. Pancreas: No pancreatic ductal dilatation or calculus is currently appreciated. Spleen: Unremarkable. Adrenal glands: Unremarkable. Kidneys and ureters: There is homogeneous renal parenchymal enhancement with no interval radiopaque obstructive calculus or hydronephrosis appreciated. There is similar overall horseshoe configuration along with some nonobstructive calcific appearance of the calices junction. There is some minimal diverticular change about the insertion of the left ureter similar overall. Stomach and bowel: Some aspects of the colon are undistended. This may also be peristaltic related.There is abundant stool present limiting mucosal detail evaluation.The bowel gas pattern appears nonobstructive. There is a moderate sliding-type hiatal hernia demonstrated with gastroesophageal fold thickening. There is some mild colonic diverticulosis demonstrated. There are some borderline left upper quadrant small bowel loops for example measuring approximately 3 cm although may be peristaltic related.Consider if there is a history of diarrhea or gastroenteritis. Appendix: There is an unremarkable appearance of the appendix demonstrated. Intraperitoneal space: There is some postsurgical mesh type appearance along the anterior peritoneal surface similar overall in appearance and orientation. Vasculature: No interval abdominal aortic aneurysmal dilatation is appreciated. Aortic branch vessel enhancement is appreciated including accessory renal arteries and veins. Lymph nodes: There are subcentimeter predominant para-aortic and mesenteric lymph nodes overall present. Urinary bladder: The bladder contours appear unremarkable overall. Reproductive: There is some prostate level calcification more so on the right similar overall. The there are scrotal level interventional clips demonstrated. Bones/joints: Osseous alignment is maintained.No interval displaced fracture or dislocation is appreciated. There are some degenerative changes of the lumbar spine similar overall. There is some bridging spurring of the sacroiliac joint margin right more so than left. Soft tissues: No radiopaque foreign body or subcutaneous emphysema is appreciated. Other findings: There is some motion artifact present. No other significant interval changes are appreciated. CT/CT abdomen pelvis w con* [id number] IMPRESSION: There is similar anterior abdominal wall mesh type interventional appearance. Overall no interval fluid collections or acute inflammatory stranding changes are appreciated.
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
[2023-05-12 12:30] LABS: Basophils % 0.7 %; Eosinophils # 0.2 10^3/uL (0.0-0.8); Hematocrit 42.7 % (42.0-52.0); Hemoglobin 14.2 g/dL (11.7-16.6); Lymphocytes # 1.8 10^3/uL (0.8-4.8); Lymphocytes % 29.2 %; Mean Corpuscular HGB Conc 33.3 g/dL (30.0-36.0); Mean Corpuscular Hemoglobin 29.8 pg (28.0-34.0); Mean Corpuscular Volume 89.5 fl (80-94); Monocytes # 0.5 10^3/uL (0.2-0.9); Monocytes % 7.8 %; Neutrophils # 3.52 10^3/uL (1.8-7.7); Neutrophils % 58.8 %; Nucleated Red Blood Cells % 0 %; Platelet Count 200 10^3/cmm (130-400); Red Blood Count 4.77 10^6/uL (4.1-5.3); Red Cell Distribution Width 12.9 % (12.1-15.1)
[2023-05-12 12:48] VITALS: BP 154/79; PULSE 71; RESP 15; TEMP 36.6
[2023-05-12 12:53] LABS: Alanine Aminotransferase 25 U/L (0-41); Albumin Level 4.3 g/dL (3.5-5.2); Alkaline Phosphatase 74 U/L (40-130); Anion Gap 13.6 (5-19); Aspartate Amino Transferase 25 U/L (0-40); Blood Urea Nitrogen 13 mg/dL (6-20); Calcium 8.7 mg/dL (8.5-10.5); Carbon Dioxide 26 mmol/L (22-29); Chloride 103 mmol/L (98-107); Globulin 2.5 g/dL (1.3-4.6); Glomerular Filtration Rate 101.1 mL/min (90-130); Glucose 107 mg/dL (65-115); Lipase 24 U/L (13-60); Osmolality Calculated 289 mOsm/kg (285-295); Potassium 3.6 mmol/L (3.5-5.1); Sodium 139 mmol/L (136-145); Total Bilirubin 0.3 mg/dL (0.15-1.2); Total Protein 6.8 g/dL (6.6-8.7)
[2023-05-12] MEDS: ondansetron 2 mg/ML SDV 2 mL 4 MG IVP (13:14)
[2023-05-12] MEDS: morphine 4 mg/mL SDV 1 mL IVP (13:14)
[2023-05-12 13:28] VITALS: BP 152/90; PULSE 55; RESP 14; O2SAT 99
[2023-05-12 14:09] VITALS: BP 143/77; PULSE 46; RESP 15
[2023-05-12 14:31] VITALS: BP 126/79; PULSE 62; RESP 18
== END 2023-05-12 14:32 | disposition home or self-care (01) ==
PROVIDERS: Emergency Provider Physician Assistant; PCP Family Medicine Adult Medicine
DX: S39.011A Strain of muscle, fascia and tendon of abdomen, initial encounter (principal); S39.012A Strain of muscle, fascia and tendon of lower back, initial encounter; J44.9 Chronic obstructive pulmonary disease, unspecified; I10 Essential (primary) hypertension; E78.5 Hyperlipidemia, unspecified; Z79.899 Other long term (current) drug therapy; Z87.891 Personal history of nicotine dependence; X50.0XXA Overexertion from strenuous movement or load, initial encounter
CPT/HCPCS: 36415; 74177; 80053; 83690; 85025; 96374; 96375; 99285; J2270; J2405; Q9967

== ENCOUNTER → 2023-05-25 12:09 | Outpatient (BNVA) | payer MEDICAID, SELFPAY | PROVIDERS: PCP Family Medicine Adult Medicine; Visit Provider Student in an Organized Health Care Education/Training Program | DX: M75.111 Incomplete rotator cuff tear or rupture of right shoulder, not specified as traumatic; M75.41 Impingement syndrome of right shoulder; M19.011 Primary osteoarthritis, right shoulder | CPT/HCPCS: 73030; 99214 ==

== ENCOUNTER → 2023-05-27 13:43 | Outpatient (BNVA) | payer MEDICAID, SELFPAY | PROVIDERS: PCP Family Medicine Adult Medicine; Visit Provider Orthopaedic Surgery | DX: M54.2 Cervicalgia (principal); M54.9 Dorsalgia, unspecified; G89.29 Other chronic pain; Z98.890 Other specified postprocedural states; Z98.1 Arthrodesis status; R29.90 Unspecified symptoms and signs involving the nervous system; G43.711 Chronic migraine without aura, intractable, with status migrainosus; F60.9 Personality disorder, unspecified | CPT/HCPCS: 72040; 99214 ==

== ENCOUNTER 2023-06-01 06:00 | Outpatient (RCR) | payer MEDICAID, SELFPAY | END 2023-06-03 23:59 | disposition home or self-care (01) | LOC: WPT 06:00 | PROVIDERS: Visit Provider Orthopaedic Surgery | DX: M54.2 Cervicalgia (principal); M54.9 Dorsalgia, unspecified; G89.29 Other chronic pain | CPT/HCPCS: 97163 ==

== ENCOUNTER → 2023-06-17 14:15 | Outpatient (BNVA) | payer MEDICAID, SELFPAY | PROVIDERS: Visit Provider Family Medicine | DX: R30.0 Dysuria (principal); Z01.818 Encounter for other preprocedural examination | CPT/HCPCS: 80053; 81000; 85025 ==

== ENCOUNTER → 2023-06-18 13:21 | Outpatient (BNVA) | payer MEDICAID, SELFPAY | PROVIDERS: Visit Provider Family Medicine | DX: R30.0 Dysuria (principal); Z01.818 Encounter for other preprocedural examination | CPT/HCPCS: 81003 ==

== ENCOUNTER 2023-06-24 13:00 | Inpatient (IN) | payer MEDICAID, SELFPAY ==
[2023-06-24] VITALS (32 sets, daily range): BP systolic 114–174; BP diastolic 68–111; PULSE 70–101; RESP 16–18; TEMP 36.4–37.6; O2SAT 94–99
[2023-06-24] MEDS: sodium chloride 0.9% 1,000 ML 30 ML IV (10:20)
[2023-06-24] MEDS: ketorolac 30 mg/mL INJ IVP (10:25)
[2023-06-24] MEDS: acetaminophen 1,000 MG/100 ML PIGGYBACK 400 MG IV (10:25)
--- NOTE | 2023-06-24 10:40 | W.PM.OPSUD ---
Surgery/Procedure H&P Update DATE OF PROCEDURE: June 24, 2023 DATE H&P PERFORMED: 05/25/23 H&P UPDATE INFORMATION: I have reviewed H&P completed within last 30 days, I have examined patient prior to procedure and No changes to prior documentation PREOP DIAGNOSIS: Right shoulder rotator cuff tear, subacromial impingement PRIMARY INDICATION FOR PROCEDURE: Right shoulder rotator cuff tear, subacromial impingement, AC joint edema/arthritis PLANNED PROCEDURE: Operation Date: 06/24/23 11:00 Proposed Procedures p RIGHT SHOULDER DIAGNOSTIC AND SURGICAL ARTHROSCOPY, SUBACROMIAL DECOMPRESSION, [id number],M75.101 M19.019 M75.41(Right) - Luis Manuel Mondragon, DO s Subacromial Decompression(Right) - Luis Manuel Mondragon DO s POSSIBLE ROTATOR CUFF DEBRIDEMENT VERSUS REPAIR(Right) - Luis Manuel Mondragon, DO s POSSIBLE ACROMIOCLAVICULAR JOINT RESECTION(Right) - Luis Manuel Mondragon, DO
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
[2023-06-24] MEDS: ondansetron 2 mg/ML SDV 2 mL 4 MG IVP (10:52)
--- NOTE | 2023-06-24 10:52 | ANES.PROC ---
Anesthesia Procedures Procedure/Date: 06/24/23 Nerve Block ^: Nerve Block 1: Main Anesthesia: general anesthesia Time Out Performed: Yes Consent: requested by attending/covering physician, from patient, from other, risks and benefits reviewed and patient agrees to proceed Nerve block location: interscalene (R) Anesthesia monitors applied: pulse oximetry, EKG, BP cuff and oxygen Nerve block position: semi sitting Anesthetic Used: ropivicaine 0.5% (20 ml) and with decadron (4 mg) Ultrasound used to: recognize landmarks and visualize and ID interscalene groove Nerve Stimulator Used?: No Interscalene/Femoral BLK: 2 stimuplex 22 g needle used for position and inplane approach, visualize local anesthetic spread and no vascular puncture identified Injection: neg aspiration of heme Patient Tolerated Procedure: well Complications: none
[2023-06-24] MEDS: vancomycin 1,500 MG/300 ML PIGGYBACK 200 MG IV (11:22)
--- NOTE | 2023-06-24 12:01 | XR_ITS ---
WS: [id number] XR chest 1V portable [id number] REASON FOR EXAM: Surgery FINDINGS: Endotracheal tube in place 2 cm proximal to the isidro. Elevation of the right hemidiaphragm with a degree of atelectasis in the right lower lung. No other p ulmonary parenchymal or pleural abnormality is identified. Specifically no pneumothorax or pneumomedi astinum. No pulmonary edema. IMPRESSION: Elevation of the left hemidiaphragm with partial atelectasis in the adjacent right lower lung. Findin gs on this chest x-ray were discussed with the anesthesiologist over the 1223 06/24/2023. Right hemidiaphragm elevation is secondary to nerve block. Atelectasis in the right lower lung is sec ondary to the right hemidiaphragm elevation.
--- NOTE | 2023-06-24 12:07 | ECG_ITS ---
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 Measurements Intervals [place] Rate: 95 P: 59 TX: 134 QRS: -52 QRSD: 103 T: 56 QT: 374 QTc: 471 Interpretive Statements SINUS RHYTHM LEFT AXIS DEVIATION [QRS AXIS < -30] INCOMPLETE RIGHT BUNDLE BRANCH BLOCK [90+ ms QRS DURATION, TERMINAL R IN V1/V2, 40+ ms S IN I/aVL/V4/V5/V6] Compared to ECG 02/10/2023 09:12:36 Left-axis deviation now present Sinus bradycardia no longer present T-wave abnormality no longer present Electronically Signed On 06-24-2023 14:02:57 CDT by Darwin Hand M.D. [id number]
--- NOTE | 2023-06-24 13:23 | P.MISC_ITS ---
Miscellaneous Note Purpose of Documentation: Orthopedic note: This note is to document timing and sequences of care for Paco Escobedo: 08-14:15: I was notified by nursing staff in the preoperative area roughly between and 1114 after patient had received preoperative block in preparation for surgery. He was initially seen evaluated by me with an updated H&P performed with no issues at that time. Nursing at that time first confirmed that vancomycin would be the antibiotic of choice. I at this point in time had a detailed discussion with the patient about his wrist allergies to multiple antibiotics we confirmed he had a what sounded like an anaphylaxis reaction to penicillin he is allergic to ciprofloxacin as well as clindamycin. I reviewed his medical record and he has had surgeries with spine surgery this past year and reviewing his records he had received clindamycin on both of those as well as appeared to have vancomycin in February. Currently reviewing of his allergy listing clindamycin does state itching and as a result I feel this would be an appropriate option. I stated with patient which one he thought it was he was not sure if it was vancomycin or clindamycin and given his review of medical record he does not appear to have any allergies or reactions to vancomycin as a result I did contact the inpatient pharmacist to verify at this point time was determined vancomycin would be his current best option given his other significant allergic reactions to other antibiotics. As result I did follow-up and speak with him as well as his family member in the preoperative area and we agreed to proceed with the vancomycin. Also he states he was having some issues preoperatively after the block with some slight shortness of breath and I did have the anesthesiologist evaluate the patient and and defer to their treatment recommendation as well as note patient was determined to being cleared to proceed with surgical intervention. Patient was then subsequently taken to the operative suite and refer to intraoperative documentation and timing for exact times as well as defer to anesthesia intra-operative event note for details. It appeared after induction and positioning in the lateral decubitus position prior to prepping for the surgery patient began to have bronchospasm and difficulty with ventilation and concern for possible anaphylactic reaction to medications given intraoperatively. As result defer to anesthesia's intraoperative note for sequence of events as well as medications given in management of patient. Decision was obviously made at that time to cancel and abort proceeding with the surgery patient was stabilized by the anesthesia team patient was extubated in the OR and was taken to ICU. I did staff sequence of events with Dr. Garcia the hospitalist who is assuming patient's care. Patient was evaluated in ICU and was able to follow simple commands he was extubated he was starting to wean down already on the epinephrine drip. Will defer to hospitalist for continued management and care After assuring patient appropriate handoff in the ICU I then did go speak with family as well as daughter about patient's status and intraoperative event. At this point in time it does appear this is likely more of an anaphylactic reaction to medications confirming with anesthesia this could have been 1 of patient's anesthetic medications given such as rocuronium and patient just had started per [employer] of roughly only 5 cc of vancomycin as result of these 2 could possibly be the agents of reaction at this point time would recommend these be marked until we have further allergy testing. Family was educated on the events as well as the the ins and outs and patient is overall at this point has responded well due to the excellent care of our anesthesia team and he is currently in ICU he is able to follow commands. At this point in time we will hold off on his surgery and likely will need to get him set up with an dietary aid so that way we know what antibiotics he will be able to get during surgeries as well as for any types of infection as he does seem to have significant reactions to most antibiotics as well as any of the other anesthetic events to make sure what anesthetic medications can be given. Family understands and agrees with current plan and are appreciative of care. 4 PM to 4:30 PM?patient was seen evaluated in ICU. Educated on sequence of events he understands and is appreciative of her care educated at this point time we will try and get him in with an dietary aid as far as pertaining to what medications particularly antibiotics and anesthetics that he can tolerate for further procedures given what appears to been an anaphylactic reaction. Orthopedics will continue to follow while he is in the hospital appreciate hospitalist for medical management. Will defer to them for any further care and treatment.
--- NOTE | 2023-06-24 13:30 | PM.MISC ---
Miscellaneous Note Purpose of Documentation: Intraoperative Event Note: Patient induced and intubated for procedure. Shortly after placing patient in L lateral recumbent positioning, suspected bronchospasm ensued as patient became difficult to ventilate with peak pressures in the 50s cmH20. Albuterol, ketamine, and glycopyrolate administered in rapid succession, all without impressive response. Additionally, the BP dropped to systolics of 50s. Patient placed in supine position. And BP was treated with phenylephrine, vasopressin, norepi, and epi boluses for blood pressure. Suspected anaphylactic shock was treated with benadryl, solumedrol, terbutaline SC, and further epi. Rafa was reversed with Sugamadex. 12-lead EKG was unrevealing and stat CXR revealed only R-sided hemidiaphgragmatic paralysis (expected normal reaction with interscalene block) and some atelectasis. Fluids, albumin and a 100 cc bolus of intralipid were administered for volume and for any potential delayed local anesthesthetic toxicity. A-line and additional venous access secured. Patient then woke from his anesthetic and we extubated him successfully. Immediately following simple commands. Brought to ICU only on epi gtt, which was weaned down to epi 6 mcg/min. Report given to hospitalist via telephone. Spoke with patient family regarding event, all questions, answered. Recommended testing with educational guidance counselor for suspected anaphylactic or anaphylactoid reaction.
[2023-06-24 14:12] LABS: Basophils # 0.1 10^3/uL (0.0-0.1); Basophils % 0.3 %; Eosinophils # 0.3 10^3/uL (0.0-0.8); Hematocrit 52.1 % (37-53); Lymphocytes # 2.2 10^3/uL (0.8-4.8); Lymphocytes % 7.9 %; Mean Corpuscular HGB Conc 33.6 g/dL (30-55); Mean Corpuscular Hemoglobin 30.3 pg (27-33); Mean Corpuscular Volume 90.1 fl (82-101); Mean Platelet Volume 11.4 fL (7.4-10.4); Monocytes # 0.4 10^3/uL (0.2-0.9); Monocytes % 1.4 %; Neutrophils # 24.32 10^3/uL (1.8-7.7); Neutrophils % 88.2 %; Nucleated Red Blood Cells % 0 %; Platelet Count 280 10^3/cmm (157-399); Red Blood Count 5.78 10^6/uL (3.85-5.65); Red Cell Distribution Width 12.8 % (12.1-15.1); White Blood Count 27.58 10^3/uL (3.29-11.43)
[2023-06-24] MEDS: albuterol 2.5 mg/3 mL Neb INHALATION ×2 (14:41→19:54)
[2023-06-24 14:45] LABS: INR 1.25 (0.8-1.2); Troponin(5th) Baseline 60 ng/L (0-15)
[2023-06-24 14:46] LABS: Lactic Sepsis W/Reflex 3.6 mmol/L (0.5-2.2)
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
[2023-06-24 14:55] LABS: Thyroid Stimulating Hormone 6.54 uIU/mL (0.27-4.20)
--- NOTE | 2023-06-24 14:56 | ECG_ITS ---
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 Measurements Intervals [place] Rate: 77 P: 67 OK: 161 QRS: -33 QRSD: 100 T: 31 QT: 420 QTc: 477 Interpretive Statements SINUS RHYTHM LEFT AXIS DEVIATION [QRS AXIS < -30] INCOMPLETE RIGHT BUNDLE BRANCH BLOCK [90+ ms QRS DURATION, TERMINAL R IN V1/V2, 40+ ms S IN I/aVL/V4/V5/V6] Compared to ECG 06/24/2023 12:07:25 No significant changes Electronically Signed On 06-24-2023 15:03:17 CDT by Darwin Hand M.D. [id number]
[2023-06-24 15:39] LABS: Vancomycin Trough < 4.0 ug/mL (10-15)
[2023-06-24 15:50] LABS: Alanine Aminotransferase 23 U/L (0-41); Alkaline Phosphatase 74 U/L (40-130); Blood Urea Nitrogen 16 mg/dL (6-20); Calcium 8.1 mg/dL (8.5-10.5); Carbon Dioxide 21 mmol/L (22-29); Chloride 107 mmol/L (98-107); Globulin 1.9 g/dL (1.3-4.6); Glomerular Filtration Rate 101.1 mL/min (90-130); Glucose 199 mg/dL (65-115); Magnesium 1.5 mg/dL (1.7-2.3); NT Pro B Type Natriuretic Pept 36 pg/mL (0-125); Osmolality Calculated 297 mOsm/kg (285-295); Phosphorus 2.4 mg/dL (2.5-4.5); Sodium 140 mmol/L (136-145); Total Bilirubin 0.5 mg/dL (0.15-1.2); Total Protein 5.9 g/dL (6.6-8.7)
[2023-06-24 15:56] LABS: Reflex Lactate Order REFLEX LACTIC ORDERD
[2023-06-24 16:00] LABS: Anion Gap 15.4 (5-19); Aspartate Amino Transferase 24 U/L (0-40); Potassium 3.4 mmol/L (3.5-5.1)
[2023-06-24 16:44] LABS: Troponin 5 2HR 76.52 ng/L (0-15)
[2023-06-24 16:50] LABS: Troponin 5 2HR Delta 16.52 ABS# (0-10)
[2023-06-24] MEDS: metoclopramide 5 mg/mL SDV 2 mL IVP (18:02)
[2023-06-24] MEDS: HYDROcodone-acetaminophen 10-325 mg Tablet 1 TAB PO (18:08)
[2023-06-24 18:26] LABS: Lactic Acid level (Lactate) 3.4 mmol/L (0.5-2.2)
[2023-06-24] MEDS: magnesium sulfate premix 1 GM/100 ML PIGGYBACK IV (19:00)
[2023-06-24] MEDS: sodium chloride 0.9% 1,000 ML 100 ML IV (19:43)
[2023-06-24] MEDS: scopolamine 1.5 Patch 1 PATCH TRANSDERMA (19:44)
[2023-06-24 19:53] LABS: Estmated Average Glucose 100; Hemoglobin A1C 5.1 % (4.0-6.0)
[2023-06-24] MEDS: budesonide 0.5 mg/2 mL Neb INHALATION (19:54)
[2023-06-24 21:15] LABS: Troponin 5 6HR 99.29 ng/L (0-15)
[2023-06-24] MEDS: enoxaparin 40 mg/0.4 mL Syringe SUBCUT (21:15)
[2023-06-24] MEDS: methylPREDNISolone sod succ 40 MG in water for injection-sterile 1 ML 12 MG IVP (21:15)
--- NOTE | 2023-06-24 21:25 | ECG_ITS ---
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 Measurements Intervals [place] Rate: 92 P: 50 [place]: 159 QRS: -20 QRSD: 100 T: 19 QT: 353 QTc: 437 Interpretive Statements SINUS RHYTHM Compared to ECG 06/24/2023 14:56:33 Left-axis deviation no longer present Incomplete right bundle-branch block no longer present Electronically Signed On 06-24-2023 21:43:00 CDT by Darwin Hand M.D. [id number]
[2023-06-24 21:27] LABS: Troponin 5 6HR Delta 39.29 ng/L (0-12)
[2023-06-24] MEDS: promethazine 25 mg Tablet 12.5 MG PO (21:59)
[2023-06-24] MEDS: oxyCODONE 5 mg IR Tab/Cap 10 MG PO (22:01)
[2023-06-24] MEDS: famotidine 20 mg/2 mL INJ IVP (23:11)
[2023-06-25] VITALS (56 sets, daily range): BP systolic 102–180; BP diastolic 55–121; PULSE 61–96; RESP 14–35; O2SAT 92–100
[2023-06-25] MEDS: HYDROcodone-acetaminophen 10-325 mg Tablet 1 TAB PO (02:09)
[2023-06-25] MEDS: metoclopramide 5 mg/mL SDV 2 mL IVP ×3 (02:13→19:09)
[2023-06-25 04:44] LABS: Basophils % 0.1 %; Hematocrit 42.1 % (37-53); Lymphocytes % 4.5 %; Mean Corpuscular Hemoglobin 29.8 pg (27-33); Mean Corpuscular Volume 87.7 fl (82-101); Mean Platelet Volume 11.1 fL (7.4-10.4); Monocytes # 0.9 10^3/uL (0.2-0.9); Neutrophils # 19.22 10^3/uL (1.8-7.7); Neutrophils % 90.5 %; Nucleated Red Blood Cells % 0 %; Platelet Count 193 10^3/cmm (157-399); Red Cell Distribution Width 12.6 % (12.1-15.1); White Blood Count 21.25 10^3/uL (3.29-11.43)
[2023-06-25 05:03] LABS: Anion Gap 13.1 (5-19); Blood Urea Nitrogen 13 mg/dL (6-20); Calcium 8.1 mg/dL (8.5-10.5); Carbon Dioxide 25 mmol/L (22-29); Chloride 106 mmol/L (98-107); Glomerular Filtration Rate 140.9 mL/min (90-130); Glucose 119 mg/dL (65-115); Osmolality Calculated 291 mOsm/kg (285-295); Potassium 4.1 mmol/L (3.5-5.1); Sodium 140 mmol/L (136-145)
[2023-06-25] MEDS: sodium chloride 0.9% 1,000 ML 100 ML IV (05:23)
[2023-06-25] MEDS: oxyCODONE 5 mg IR Tab/Cap 10 MG PO ×4 (05:23→20:09)
[2023-06-25] MEDS: methylPREDNISolone sod succ 40 MG in water for injection-sterile 1 ML 12 MG IVP ×2 (05:23→18:34)
--- NOTE | 2023-06-25 05:46 | USCV_ITS ---
Paco Escobedo Age: 53 Gender: M : 1970 Exam Date: 06/25/2023 14:45 Ordering Phys: Ilda Jones MD Technologist: Zachary Sheffield Exam Location: [facility] – [place] Indication: CHEST PAIN BP: 154 / 103 HR: 71 Rhythm: Sinus Technical Quality: Adequate MEASUREMENTS (Male / Female) Normal Values 2D ECHO LV Diastolic Diameter PLAX 3.9 cm 4.2 - 5.9 / 3.9 - 5.3 cm LV Systolic Diameter PLAX 2.5 cm IVS Diastolic Thickness 1.2 cm 0.6 - 1.0 / 0.6 - 0.9 cm IVS Systolic Thickness 1.5 cm LVPW Diastolic Thickness 1.2 cm 0.6 - 1.0 / 0.6 - 0.9 cm LVPW Systolic Thickness 1.2 cm LVOT Diameter 2.0 cm LV Ejection Fraction 2D Teich 52.9 % LV Ejection Fraction MOD 2C 68.1 % LV Ejection Fraction 2C AL 68.8 % LA Diameter 3.6 cm IVC Diameter 2.5 cm M-MODE Aortic Annulus Diameter 4.0 cm LA Ao Ratio MM 1.0 MV E Point Septal Separation 1.2 cm DOPPLER AV Peak Velocity 135.0 cm/s LVOT Peak Velocity 68.0 cm/s AV Area Cont Eq vti 2.2 cm squared AV Area Cont Eq pk 1.6 cm squared MV Area PHT 3.9 cm squared Mitral E to A Ratio 1.1 MV E' Velocity 54.5 cm/s Mitral E to MV E' Ratio 10.9 Mitral E to LV E' Lateral Ratio 10.4 Mitral E to LV E' Septal Ratio 11.4 TR Peak Velocity 141.3 cm/s TR Peak Gradient 8.0 mmHg TV Peak E Velocity 105.0 cm/s Right Atrial Pressure 3.0 mmHg Pulmonary Artery Systolic Pressu 11.0 mmHg RV Acceleration Time 0.1 s FINDINGS Left Ventricle Left ventricle is normal in size. LV systolic function is normal with EF of 55 to 60%. No regional wall motion normalities. Right Ventricle Normal in size and function Right Atrium Normal size Left Atrium Normal in size Mitral Valve Structurally normal mitral valve. Trace mitral regurgitation Aortic Valve Structurally normal aortic valve. No significant stenosis or regurgitation. Tricuspid Valve Mild tricuspid regurgitation. Insufficient TR jet to calculate RVSP. Pulmonic Valve Not well-visualized Pericardium Normal Aorta Normal in size IVC Appears to be normal CONCLUSIONS LV systolic function is normal with EF of 55-60% Trace mitral regurgitation Mild tricuspid regurgitation Compared to prior echocardiogram from 2021, no significant changes are seen. Darwin Hand MD (Electronically Signed) Final Date: 26 June 2023 11:02 S
--- NOTE | 2023-06-25 07:00 | XR_ITS ---
WS: [id number] XR chest 1V portable [id number] REASON FOR EXAM: sob FINDINGS: Moderate tortuosity of the thoracic aorta. Heart size at the upper limits of normal. Calcified granulomas disease in both hemithoraces. No active pulmonary parenchymal or pleural disease noted. Minimal residual atelectasis in the right lower lung compared to the intraoperative examination. Righ t hemidiaphragm not significantly elevated. No other interval change or new finding. IMPRESSION: Right hemidiaphragm no longer elevated and significant resolution of previous atelectasis in right lo wer lung. No new findings.
[2023-06-25] MEDS: aspirin 81 mg EC Tablet PO (07:45)
[2023-06-25] MEDS: cetirizine 10 mg Tablet PO (07:45)
[2023-06-25] MEDS: enoxaparin 100 mg/mL Syringe 90 MG SUBCUT ×2 (07:45→19:34)
[2023-06-25] MEDS: albuterol 2.5 mg/3 mL Neb INHALATION ×2 (09:07→19:43)
[2023-06-25] MEDS: budesonide 0.5 mg/2 mL Neb INHALATION ×2 (09:08→19:44)
--- NOTE | 2023-06-25 12:10 | P.MISC_ITS ---
Miscellaneous Note Purpose of Documentation: Orthopedic note: This note is to document timing and sequences of care for Paco Escobedo: 08-14:15: I was notified by nursing staff in the preoperative area roughly between and 1114 after patient had received preoperative block in preparation for surgery. He was initially seen evaluated by me with an updated H&P performed with no issues at that time. Nursing at that time first confirmed that vancomycin would be the antibiotic of choice. I at this point in time had a detailed discussion with the patient about his wrist allergies to multiple antibiotics we confirmed he had a what sounded like an anaphylaxis reaction to penicillin he is allergic to ciprofloxacin as well as clindamycin. I reviewed his medical record and he has had surgeries with spine surgery this past year and reviewing his records he had received clindamycin on both of those as well as appeared to have vancomycin in February. Currently reviewing of his allergy listing clindamycin does state itching and as a result I feel this would be an appropriate option. I stated with patient which one he thought it was he was not sure if it was vancomycin or clindamycin and given his review of medical record he does not appear to have any allergies or reactions to vancomycin as a result I did contact the inpatient pharmacist to verify at this point time was determined vancomycin would be his current best option given his other significant allergic reactions. As result I did speak with him as well as his family member in the preoperative area and we agreed to proceed with the vancomycin. Also he states he was having some issues preoperatively after the block with some slight shortness of breath and I did have the anesthesiologist evaluate the patient and and defer to their treatment recommendation as well as note patient was determined to being cleared to proceed with surgical interve ntion. Patient was then subsequently taken to the operative suite and refer to intraoperative documentation and timing for exact times as well as defer to anesthesia intra-operative event note for details. It appeared after induction and positioning in the lateral decubitus position prior to prepping for the surgery patient began to have bronchospasm and difficulty with ventilation and concern for possible anaphylactic reaction to medications given intraoperatively. As result defer to anesthesia's intraoperative note for sequence of events as well as medications given in management of patient. Decision was obviously made at that time to cancel and abort proceeding with the surgery patient was stabilized by the anesthesia team patient was extubated in the OR and was taken to ICU. I did staff sequence of events with Dr. Garcia the hospitalist who is assuming patient's care. Patient was evaluated in ICU and was able to follow simple commands he was extubated he was starting to wean down already on the epinephrine drip. Will defer to hospitalist for continued management and care After assuring patient appropriate handoff in the ICU I then did go speak with family as well as daughter about patient's status and intraoperative event. At this point in time it does appear this is likely more of an anaphylactic reaction to medications confirming with anesthesia this could have been 1 of patient's anesthetic medications given such as rocuronium and patient just had started per [employer] of roughly only 5 cc of vancomycin as result of these 2 could possibly be the agents of reaction at this point time would recommend these be marked until we have further allergy testing. Family was educated on the events as well as the the ins and outs and patient is overall at this point has responded well due to the excellent care of our anesthesia team and he is currently in ICU he is able to follow commands. At this point in time we will hold off on his surgery and likely will need to get him set up with an economic consultant so that way we know what antibiotics he will be able to get during surgeries as well as for any types of infection as he does seem to have significant reactions to most antibiotics as well as any of the other anesthetic events to make sure what anesthetic medications can be given. Family understands and agrees with current plan and are appreciative of care. 4 PM to 4:30 PM?patient was seen evaluated postoperatively.
--- NOTE | 2023-06-25 12:34 | P.PN_ITS ---
Subjective Subjective: Patient overall is stating he is feeling better. Still continues to have shoulder pain continue with current pain regimen at this time which pain is controlled with medications. Appreciate internal medicine's medical management and assistance we will update his current allergy list and he understands that we will try and get a allergy work-up for appropriate antibiotic treatments from here on out for any other surgical interventions or any infections if he needs. Vitals/I&O/Wt Last Vital Signs Temp 99.6 F 06/24/23 19:00 Pulse 67 06/25/23 10:00 Resp 24 H 06/25/23 10:00 BP 156/94 06/25/23 10:00 Pulse Ox 97 06/25/23 10:00 O2 Del Method Room Air 06/25/23 08:50 O2 Flow Rate 3 06/24/23 19:55 06/24/23 06/25/23 06/25/23 22:59 06:59 14:59 Intake Total 1311.667 / 1411.667 360 / 360 Output Total 1000 / 1000 1000 / 2000 Balance -1000 / -900 311.667 / -588.333 360 / 360 Weight last 48 hrs Weight 205 lb Physical Exam Narrative: Examination of the right upper extremity: The right shoulder regional anesthesia has worn off he is able to actively range the shoulder today with gross motor and sensory is intact. Continues to have persistent pain on end ranges of motion of the shoulder Urinary Catheter Management: Wiggins: Cath Placed During This Visit: yes Reason for Continuing Indwelling Catheter: Accurate Measurement of Urinary Output in Critically Ill Patients Urinary Catheter Date of Insertion: 06/24/23 Urinary Catheter Time of Insertion: 12:00 Data 06/25/23 04:21 06/25/23 04:21 A&P Assessment and plan (1) Anaphylactic reaction: (2) AC (acromioclavicular) joint arthritis: (3) Subacromial impingement of right shoulder: (4) Rotator cuff tear, right: Plan No further orthopedic intervention at this time We will hold on any shoulder arthroscopy procedure 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 All questions answered. Attestations Medical Necessity Statement*: Status post aborted surgery secondary to anaphylactic reaction intraoperatively, continued monitored care by internal medicine Coding Level of Care Code Acute Code for Chg Fwd Diagnoses Anaphylactic reaction T78.2XXA AC (acromioclavicular) joint arthritis M19.019 Subacromial impingement of right shoulder M75.41 Rotator cuff tear, right M75.101 Time Spent (min) 15
--- NOTE | 2023-06-25 13:08 | PM.PN ---
Subjective Subjective: Patient was seen this morning, denies any chest pain, no palpitations, does report some trouble swallowing intermittently, he tells me his facial swelling, lip and tongue swelling have significantly resolved, no nausea, vomiting, abdominal pain, no shortness of breath, we discussed his elevated troponins, I think the elevated troponins are likely from his hypotensive episode is anaphylactic shock, however given his age, his prior history of CAD we need to evaluate for also underlying cardiac etiology, currently he is on blood thinners, which will continue for at least 48 hours, perform a cardiac echocardiogram watch him here as inpatient, his most recent EKG did not show any acute ST-T wave changes, he is agreeable, we will wean his steroids, have PT OT work with him, watch him for 24 hours Vitals/I&O/Wt Last Vital Signs Temp 99.6 F 06/24/23 19:00 Pulse 67 06/25/23 10:00 Resp 24 H 06/25/23 10:00 BP 156/94 06/25/23 10:00 Pulse Ox 97 06/25/23 10:00 O2 Del Method Room Air 06/25/23 08:50 O2 Flow Rate 3 06/24/23 19:55 06/24/23 06/25/23 06/25/23 22:59 06:59 14:59 Intake Total 1311.667 / 1411.667 360 / 360 Output Total 1000 / 1000 1000 / 2000 Balance -1000 / -900 311.667 / -588.333 360 / 360 Weight last 48 hrs Weight 92.986 kg Physical Exam Const: COMMON NORMALS: no acute distress and patient oriented x3 Resp: COMMON NORMALS: normal respiratory effort, No retractions, No use of accessory muscles and clear to auscultation bilaterally AUSCULTATION: clear to auscultation bilaterally Cardio: COMMON NORMALS: regular rate, regular rhythm, S1 normal heart sound present and S2 normal heart sound present RATE: regular rate RHYTHM: regular rhythm HEART SOUNDS: S1 normal heart sound present and S2 normal heart sound present GI: COMMON NORMALS: Normal to inspection, nondistended, normoactive bowel sounds present and non-tender Extremity: COMMON NORMALS: no pedal edema Neuro: COMMON NORMALS: patient oriented x3 Psych: COMMON NORMALS: mental status grossly normal Urinary Catheter Management: Wiggins: Cath Placed During This Visit: yes Reason for Continuing Indwelling Catheter: Accurate Measurement of Urinary Output in Critically Ill Patients Urinary Catheter Date of Insertion: 06/24/23 Urinary Catheter Time of Insertion: 12:00 Data 06/25/23 04:21 06/25/23 04:21 A&P Assessment and plan (1) Anaphylactic reaction: (2) Shock: (3) Chest pain: (4) Vancomycin adverse reaction: (5) Shortness of breath: Plan Anaphylactic reaction -Potentially vancomycin is a causative agent, as this is a common denominator between the both surgeries and his prior surgery in February -Other possibilities could be rocuronium -He is already received Solu-Medrol, albuterol, ketamine, glycol oral late,, vasopressin, nor epi, epi, phenylephrine,, fluids, albumin, specifically extubated, currently on epi at 6 mcg Plan -Monitor in ICU closely -Weaned off epinephrine drip -Arterial line out, normotensive Space Solu-Medrol 40 IV every 12 hours -Stop IV fluids -Continue Pepcid -Continue albuterol -Start cetirizine -Monitor respiratory status closely -We will continue CPAP for history of sleep apnea -Speech therapy eval ? We will need allergy testing as outpatient, as patient has multiple antibiotic allergies, this will be an issue for him in the near future ? We will discharge with EpiPen NSTEMI -Had chest pain complaints yesterday, none currently -Serial EKGs, serial troponins, telemetry monitoring -Current EKG no acute ST-T wave changes -6-hour troponin 99.29, 6-hour 39.29 -Does report a history of CAD -Type I versus type II -Did have significant hypotension, anaphylactic reaction as above -We will order cardiac echo -Continue Lovenox for at least 48 hours -Aspirin, statin, beta-mackenzie -Consider patient to follow-up with cardiology as outpatient for consideration of stress testing versus inpatient evaluation based on clinical progress -Full code -Lovenox for DVT prophylaxis Attestations Medical Necessity Statement*: Patient requires hospitalization for anaphylactic reaction, anaphylaxis, NSTEMI, chest pain Diagnoses Anaphylactic reaction T78.2XXA Shock R57.9 Chest pain R07.9 Vancomycin adverse reaction T36.8X5A Shortness of breath R06.02
[2023-06-25] MEDS: metoprolol succinate ER (24 HR) 25 mg Tablet PO (13:23)
[2023-06-25] MEDS: famotidine 20 mg/2 mL INJ IVP ×2 (13:23→23:19)
[2023-06-25] MEDS: isosorbide mononitrate ER 30 mg Tablet PO (18:33)
[2023-06-25] MEDS: tamsulosin 0.4 mg Capsule PO (18:34)
[2023-06-25] MEDS: docusate sodium 100 mg Capsule PO (18:34)
[2023-06-25] MEDS: atorvastatin 40 mg Tablet PO (20:09)
[2023-06-25] MEDS: diazePAM 5 mg Tablet PO (20:10)
[2023-06-26] VITALS (22 sets, daily range): BP systolic 120–189; BP diastolic 63–91; PULSE 49–105; RESP 15–29; TEMP 36.7; O2SAT 93–97
[2023-06-26] MEDS: oxyCODONE 5 mg IR Tab/Cap 10 MG PO ×2 (01:16→06:54)
[2023-06-26] MEDS: acetaminophen 325 mg Tablet 650 MG PO (01:17)
[2023-06-26] MEDS: metoclopramide 5 mg/mL SDV 2 mL IVP (04:36)
[2023-06-26] MEDS: diazePAM 5 mg Tablet PO (04:41)
[2023-06-26 04:44] LABS: Basophils % 0.1 %; Eosinophils % 0.1 %; Hematocrit 38.8 % (37-53); Lymphocytes # 1.7 10^3/uL (0.8-4.8); Lymphocytes % 12.5 %; Mean Corpuscular HGB Conc 33.2 g/dL (30-55); Mean Corpuscular Hemoglobin 29.6 pg (27-33); Mean Platelet Volume 11.8 fL (7.4-10.4); Monocytes # 0.5 10^3/uL (0.2-0.9); Monocytes % 3.5 %; Neutrophils # 11.38 10^3/uL (1.8-7.7); Neutrophils % 83.4 %; Nucleated Red Blood Cells % 0 %; Platelet Count 191 10^3/cmm (157-399); Red Blood Count 4.36 10^6/uL (3.85-5.65); Red Cell Distribution Width 12.7 % (12.1-15.1); White Blood Count 13.65 10^3/uL (3.29-11.43)
[2023-06-26 05:10] LABS: Anion Gap 10.1 (5-19); Blood Urea Nitrogen 10 mg/dL (6-20); Calcium 8.4 mg/dL (8.5-10.5); Carbon Dioxide 29 mmol/L (22-29); Chloride 103 mmol/L (98-107); Glomerular Filtration Rate 140.9 mL/min (90-130); Glucose 118 mg/dL (65-115); Osmolality Calculated 286 mOsm/kg (285-295); Potassium 4.1 mmol/L (3.5-5.1); Sodium 138 mmol/L (136-145)
[2023-06-26] MEDS: methylPREDNISolone sod succ 40 MG in water for injection-sterile 1 ML 12 MG IVP (05:42)
[2023-06-26] MEDS: albuterol 2.5 mg/3 mL Neb INHALATION (08:12)
[2023-06-26] MEDS: budesonide 0.5 mg/2 mL Neb INHALATION (08:12)
[2023-06-26] MEDS: tamsulosin 0.4 mg Capsule PO (08:18)
[2023-06-26] MEDS: docusate sodium 100 mg Capsule PO (08:18)
[2023-06-26] MEDS: cetirizine 10 mg Tablet PO (08:19)
[2023-06-26] MEDS: aspirin 81 mg EC Tablet PO (08:19)
[2023-06-26] MEDS: metoprolol succinate ER (24 HR) 25 mg Tablet PO (08:19)
[2023-06-26] MEDS: isosorbide mononitrate ER 30 mg Tablet PO (08:19)
[2023-06-26] MEDS: enoxaparin 100 mg/mL Syringe 90 MG SUBCUT (08:20)
[2023-06-26] MEDS: polyethylene glycol 3350 Pkt 17 gm PO (08:21)
[2023-06-26] MEDS: ondansetron 2 mg/ML SDV 2 mL 4 MG IVP (08:42)
--- NOTE | 2023-06-26 10:46 | PM.DCS ---
Discharge Providers Date of Admission: 06/24/23 13:00 Date of Discharge: June 26, 2023 Attending Provider at Admission: Luis Manuel Mondragon DO Attending Provider at Discharge: Hussain Garcia MD Primary Care Provider: Qamar Perez MD Diagnoses at Discharge Discharge Diagnosis (1) Anaphylactic reaction: Status: Acute (2) Shock: Status: Acute (3) Chest pain: Status: Inactive (4) Vancomycin adverse reaction: Status: Acute (5) Shortness of breath: Status: Acute Reason for Visit Reason for Visit: 53608 M75.101 Hospital Course Hospital Course Paco Escobedo is a 53 year old male with past medical, COPD, obstructive sleep apnea, history of CAD, history of peptic ulcer disease, anxiety, depression, GERD, who currently is in the intensive care unit for concerns for adverse medication reaction and/or anaphylaxis, currently on epinephrine drip, alert oriented x3, following all commands, on 4 L, normotensive, patient's is at bedside.? Patient tells me that when he had his neck surgery by Dr. Leyva back in February, he had a lip swelling, trouble breathing, tongue swelling, after he received vancomycin, or possibly clindamycin, but he quickly recovered, he tells me that this happened in his preoperative period before his neck surgery, he tells me that one of the antibiotics was stopped, he he is not exactly sure which one, and he went into surgery and came out fine.? He is not sure if he is ever received vancomycin before.? He has had multiple other surgeries, he is not sure if he received vancomycin during those surgeries, he does not report a allergy to fentanyl, or Versed, or other anesthetics in his prior surgeries.? He does have a anaphylactic reaction to penicillins, but his does tell me that he has received Keflex sometime in his past without adverse side effects.? He has never had any allergy testing.? Currently complaining of shortness of breath and chest pain, his telemetry does not show any acute ST-T wave changes, no significant tachycardia, he is has good air entry bilaterally on 4 L, he tells me he is very thirsty he would like something to drink.,? Denies a history of angioedema, denies using lisinopril as outpatient, no adverse reaction to NSAIDs, does use a beta-mackenzie as outpatient Patient was admitted to [facility] for anaphylactic reaction, causative agent, likely vancomycin versus rocuronium, please look at my discussion as below, in the operating room he was hypotensive, he required Solu-Medrol, albuterol, ketamine, vasopressin, epi, epi, fluids, albumin, moved to the ICU on epinephrine drip, he was extubated, he was weaned off epinephrine drip, managed with cetirizine, fluids, steroids, Pepcid, overall clinically improved. On discharge his lip, tongue swelling, facial swelling has resolved, Will be discharged home on a prednisone burst, sent home with an EpiPen for any future anaphylactic reactions. In terms of causative agents -Vancomycin, I think vancomycin is likely the causative agent, in his surgery in February for his neck surgery he had a similar type reaction at that time they thought it was potentially clindamycin. However the issue in the future is is that he has multiple antibiotic allergies, if he does need surgery in the future, if he does require antibiotics in the future, his options are quite limited, I am going to refer him to allergy in [place] for allergy testing, to get a definitive answer for his allergies to vancomycin, penicillins, clindamycin's. -The other causative agent could be potentially rocuronium, for now I would avoid its use, although I feel it is less likely as a causative agent and comparative to vancomycin Patient did have NSTEMI during this hospitalization, likely second of anaphylactic reaction, and shock, echocardiogram no acute findings, I Ally discharge him on aspirin, statin given his CAD history, will have him follow-up with cardiology as outpatient. If any chest pain please go to the emergency room. Physical Exam Const: COMMON NORMALS: no acute distress and patient oriented x3 Resp: COMMON NORMALS: normal respiratory effort, No retractions, No use of accessory muscles and clear to auscultation bilaterally AUSCULTATION: clear to auscultation bilaterally Cardio: COMMON NORMALS: regular rate, regular rhythm, S1 normal heart sound present and S2 normal heart sound present RATE: regular rate RHYTHM: regular rhythm HEART SOUNDS: S1 normal heart sound present and S2 normal heart sound present GI: COMMON NORMALS: Normal to inspection, nondistended, normoactive bowel sounds present and non-tender Extremity: COMMON NORMALS: no pedal edema Neuro: COMMON NORMALS: patient oriented x3 Psych: COMMON NORMALS: mental status grossly normal Urinary Catheter Management: Wiggins: Cath Placed During This Visit: yes Reason for Continuing Indwelling Catheter: Accurate Measurement of Urinary Output in Critically Ill Patients Urinary Catheter Date of Insertion: 06/24/23 Urinary Catheter Time of Insertion: 12:00 Discharge Data Studies Completed and Pending Completed Studies During Hospitalization Category Date Time Status XR chest 1V portable [id number] Routine Exams 06/25/23 07:00 Completed XR chest 1V portable [id number] Stat Exams 06/24/23 12:01 Completed Pending at discharge Category Date Time Status ES surgery / GI images Routine Exams 06/24/23 06:30 Ordered Basic Metabolic Panel AM LABS Lab 06/27/23 04:00 Ordered Complete Blood Count w/Auto AM LABS Lab 06/27/23 04:00 Ordered CV. echo complete* [id number] Routine Ultrasound 06/25/23 05:46 Taken Laboratory Results WBC 13.65 10^3/uL (3.29-11.43) H 06/26/23 04:00 RBC 4.36 10^6/uL (3.85-5.65) 06/26/23 04:00 Hgb 12.90 g/dL (11.27-16.99) 06/26/23 04:00 Hct 38.8 % (37-53) 06/26/23 04:00 MCV 89.0 fl (82-101) 06/26/23 04:00 MCH 29.6 pg (27-33) 06/26/23 04:00 MCHC 33.2 g/dL (30-55) 06/26/23 04:00 RDW 12.7 % (12.1-15.1) 06/26/23 04:00 Plt Count 191 10^3/cmm (157-399) 06/26/23 04:00 MPV 11.8 fL (7.4-10.4) H 06/26/23 04:00 Neut % (Auto) 83.4 % 06/26/23 04:00 Lymph % (Auto) 12.5 % 06/26/23 04:00 Ramsey % (Auto) 3.5 % 06/26/23 04:00 Eos % (Auto) 0.1 % 06/26/23 04:00 Baso % (Auto) 0.1 % 06/26/23 04:00 Neut # (Auto) 11.38 10^3/uL (1.8-7.7) H 06/26/23 04:00 Lymph # (Auto) 1.7 10^3/uL (0.8-4.8) 06/26/23 04:00 Ramsey # (Auto) 0.5 10^3/uL (0.2-0.9) 06/26/23 04:00 Eos # (Auto) 0.0 10^3/uL (0.0-0.8) 06/26/23 04:00 Baso # (Auto) 0.0 10^3/uL (0.0-0.1) 06/26/23 04:00 Nucleated RBC % (auto) 0 % 06/26/23 04:00 Nucleated RBCs # 0.0 /100WBC 06/26/23 04:00 PT 16.20 SECONDS (12.1-14.9) H 06/24/23 14:05 INR 1.25 (0.8-1.2) H 06/24/23 14:05 Sodium 138 mmol/L (136-145) 06/26/23 04:00 Potassium 4.1 mmol/L (3.5-5.1) 06/26/23 04:00 Chloride 103 mmol/L (98-107) 06/26/23 04:00 Carbon Dioxide 29 mmol/L (22-29) 06/26/23 04:00 Anion Gap 10.1 (5-19) 06/26/23 04:00 BUN 10 mg/dL (6-20) 06/26/23 04:00 Creatinine 0.6 mg/dL (0.7-1.2) L 06/26/23 04:00 GFR Calculation 140.9 mL/min (90-130) H 06/26/23 04:00 Glucose 118 mg/dL (65-115) H 06/26/23 04:00 Estimat Average Glucose 100 06/24/23 14:05 Hemoglobin A1c 5.1 % (4.0-6.0) 06/24/23 14:05 Calculated Osmolality 286 mOsm/kg (285-295) 06/26/23 04:00 Lactic Acid 3.6 mmol/L (0.5-2.2) H 06/24/23 14:05 Lactic Acid (Sepsis) 3.4 mmol/L (0.5-2.2) H 06/24/23 17:58 Calcium 8.4 mg/dL (8.5-10.5) L 06/26/23 04:00 Phosphorus 2.4 mg/dL (2.5-4.5) L 06/24/23 14:58 Magnesium 1.5 mg/dL (1.7-2.3) L 06/24/23 14:58 Total Bilirubin 0.5 mg/dL (0.15-1.2) 06/24/23 14:58 AST 24 U/L (0-40) 06/24/23 14:58 ALT 23 U/L (0-41) 06/24/23 14:58 Alkaline Phosphatase 74 U/L (40-130) 06/24/23 14:58 Troponin T Baseline 60 ng/L (0-15) H 06/24/23 14:05 Troponin T 120 Minute 76.52 ng/L (0-15) H 06/24/23 15:55 Delta Troponin T 16.52 ABS# (0-10) H* 06/24/23 15:55 Troponin T Hi Sens 6Hr 99.29 ng/L (0-15) H 06/24/23 20:24 Troponin T Hi Sens 6Hr Delta 39.29 ng/L (0-12) H* 06/24/23 20:24 NT-Pro-B Natriuret Pep 36 pg/mL (0-125) 06/24/23 14:58 Total Protein 5.9 g/dL (6.6-8.7) L 06/24/23 14:58 Albumin 4.0 g/dL (3.5-5.2) 06/24/23 14:58 Globulin 1.9 g/dL (1.3-4.6) 06/24/23 14:58 TSH 6.54 uIU/mL (0.27-4.20) H 06/24/23 14:05 Vancomycin Trough < 4.0 ug/mL (10-15) L 06/24/23 14:58 Vitals Last Vital Signs Temp 98.1 F 06/26/23 08:00 Pulse 105 H 06/26/23 10:00 Resp 29 H 06/26/23 10:00 BP 126/75 06/26/23 09:00 Pulse Ox 95 06/26/23 10:00 O2 Del Method Room Air 06/26/23 08:12 O2 Flow Rate 3 06/24/23 19:55 Discharge Plan Discharge Patient Disposition: Home Condition: Stable Prescriptions: New atorvastatin 40 mg Tablet 40 mg PO BEDTIME 30 Days Qty: 30 0RF aspirin 81 mg Tablet,Delayed Release (Dr/Ec) 81 mg PO DAILY 30 Days Qty: 30 0RF oxycodone 5 mg Tablet 5 mg PO Q6H PRN (Reason: Severe Pain) 7 Days Qty: 28 0RF prednisone 20 mg tablet 20 mg PO BID 5 Days Qty: 10 0RF EpiPen 2-Harsha 0.3 mg/0.3 mL auto-injector 0.3 mg IM Q10M PRN (Reason: anaphylaxis) Qty: 2 0RF Rx Instructions: for 2 doses Continued meclizine 25 mg tablet 25 mg PO QID PRN (Reason: motion sickness) 360 Days Qty: 90 11RF (DME) MARIJUANA 0 .Route .MEDSUPPLY Hold Instructions: Doctor's Order dicyclomine 20 mg tablet 20 mg PO DAILY albuterol sulfate 90 mcg/actuation HFA aerosol inhaler 2 puff INHALATION TID PRN (Reason: Shortness Of Breath) Qty: 8.5 3RF isosorbide mononitrate 30 mg tablet extended release 24 hr 30 mg PO QAM Qty: 90 1RF metoprolol succinate 25 mg tablet extended release 24 hr 25 mg PO DAILY Qty: 30 5RF docusate sodium [DOK] 100 mg capsule 100 mg PO BID Qty: 60 5RF loratadine 10 mg tablet 10 mg PO DAILY Qty: 90 1RF esomeprazole magnesium 40 mg capsule,delayed release(DR/EC) 40 mg PO DAILY Qty: 90 1RF clotrimazole-betamethasone 1-0.05 % cream 1 applic topical BID Qty: 45 1RF Rx Instructions: apply for 3-4 weeks diazepam [Valium] 5 mg tablet 5 mg PO BID PRN (Reason: muscle spasm) 7 Days Qty: 14 0RF tamsulosin [Flomax] 0.4 mg capsule 0.4 mg PO BID Qty: 180 1RF polyethylene glycol 3350 [Miralax] 17 gram/dose powder 4 g PO DAILY Qty: 238 0RF ondansetron HCl 4 mg tablet See Rx Instructions .ROUTE .COMPLEX Qty: 20 0RF Dose Instruction: TAKE 1 TABLET BY MOUTH EVERY 8 HOURS NEEDED FOR NAUSEA AND VOMITING Rx Instructions: TAKE 1 TABLET BY MOUTH EVERY 8 HOURS NEEDED FOR NAUSEA AND VOMITING Discontinued hydrocodone-acetaminophen 10-325 mg tablet 1 tab PO Q8H PRN (Reason: pain) 7 Days Qty: 21 0RF Discharge Orders: Discharge Order (Routine); Ordered 06/26/23 Ordered By: Hussain Garcia Other Ambulatory Orders: DME: Walker (Order) Location: None Selected Ordered By: Hussain Garcia DME: Walker (Order) Location: None Selected Ordered By: Hussain Garcia Referrals: Reanna Wilson [Referring] - 1 month (member services representative) Darwin Hand M.D [Physician] - 2 weeks Luis Manuel Mondragon DO [Physician] - 2 weeks Discharge Diet: Advance as tolerated Discharge Activity: Limit activity as instructed Patient Instructions: Oxycodone/Acetaminophen (By mouth), Prednisone (By mouth), Aspirin (By mouth), Atorvastatin (By mouth), Epinephrine Self-Injection Activity Restrictions/Additional Instructions: -If you have any chest pain please go to the emergency room -Please follow-up cardiology in 2 weeks -For now I have placed an allergy for vancomycin as anaphylaxis, I think that that is likely her allergy, I am going to have you follow-up with an member services representative in [place] for allergy testing as in the future you antibiotic choices are quite limited, and we need to know definitively if you have an allergy to vancomycin, other antibiotics include penicillins, and clindamycin -For now, also going to place an allergy to rocuronium, I do not believe that this was your adverse reaction, but to be safe I am going to put it on your allergy list -I have discharged you in a 7-day supply of oxycodone to be used sparingly for pain, do not drive operate machinery or drink while taking medication -For your allergic reaction, continue prednisone, for 5 days -I have discharged you an EpiPen, just in case if you have an anaphylactic reaction you can use it, if you do not need to use it please go to the emergency room Orthopedic discharge instructions: Keep left arm and shoulder sling and limit activity for the next 2 weeks until your follow-up appointment. To prevent frozen shoulder you can take arm out of sling and let it hang down and do pendulum swings. No weight-bear to the operative extremity. Ice and elevate as needed for pain and swelling Take pain medication as prescribed Take antinausea medication as needed May supplement for pain with ibuprofen [id number] as needed Patient should leave dressing on in place for 72 hours, at that time may remove all dressings leave sutures in place may rinse incisions with warm soapy water pat dry and redress with dry dressing. No baths or soaks Follow-up in the orthopedic office in 2 weeks Contact the office for any questions or concerns Discharge Attestations Time Spent in Discharge Care*: greater than 30 min Status at Discharge: Cognitive status at discharge: cognitively intact, Behavioral status at discharge: cooperative, Quality Metrics Clinical Quality Measures [ No reported AMI, CVA or VTE this stay] Coding Level of Care Code 25207 Total time (in minutes) for Discharge: 45 Diagnoses Anaphylactic reaction T78.2XXA Shock R57.9 Chest pain R07.9 Vancomycin adverse reaction T36.8X5A Shortness of breath R06.02
[2023-06-26] MEDS: famotidine 20 mg/2 mL INJ IVP (10:57)
[2023-06-26] MEDS: lidocaine 2% viscous 15 ML, aluminum-mag hydrox-simethicon 30 ML, sucralfate oral liq 1 GM PO (10:59)
--- NOTE | 2023-06-26 12:28 | PC.NURSE ---
Discharged patient at 1120. IV catheter removed. New medication, activity, and upcoming appointment education provided. Patient signature for signed. Unable to make appointments on weekend. Messages left with departments with instrucitons to call patient back with appointment and patient given provider's contact information.
== END 2023-06-26 11:20 | disposition home or self-care (01) | DRG 915 ==
LOC: ICU 13:01
PROVIDERS: Admitting Provider Student in an Organized Health Care Education/Training Program; PCP Family Medicine Adult Medicine; Visit Provider Family Medicine
DX: T88.6XXA Anaphylactic reaction due to adverse effect of correct drug or medicament properly administered, initial encounter (principal); I21.4 Non-ST elevation (NSTEMI) myocardial infarction; T36.8X5A Adverse effect of other systemic antibiotics, initial encounter; M75.101 Unspecified rotator cuff tear or rupture of right shoulder, not specified as traumatic; M19.011 Primary osteoarthritis, right shoulder; J44.9 Chronic obstructive pulmonary disease, unspecified; G47.33 Obstructive sleep apnea (adult) (pediatric); I25.10 Atherosclerotic heart disease of native coronary artery without angina pectoris; Z87.11 Personal history of peptic ulcer disease; F41.9 Anxiety disorder, unspecified; F32.A Depression, unspecified; K21.9 Gastro-esophageal reflux disease without esophagitis; Z88.0 Allergy status to penicillin; I95.9 Hypotension, unspecified; Z79.51 Long term (current) use of inhaled steroids; Z87.891 Personal history of nicotine dependence; Z98.1 Arthrodesis status; G62.9 Polyneuropathy, unspecified; F32.9 Major depressive disorder, single episode, unspecified; I10 Essential (primary) hypertension; E78.5 Hyperlipidemia, unspecified; Z53.8 Procedure and treatment not carried out for other reasons
CPT/HCPCS: 36415; 51702; 71045; 80048; 80053; 80202; 83036; 83605; 83735; 83880; 84100; 84443; 84484; 85025; 85610; 92523; 92610; 93005; 93306; 94640; 94664; 96372; 96376; 97116; 97161; 97166; 97535; J0131; J0171; J1100; J1650; J1720; J1885; J2250; J2405; J2704; J2765; J2795; J2920; J3010; J3105; J3370; J3475; J3490; J7030; J7613; J7626; P9045; Q0169

== ENCOUNTER → 2023-07-08 14:08 | Outpatient (BNVA) | payer MEDICAID, SELFPAY | PROVIDERS: PCP Family Medicine Adult Medicine; Visit Provider Student in an Organized Health Care Education/Training Program | DX: M75.101 Unspecified rotator cuff tear or rupture of right shoulder, not specified as traumatic (principal); M75.41 Impingement syndrome of right shoulder; M19.011 Primary osteoarthritis, right shoulder | CPT/HCPCS: 99213 ==

== ENCOUNTER → 2023-09-21 14:58 | Outpatient (BNVA) | payer MEDICAID, SELFPAY | PROVIDERS: PCP Family Medicine Adult Medicine; Visit Provider Physician Assistant | DX: M54.2 Cervicalgia (principal); M54.9 Dorsalgia, unspecified; Z98.1 Arthrodesis status; G89.29 Other chronic pain | CPT/HCPCS: 72040; 72100; 99213 ==

== ENCOUNTER → 2025-03-08 13:06 | Outpatient (BNVA) | payer MEDICAID, SELFPAY | PROVIDERS: PCP Family Medicine Adult Medicine; Visit Provider Orthopaedic Surgery | DX: Z98.1 Arthrodesis status (principal); M54.2 Cervicalgia | CPT/HCPCS: 72050; 99203 ==